=== PATIENT | female | born 1950 | race Caucasian/White ===

== ENCOUNTER → 2017-06-21 | Outpatient (CLI) | payer MEDICARE ==
[2017-06-21 13:32] LABS: HCT 36.6 % (34.0-46.0); HGB 11.6 gm/dL (11.4-16.0); Hypochromasia Slight; MCH 31.4 pg (25.0-35.0); MCHC 31.6 g/dL (31.0-37.0); MCV 99.5 fL (80.0-100.0); Macrocytosis Slight; Mean Platelet Volume 7.3; Platelet Count 244 k/uL (150-450); RBC 3.68 m/uL (3.80-5.40); RDW 14.6 % (11.5-15.5); WBC 11.7 k/uL (3.8-10.6)
[2017-06-21 13:36] LABS: Anion Gap 10 mmol/L; Blood Urea Nitrogen 23 mg/dL (7-17); Calcium 9.6 mg/dL (8.4-10.2); Carbon Dioxide 36 mmol/L (22-30); Chloride 99 mmol/L (98-107); Glucose 170 mg/dL (74-99); Magnesium 1.7 mg/dL (1.6-2.3); Phosphorus 4.1 mg/dL (2.5-4.5); Potassium 3.9 mmol/L (3.5-5.1); Sodium 145 mmol/L (137-145); Uric Acid 6.5 mg/dL (3.7-7.4)
[2017-06-21 13:48] LABS: Appearance,Urine Cloudy (Clear); Bilirubin,Urine Negative (Negative); Blood,Urine Negative (Negative); Color,Urine Yellow; Glucose,Urine (UA) Negative (Negative); Ketones,Urine Negative (Negative); Leukocyte Esterase,Urine Large (Negative); Mucus,Urine Rare /hpf; Nitrite,Urine Negative (Negative); Protein,Urine Trace (Negative); RBC,Urine 2 /hpf (0-5); Specific Gravity,Urine 1.016 (1.001-1.035); Squamous Epithelial Cell,Urine 6 /hpf (0-4); Urobilinogen,Urine <2.0 mg/dL (<2.0); WBC,Urine 169 /hpf (0-5)
[2017-06-21 19:11] LABS: Iron Saturation 18.87 (12.00-45.00)
[2017-06-21 19:42] LABS: Vitamin D 25 Hydroxy 24.3 ng/mL (30.0-100.0)
[2017-06-21 21:48] LABS: Parathyroid Hormone Intact 53.4 pg/mL (14.0-72.0)
== END | disposition home or self-care (01) ==
LOC: LABWHC1 12:36
PROVIDERS: ATTEND Nurse Practitioner Family
DX: E55.9 Vitamin D deficiency, unspecified (principal); M10.9 Gout, unspecified; E21.3 Hyperparathyroidism, unspecified; N39.0 Urinary tract infection, site not specified; D50.9 Iron deficiency anemia, unspecified; N17.9 Acute kidney failure, unspecified
CPT/HCPCS: 36415; 80048; 81001; 82306; 82728; 83540; 83550; 83735; 83970; 84100; 84550; 85027

== ENCOUNTER → 2017-08-16 | Outpatient (CLI) | payer MEDICARE ==
--- NOTE | 2017-08-16 07:27 | US ---
EXAMINATION TYPE: US duplex aorta DATE OF EXAM: 08/16/2017 COMPARISON: NONE CLINICAL HISTORY: Z13.9 screening for disorder. Pt had heart surgery stents 2008 pt on O2 , hard to hold breath EXAM MEASUREMENTS: Abdominal Aorta: Proximal: 2.3 cm Mid: 1.3 cm Distal: 1.2 cm Bifurcation: 0.78 cm 0.86 cm wnl IMPRESSION: No sonographic evidence of abdominal aortic aneurysm.
== END | disposition home or self-care (01) ==
LOC: RADUSWWP 06:56
PROVIDERS: ATTEND Family Medicine
DX: Z13.9 Encounter for screening, unspecified (principal); Z88.0 Allergy status to penicillin
CPT/HCPCS: 93979

== ENCOUNTER → 2017-10-04 | Outpatient (CLI) | payer MEDICARE ==
[2017-10-04 09:54] LABS: Calcium 9.6 mg/dL (8.4-10.2)
== END | disposition home or self-care (01) ==
LOC: LABWHC1 08:34
PROVIDERS: ATTEND Internal Medicine Interventional Cardiology
DX: I10 Essential (primary) hypertension (principal)
CPT/HCPCS: 36415; 80048

== ENCOUNTER → 2017-11-04 | Outpatient (CLI) | payer MEDICARE ==
--- NOTE | 2017-11-08 13:05 | MM ---
Reason for exam: screening (asymptomatic). Last mammogram was performed 11 months ago. History: Patient is postmenopausal. Family history of breast cancer in sister at age 60. Physical Findings: A clinical breast exam by your physician is recommended on an annual basis and results should be correlated with mammographic findings. MG 3D Screening Mammo W/Cad Bilateral CC and MLO view(s) were taken. Prior study comparison: December 02, 2016, mammogram, performed at [facility]. February 26, 2016, mammogram, performed at [facility]. There is chronic nodularity in the left breast. ASSESSMENT: Benign, BI-RAD 2 RECOMMENDATION: Routine screening mammogram of both breasts in 1 year.
== END | disposition home or self-care (01) ==
LOC: RADMAMWWP 09:22
PROVIDERS: ATTEND Family Medicine
DX: Z12.31 Encounter for screening mammogram for malignant neoplasm of breast (principal); Z80.3 Family history of malignant neoplasm of breast; Z78.0 Asymptomatic menopausal state
CPT/HCPCS: 77063; 77067

== ENCOUNTER → 2018-08-15 | Outpatient (CLI) | payer MEDICARE ==
[2018-08-15 08:21] LABS: HCT 41.9 % (34.0-46.0); HGB 13.1 gm/dL (11.4-16.0); MCH 33.8 pg (25.0-35.0); MCHC 31.4 g/dL (31.0-37.0); MCV 107.6 fL (80.0-100.0); Macrocytosis Marked; Mean Platelet Volume 7.3; Platelet Count 197 k/uL (150-450); RBC 3.89 m/uL (3.80-5.40); RDW 15.2 % (11.5-15.5); WBC 12.4 k/uL (3.8-10.6)
[2018-08-15 16:38] LABS: Anion Gap 14.9 mmol/L (4.00-12.00); Calcium 9.9 mg/dL (8.7-10.3); Carbon Dioxide 38.1 mmol/L (21.6-31.8); Potassium 2.9 mmol/L (3.5-5.5)
== END | disposition home or self-care (01) ==
LOC: LABWHC1 07:49
PROVIDERS: ATTEND Internal Medicine Interventional Cardiology
DX: I27.21 Secondary pulmonary arterial hypertension (principal)
CPT/HCPCS: 36415; 80048; 85027

== ENCOUNTER → 2018-08-29 | Outpatient (CLI) | payer MEDICARE ==
[2018-08-29 16:18] LABS: Anion Gap 13.2 mmol/L (4.00-12.00); Calcium 10.6 mg/dL (8.7-10.3); Carbon Dioxide 38.8 mmol/L (21.6-31.8); Potassium 2.8 mmol/L (3.5-5.5)
== END | disposition home or self-care (01) ==
LOC: LABWHC1 08:56
PROVIDERS: ATTEND Nurse Practitioner
DX: E11.9 Type 2 diabetes mellitus without complications (principal); I27.21 Secondary pulmonary arterial hypertension
CPT/HCPCS: 36415; 80048; 83735

== ENCOUNTER 2018-09-06 00:51 | Inpatient (IN) | payer MEDICARE ==
--- NOTE | 2018-09-06 02:32 | XR ---
EXAM: XR Chest, 1 View CLINICAL HISTORY: ITS.REASON XR Reason: chest pain TECHNIQUE: Frontal view of the chest. COMPARISON: No relevant prior studies available. FINDINGS: Lungs: Prominent pulmonary vascularity with mild basilar opacities. Pleural space: No significant pleural effusion or pneumothorax. Heart: Enlarged cardiomediastinal silhouette. Mediastinum: See above. Bones/joints: Sternotomy wires noted. IMPRESSION: 1. Prominent pulmonary vascularity with mild basilar opacities. Correlate clinically regarding edema or infection. 2. Enlarged cardiomediastinal silhouette.
[2018-09-06 03:05] LABS: Basophils % (A) 0 %; Eosinophils # (A) 0.3 k/uL (0-0.7); Eosinophils % (A) 2 %; HCT 42.2 % (34.0-46.0); HGB 14.2 gm/dL (11.4-16.0); Lymphocytes # (A) 1.8 k/uL (1.0-4.8); Lymphocytes % (A) 12 %; MCH 33.9 pg (25.0-35.0); MCHC 33.6 g/dL (31.0-37.0); Macrocytosis Slight; Mean Platelet Volume 9.3; Monocytes # (A) 0.9 k/uL (0-1.0); Monocytes % (A) 6 %; Neutrophils # (A) 11.5 k/uL (1.3-7.7); Neutrophils % (A) 78 %; Platelet Count 179 k/uL (150-450); RBC 4.19 m/uL (3.80-5.40); RDW 15.6 % (11.5-15.5); WBC 14.7 k/uL (3.8-10.6)
--- NOTE | 2018-09-06 03:19 | ED ---
Chest Pain HPI - General Chief Complaint: Chest Pain Stated Complaint: Lft Rib Pain SOB CHF Time Seen by Provider: 09/06/18 01:19 Source: family Mode of arrival: ambulatory Limitations: no limitations - History of Present Illness Initial Comments: This patient is a 67-year-old woman who presents to be evaluated for left-sided chest pain, cough, and shortness of breath. When asked about the chest pain, patient states that it feels like "pleurisy." She believes that it has been coming on since afternoon into the evening. The pain is moderately severe. It is worse with taking a deep breath or with certain movements. Patient also has been somewhat short of breath, stating that it feels like her heart failure is acting up. Patient's family members state that they had checked her pulse ox reading at home and it was low. She also is having cough. MD Complaint: chest pain Onset/Timin -: days(s) Onset: during rest Pain Location: left chest Pain Radiation: none Severity: moderate Quality: aching, sharp Consistency: constant Improves With: nothing Worsens With: inspiration, movement Anginal Symptoms: dyspnea Treatments Prior to Arrival: none - Related Data Home Medications Medication Instructions Recorded Confirmed Apixaban [Eliquis] 5 mg PO BID 03/10/16 09/06/18 Atenolol 25 mg PO BID 03/10/16 09/06/18 Atorvastatin [Lipitor] 40 mg PO DAILY 03/10/16 09/06/18 metFORMIN HCL [Glucophage] 500 mg PO BID 03/10/16 09/06/18 Allopurinol [Zyloprim] 100 mg PO DAILY 03/30/18 09/06/18 Insulin Detemir (Levemir) [Levemir] 20 unit SQ DAILY 03/30/18 09/06/18 Oxybutynin Chloride [Ditropan] 5 mg PO BID 03/30/18 09/06/18 ALPRAZolam [Xanax] 0.5 mg PO DAILY PRN 09/06/18 09/06/18 Clotrimazole 10 mg MUCOUS MEM 5XD 09/06/18 09/06/18 Donepezil [Aricept] 10 mg PO DAILY 09/06/18 09/06/18 Ferrous Sulfate [Iron] 325 mg PO DAILY 09/06/18 09/06/18 INSULIN LISPRO (humaLOG) [humaLOG] 5 units SQ TID 09/06/18 09/06/18 Magnesium 400 mg PO DAILY 09/06/18 09/06/18 Metolazone [Zaroxolyn] 5 mg PO DAILY 09/06/18 09/06/18 Potassium Chloride 10 meq PO DAILY 09/06/18 09/06/18 Allergies Allergy/AdvReac Type Severity Reaction Status Date / Time codeine Allergy "made me Verified 09/06/18 08:21 feel antsy" Penicillins Allergy Swelling Verified 09/06/18 08:21 Review of Systems ROS Statement: Those systems with pertinent positive or pertinent negative responses have been documented in the HPI. ROS Other: All systems not noted in ROS Statement are negative. Constitutional: Denies: fever, chills Respiratory: Reports: cough, dyspnea Cardiovascular: Reports: chest pain, orthopnea, edema. Denies: palpitations, syncope Gastrointestinal: Denies: abdominal pain, nausea, vomiting Genitourinary: Denies: dysuria Musculoskeletal: Denies: back pain Skin: Denies: rash Neurological: Denies: headache, weakness, numbness EKG Findings - EKG Results: EKG: interpreted by ERMD, sinus rhythm (With PACs) EKG shows: bradycardia (Rate 58 bpm) - Blocks, [place], Hypertrophy, ST Abn: AV and intraventricular conduction: 1 AV block, intraventricular conduction delay QRS axis and voltage: left axis deviation (-30 to -90) Repolarization changes or abnormalities: ST or T wave suggestive of ischemia (Possible lateral ischemia.) Past Medical History Past Medical History: Atrial Fibrillation, Coronary Artery Disease (CAD), COPD, CVA/TIA, Diabetes Mellitus, Deep Vein Thrombosis (DVT), Hyperlipidemia, Hypertension, Sleep Apnea/CPAP/BIPAP Additional Past Medical History / Comment(s): O2 USE NEEDED VIA NC AT 3L, HX OF ANEMIA History of Any Multi-Drug Resistant Organisms: None Reported Past Surgical History: Cardiac Valve Replacement, Heart Catheterization With Stent, Hysterectomy, Orthopedic Surgery Additional Past Surgical History / Comment(s): AORTIC VALVE (BOVINE), WESLY FILTER, ZOIE CATARACT SX, HEART STENT X2 Past Anesthesia/Blood Transfusion Reactions: Previous Problems w/ Anesthesia Additional Past Anesthesia/Blood Transfusion Reaction / Comment(s): TROUBLE WAKING UP IN PAST Date of Last Stent Placement:: 2004 Past Psychological History: Anxiety Smoking Status: Former smoker Past Alcohol Use History: None Reported Past Drug Use History: None Reported - Past Family History Father Family Medical History: Cancer Sister(s) Family Medical History: Cancer Additional Family Medical History / Comment(s): BREAST General Exam Limitations: no limitations General appearance: alert, in distress (Patient does appear to be in mild respiratory distress) Head exam: Present: atraumatic, normocephalic Eye exam: Present: normal appearance. Absent: scleral icterus, conjunctival injection Respiratory exam: Present: respiratory distress, rales (Bilateral bases), chest wall tenderness. Absent: wheezes, rhonchi, stridor, accessory muscle use, decreased breath sounds Cardiovascular Exam: Present: regular rate, normal rhythm, normal heart sounds. Absent: systolic murmur, diastolic murmur, rubs, gallop GI/Abdominal exam: Present: soft. Absent: distended, tenderness, guarding, rebound, rigid Extremities exam: Present: normal inspection, normal capillary refill, pedal edema (Mild edema at the ankles bilaterally). Absent: calf tenderness Neurological exam: Present: alert Skin exam: Present: warm, dry, intact, normal color. Absent: rash Course Vital Signs 09/06/18 09/06/18 09/06/18 00:56 01:30 01:50 Temperature 97.8 F Pulse Rate 60 52 L 56 L Pulse Rate [ Pulse Oximetery ] Respiratory 18 Rate Blood Pressure 125/59 119/86 134/64 Blood Pressure [Left Arm] O2 Sat by Pulse 89 L 80 L 94 L Oximetry 09/06/18 09/06/18 09/06/18 02:10 02:20 02:40 Temperature Pulse Rate 56 L 56 L 55 L Pulse Rate [ Pulse Oximetery ] Respiratory Rate Blood Pressure 110/50 111/68 131/51 Blood Pressure [Left Arm] O2 Sat by Pulse 97 92 L 90 L Oximetry 09/06/18 09/06/18 09/06/18 02:50 03:10 03:20 Temperature Pulse Rate 56 L 57 L 57 L Pulse Rate [ Pulse Oximetery ] Respiratory Rate Blood Pressure 112/60 134/67 135/64 Blood Pressure [Left Arm] O2 Sat by Pulse 92 L 83 L 90 L Oximetry 09/06/18 09/06/18 09/06/18 03:40 03:50 04:10 Temperature Pulse Rate 56 L 56 L 53 L Pulse Rate [ Pulse Oximetery ] Respiratory Rate Blood Pressure 152/78 124/97 128/63 Blood Pressure [Left Arm] O2 Sat by Pulse 82 L 95 89 L Oximetry 09/06/18 09/06/18 09/06/18 04:20 04:40 04:50 Temperature Pulse Rate 59 L 58 L 58 L Pulse Rate [ Pulse Oximetery ] Respiratory Rate Blood Pressure 148/84 153/90 125/59 Blood Pressure [Left Arm] O2 Sat by Pulse 89 L 81 L 80 L Oximetry 09/06/18 09/06/18 09/06/18 05:00 05:20 05:30 Temperature Pulse Rate 58 L 60 60 Pulse Rate [ Pulse Oximetery ] Respiratory Rate Blood Pressure 125/59 137/82 137/82 Blood Pressure [Left Arm] O2 Sat by Pulse 88 L 90 L Oximetry 09/06/18 09/06/18 09/06/18 05:40 06:10 06:30 Temperature Pulse Rate 55 L 55 L 63 Pulse Rate [ Pulse Oximetery ] Respiratory Rate Blood Pressure 113/76 136/62 136/62 Blood Pressure [Left Arm] O2 Sat by Pulse 95 100 Oximetry 09/06/18 09/06/18 09/06/18 06:40 06:50 07:00 Temperature Pulse Rate 63 64 62 Pulse Rate [ Pulse Oximetery ] Respiratory Rate Blood Pressure 136/62 136/62 Blood Pressure [Left Arm] O2 Sat by Pulse 90 L 79 L 81 L Oximetry 09/06/18 09/06/18 09/06/18 07:10 07:20 07:30 Temperature Pulse Rate 56 L 62 70 Pulse Rate [ Pulse Oximetery ] Respiratory Rate Blood Pressure 148/47 148/47 148/47 Blood Pressure [Left Arm] O2 Sat by Pulse 83 L 94 L Oximetry 09/06/18 09/06/18 09/06/18 07:47 08:43 09:00 Temperature Pulse Rate Pulse Rate [ 56 L Pulse Oximetery ] Respiratory 18 Rate Blood Pressure Blood Pressure 112/56 [Left Arm] O2 Sat by Pulse 97 96 98 Oximetry 09/06/18 12:00 Temperature Pulse Rate Pulse Rate [ 63 Pulse Oximetery ] Respiratory 18 Rate Blood Pressure Blood Pressure [Left Arm] O2 Sat by Pulse Oximetry Critical Care Time Critical Care Time: Yes (30 minutes) Disposition Clinical Impression: Acute exacerbation of CHF (congestive heart failure) Disposition: ADMITTED IP TO THIS HOSP Condition: Poor
[2018-09-06 03:20] LABS: INR 1.2 (<1.2); Prothrombin Time 12.4 sec (9.0-12.0)
[2018-09-06 03:34] LABS: Albumin 4.2 g/dL (3.5-5.0); Calcium 10.1 mg/dL (8.4-10.2); Potassium 3.1 mmol/L (3.5-5.1); Total Bilirubin 1.8 mg/dL (0.2-1.3); Total Protein 8.1 g/dL (6.3-8.2)
[2018-09-06 03:36] LABS: MCV 100.9 fL (80.0-100.0)
[2018-09-06] MEDS ORDERED: FUROSEMIDE 10 MG/ML 4 ML VIAL IV STA (04:45)
[2018-09-06] MEDS ORDERED: NITROGLYCERIN OINT 1 INCH/GM PACKET TOPICAL STA (04:46)
[2018-09-06] MEDS ORDERED: ACETAMINOPHEN TAB 325 MG TAB PO STA (05:06)
[2018-09-06] MEDS ORDERED: MORPHINE SULFATE 2 MG/ML SYRINGE IVP STA (05:07)
[2018-09-06] MEDS: FUROSEMIDE 10 MG/ML 4 ML VIAL IV SCH ×2 (05:17→17:49)
[2018-09-06] MEDS ORDERED: ONDANSETRON 4 MG/2 ML VIAL IVP STA (06:16)
[2018-09-06] MEDS ORDERED: POTASSIUM CHLORIDE ER 20 MEQ TAB.ER PO STA ×2 (06:39→12:14)
[2018-09-06] MEDS ORDERED: HYDROCHLOROTHIAZIDE 25 MG TAB PO SCH (09:00)
--- NOTE | 2018-09-06 10:14 | NM ---
EXAMINATION TYPE: NM pul perfusion DATE OF EXAM: 09/06/2018 COMPARISON: 09/06/2018 HISTORY: Pain Following administration of 4.86 mCi Tc 99m MAA. Images obtained post injection. FINDINGS: Perfusion images are performed. No ventilation images are acquired. Patient was unable to complete th e ventilation portion exam which results in a nondiagnostic exam. There does appear to be perfusion d efects along the peripheral margin of the left lung. IMPRESSION: Exam is nondiagnostic due to the patient's inability to complete the exam. Fusion defects along the p eripheral margin of the left lung. Pulmonary angles and could not be excluded by this study. Given th e limitation consider CT pulmonary angiogram.
--- NOTE | 2018-09-06 11:54 | ECHOF ---
Referral Reason:CHF exacerbation MEASUREMENTS -------- HEIGHT: 154.9 cm WEIGHT: 106.6 kg BP: 136/62 RVIDd: 3.8 cm (< 3.3) IVSd: 1.1 cm (0.6 - 1.1) LVIDd: 5.3 cm (3.9 - 5.3) LVPWd: 1.1 cm (0.6 - 1.1) IVSs: 1.6 cm LVIDs: 4.4 cm LVPWs: 1.4 cm LA Diam: 3.9 cm (2.7 - 3.8) LAESV Index (A-L): 39.36 ml/m Ao Diam: 2.5 cm (2.0 - 3.7) AV Cusp: 1.6 cm (1.5 - 2.6) MV EXCURSION: 17.007 mm (> 18.000) MV EF SLOPE: 61 mm/s (70 - 150) EPSS: 1.5 cm AV maxP.52 mmHg AV meanP.61 mmHg AR PHT: 643 ms RAP: 15.00 mmHg RVSP: 78.71 mmHg FINDINGS -------- This was a technically adequate study. The left ventricular size is normal. There is borderline concentric left ventricular hypertrophy. Overall left ventricular systolic function is mild-moderately impaired with, an EF between 40 - 45 % . Mid inferoseptal LV wall motion is hypokinetic. Apical inferior LV wall motion is hypokinetic. Apical septum LV wall motion is hypokinetic. The right ventricle is mild to moderately enlarged. LA is moderately dilated 34-39 ml/m2 The right atrium is normal in size. Peak/mean gradient across the Aortic Valve is 68.52mmHg / 31.61mmHg. There is moderate regurgitatio n of the bioprosthetic aortic valve. There is moderate stenosis of the bioprosthetic aortic valve. The mitral valve leaflets are mildly thickened. Mild mitral annular calcification present. Modera te mitral regurgitation is present. Moderate to severe tricuspid regurgitation present. There is severe pulmonary hypertension. The r ight ventricular systolic pressure, as measured by Doppler, is 78.71mmHg. Trace/mild (physiologic) pulmonic regurgitation. The aortic root size is normal. The inferior vena cava is dilated with no significant inspiratory collapse which is consistent estima sade right atrial pressure of >15 mmHg. There is no pericardial effusion. CONCLUSIONS -------- 1. This was a technically adequate study. 2. The left ventricular size is normal. 3. There is borderline concentric left ventricular hypertrophy. 4. Mid inferoseptal LV wall motion is hypokinetic. 5. Apical inferior LV wall motion is hypokinetic. 6. Apical septum LV wall motion is hypokinetic. 7. The right ventricle is mild to moderately enlarged. 8. LA is moderately dilated 34-39 ml/m2 9. The right atrium is normal in size. 10. Peak/mean gradient across the Aortic Valve is 68.52mmHg / 31.61mmHg. 11. There is moderate regurgitation of the bioprosthetic aortic valve. 12. The mitral valve leaflets are mildly thickened. 13. Mild mitral annular calcification present. 14. Moderate mitral regurgitation is present. 15. Moderate to severe tricuspid regurgitation present. 16. There is severe pulmonary hypertension. 17. The right ventricular systolic pressure, as measured by Doppler, is 78.71mmHg. 18. Trace/mild (physiologic) pulmonic regurgitation. 19. The aortic root size is normal. 20. The inferior vena cava is dilated with no significant inspiratory collapse which is consistent es timated right atrial pressure of >15 mmHg. 21. There is no pericardial effusion. DYE EXPERT: Abbey Kaplan RDCS
--- NOTE | 2018-09-06 12:09 | P.HPIM ---
History of Present Illness 67-year-old female on presented emergency room with complaints of left-sided chest pain shortness of breath. Patient found to be hypoxic. Patient is on home O2 for rest trach failure. Patient noted to have congestive heart failure with systolic dysfunction ejection fraction 40-45% severe pulmonary hypertension. Patient does have history of aortic valve replacement. Patient has intermittent atrial fibrillation. Patient has coronary disease with stents. COPD diabetes type 2 hypertension. Patient has developed some weakness and home Review of Systems Constitutional: Reports fatigue Cardiovascular: Reports chest pain, Reports edema, Reports shortness of breath Respiratory: Reports dyspnea Past Medical History Past Medical History: Atrial Fibrillation, Coronary Artery Disease (CAD), COPD, CVA/TIA, Diabetes Mellitus, Deep Vein Thrombosis (DVT), Hyperlipidemia, Hypertension, Sleep Apnea/CPAP/BIPAP Additional Past Medical History / Comment(s): O2 USE NEEDED VIA NC AT 4L, HX OF ANEMIA History of Any Multi-Drug Resistant Organisms: None Reported Past Surgical History: Cardiac Valve Replacement, Coronary Bypass/CABG, Heart Catheterization With Stent, Hysterectomy, Orthopedic Surgery Additional Past Surgical History / Comment(s): AORTIC VALVE (BOVINE), WESLY FILTER, ZOIE CATARACT SX, HEART STENT X2 Past Anesthesia/Blood Transfusion Reactions: Previous Problems w/ Anesthesia Additional Past Anesthesia/Blood Transfusion Reaction / Comment(s): TROUBLE WAKING UP IN PAST Date of Last Stent Placement:: 2004 Past Psychological History: Anxiety Smoking Status: Former smoker Past Alcohol Use History: None Reported Additional Past Alcohol Use History / Comment(s): SMOKED 1PPD OR MORE SINCE AGE 13 (1963) QUIT APPROX 2009 Past Drug Use History: None Reported - Past Family History Father Family Medical History: Cancer Sister(s) Family Medical History: Cancer Additional Family Medical History / Comment(s): BREAST Medications and Allergies Home Medications Medication Instructions Recorded Confirmed Type Apixaban [Eliquis] 5 mg PO BID 03/10/16 09/06/18 History Atenolol 25 mg PO BID 03/10/16 09/06/18 History Atorvastatin [Lipitor] 40 mg PO DAILY 03/10/16 09/06/18 History metFORMIN HCL [Glucophage] 500 mg PO BID 03/10/16 09/06/18 History Allopurinol [Zyloprim] 100 mg PO DAILY 03/30/18 09/06/18 History Insulin Detemir (Levemir) [Levemir] 20 unit SQ DAILY 03/30/18 09/06/18 History Oxybutynin Chloride [Ditropan] 5 mg PO BID 03/30/18 09/06/18 History ALPRAZolam [Xanax] 0.5 mg PO DAILY PRN 09/06/18 09/06/18 History Clotrimazole 10 mg MUCOUS MEM 5XD 09/06/18 09/06/18 History Donepezil [Aricept] 10 mg PO DAILY 09/06/18 09/06/18 History Ferrous Sulfate [Iron] 325 mg PO DAILY 09/06/18 09/06/18 History INSULIN LISPRO (humaLOG) [humaLOG] 5 units SQ TID 09/06/18 09/06/18 History Magnesium 400 mg PO DAILY 09/06/18 09/06/18 History Metolazone [Zaroxolyn] 5 mg PO DAILY 09/06/18 09/06/18 History Potassium Chloride 10 meq PO DAILY 09/06/18 09/06/18 History Allergies Allergy/AdvReac Type Severity Reaction Status Date / Time codeine Allergy "made me Verified 09/06/18 08:21 feel antsy" Penicillins Allergy Swelling Verified 09/06/18 08:21 Physical Exam Vitals: Vital Signs Temp Pulse Pulse Resp BP BP Pulse Ox 09/06/18 09:00 56 L 18 112/56 98 09/06/18 08:43 96 09/06/18 07:47 97 09/06/18 07:30 70 148/47 09/06/18 07:20 62 148/47 94 L 09/06/18 07:10 56 L 148/47 83 L 09/06/18 07:00 62 81 L 09/06/18 06:50 64 136/62 79 L 09/06/18 06:40 63 136/62 90 L 09/06/18 06:30 63 136/62 09/06/18 06:10 55 L 136/62 100 09/06/18 05:40 55 L 113/76 95 09/06/18 05:30 60 137/82 09/06/18 05:20 60 137/82 90 L 09/06/18 05:00 58 L 125/59 88 L 09/06/18 04:50 58 L 125/59 80 L 09/06/18 04:40 58 L 153/90 81 L 04/09/19 04:20 59 L 148/84 89 L 09/06/18 04:10 53 L 128/63 89 L 09/06/18 03:50 56 L 124/97 95 09/06/18 03:40 56 L 152/78 82 L 09/06/18 03:20 57 L 135/64 90 L 09/06/18 03:10 57 L 134/67 83 L 09/06/18 02:50 56 L 112/60 92 L 09/06/18 02:40 55 L 131/51 90 L 09/06/18 02:20 56 L 111/68 92 L 09/06/18 02:10 56 L 110/50 97 09/06/18 01:50 56 L 134/64 94 L 09/06/18 01:30 52 L 119/86 80 L 09/06/18 00:56 97.8 F 60 18 125/59 89 L Intake and Output 09/05/18 09/06/18 09/06/18 22:59 06:59 14:59 Output Total 300 Balance -300 Output: Urine 300 Other: Weight 106.594 kg - Constitutional General appearance: mild distress, obese - EENT Eyes: PERRLA Ears: bilateral: normal - Neck Neck: normal ROM - Respiratory Respiratory: bilateral: diminished - Cardiovascular Rhythm: regular ankle Peripheral Edema: bilateral: 2+ - Gastrointestinal General gastrointestinal: soft - Integumentary Integumentary: normal - Neurologic Neurologic: CNII-XII intact - Musculoskeletal Musculoskeletal: generalized weakness - Psychiatric Psychiatric: A&O x's 3, appropriate affect, intact judgment & insight Results CBC & Chem 7: 09/06/18 01:26 09/06/18 01:26 Labs: Abnormal Lab Results - Last 24 Hours (Table) 09/06/18 09/06/18 09/06/18 Range/Units 01:26 01:26 01:26 WBC 14.7 H (3.8-10.6) k/uL MCV 100.9 H D (80.0-100.0) fL RDW 15.6 H (11.5-15.5) % Neutrophils # 11.5 H (1.3-7.7) k/uL PT 12.4 H (9.0-12.0) sec INR 1.2 H (<1.2) D-Dimer 1.00 H (<0.60) mg/L FEU Potassium 3.1 L (3.5-5.1) mmol/L Chloride 90 L (98-107) mmol/L Carbon Dioxide 38 H (22-30) mmol/L BUN 76 H (7-17) mg/dL Creatinine 1.12 H (0.52-1.04) mg/dL Glucose 236 H (74-99) mg/dL Total Bilirubin 1.8 H (0.2-1.3) mg/dL Alkaline Phosphatase 178 H (38-126) U/L Troponin I (0.000-0.034) ng/mL 09/06/18 09/06/18 Range/Units 01:26 07:48 WBC (3.8-10.6) k/uL MCV (80.0-100.0) fL RDW (11.5-15.5) % Neutrophils # (1.3-7.7) k/uL PT (9.0-12.0) sec INR (<1.2) D-Dimer (<0.60) mg/L FEU Potassium (3.5-5.1) mmol/L Chloride (98-107) mmol/L Carbon Dioxide (22-30) mmol/L BUN (7-17) mg/dL Creatinine (0.52-1.04) mg/dL Glucose (74-99) mg/dL Total Bilirubin (0.2-1.3) mg/dL Alkaline Phosphatase (38-126) U/L Troponin I 0.056 H* 0.048 H* (0.000-0.034) ng/mL Chest x-ray: report reviewed Thrombosis Risk Factor Assmnt - Choose All That Apply Any of the Below Risk Factors Present?: Yes Each Factor Represents 1 point: Medical pt on bed rest, Obesity (BMI >25) Other Risk Factors: Yes Each Risk Factor Represents 2 Points: Age 61-74 years Thrombosis Risk Factor Assessment Total Risk Factor Score: 4 Thrombosis Risk Factor Assessment Level: Moderate Risk Assessment and Plan Plan: Assessment Acute on chronic exacerbation of congestive heart failure ejection fraction 40- 45% systolic dysfunction Severe pulmonary hypertension Respiratory failure acute on chronic hypoxic Intermittent atrial fibrillation Coronary disease with stents COPD CVA/TIA Diabetes type 2 History of DVT Hypertension Hyperlipidemia Sleep apnea on BiPAP Aortic valve replacement Plan Consultation with cardiology and pulmonology
[2018-09-06 12:19] LABS: Calcium 10.1 mg/dL (8.4-10.2)
[2018-09-06 12:32] LABS: Potassium 2.6 mmol/L (3.5-5.1)
[2018-09-06] MEDS: metFORMIN 500 MG TAB PO SCH (12:33)
[2018-09-06] MEDS: ALLOPURINOL 100 MG TAB PO SCH (12:38)
[2018-09-06] MEDS: ATORVASTATIN 40 MG TAB PO SCH (12:38)
[2018-09-06] MEDS: ATENOLOL 25 MG TAB PO SCH ×2 (12:38→20:13)
[2018-09-06] MEDS: APIXABAN 5 MG TAB PO SCH ×2 (12:38→20:13)
[2018-09-06] MEDS: NITROGLYCERIN OINT 1 INCH/GM PACKET TOPICAL SCH ×4 (12:39→21:53)
[2018-09-06] MEDS: INSULIN ASPART (NovoLOG) 100 UNIT/ML VIAL SQ SCH ×3 (12:49→21:54)
[2018-09-06] MEDS ORDERED: Potassium Replacement Protocol 1 EACH MISC MISCELLANE PRN (12:51)
[2018-09-06] MEDS: INSULIN DETEMIR (LEVEMIR) 100 UNIT/ML SYR SQ SCH (15:38)
[2018-09-06 16:45] LABS: Glucose,Whole Blood 202 mg/dL (75-99)
[2018-09-06] MEDS: POTASSIUM CHLORIDE ER 20 MEQ TAB.ER PO SCH ×2 (17:48→19:01)
[2018-09-06] MEDS ORDERED: ONDANSETRON 4 MG/2 ML VIAL IVP PRN (17:59)
[2018-09-06] MEDS ORDERED: IPRATROPIUM-ALBUTEROL 3 ML NEB INHALATION PRN (18:01)
--- NOTE | 2018-09-06 18:03 | P.CNPUL ---
History of Present Illness Consult date: 09/06/18 Requesting physician: Geraldo Frank Reason for consult: chest pain, abnormal CXR/CT Chief complaint: Left-sided chest pain History of present illness: This is a 67-year-old white female patient with history of chronic hypoxemic respiratory failure due to history of COPD, and chronic congestive heart failure, previous history of aortic valve replacement bioprosthetic valve in 2009 at [facility] [place], history of atrial fibrillation on chronic anticoagulation in the form of Eliquis, previous history of smoking, patient carries over 50 years of smoking history, quit smoking in 2009, history of CVA with memory impairment. Patient resides with her daughter and her family, requires extensive supervision and assistance with her ADLs, she walks with a walker. On 09/06/2018 patient was brought to the emergency department evaluation of left- sided chest pain, there is a sharp stabbing pain on the left chest wall under the left breast wrapping around to the left posterior back, which is exacerbated by palpation, deep breathing coughing and moving. There is a question whether the patient had possibly injured herself at home, but she denies any history of falls, denies any injury to the chest wall. There is no bruising on the left chest wall, no obvious deformity. Patient denied any fever or chills. Denied any ringing in the lower extremities. Patient's family noted a low pulse oximetry readings at home, patient is on home oxygen at 4 L. She used to see Dr. [facility], and follows with Dr. IGNACIO Sousa history of congestive heart failure. No cough, no chest congestion, chest x-ray was completed showing prominent pulmonary vascularity with mild basilar opacities, related to congestive heart failure exacerbation, lab work showed white blood cell count of 14.7, hemoglobin of 14.2, d-dimer was mildly elevated at 1.0, sodium was 140, potassium is 3.1, chloride is 90, CO2 is 38, BUN 76, creatinine is 1.12. Patient had a bone elevation of 0.056, 0.048, 0.048. ProBNP was elevated at 5090. Pulse ox was 79% on 4 L, currently patient is on 15 L per high flow nasal cannula, her pulse ox in the 100%, BiPAP was ordered by attending physician, patient does have history of obstructive sleep apnea, she is on CPAP at home and according to her daughter is only at 3 cm of water. Potassium was 2.6, patient is on Zaroxolyn at home. Lung sounds reveal fine rales at the bases, diminished breath sounds. Patient has chronic lower extremity edema. Echocardiogram was completed, and showed the EF of 40-45%, moderate regurgitation of the bioprosthetic aortic valve with peak/mean gradient across the aortic valve of 68.5 mmHg/31.6 mmHg. Moderate mitral regurgitation, severe tricuspid regurgitation, severe pulmonary hypertension with right-sided pressures of 78 mmHg. VQ scan was completed and was nondiagnostic due to patient's inability to complete exam. Review of Systems All systems: negative Constitutional: Denies chills, Denies fever Eyes: denies blurred vision, denies pain Ears, nose, mouth and throat: Denies headache, Denies sore throat Cardiovascular: Reports chest pain, Denies shortness of breath Respiratory: Reports dyspnea, Denies cough Gastrointestinal: Denies abdominal pain, Denies diarrhea, Denies nausea, Denies vomiting Genitourinary: Denies dysuria, Denies hematuria Musculoskeletal: Denies myalgias Integumentary: Denies pruritus, Denies rash Neurological: Denies numbness, Denies weakness Psychiatric: Denies anxiety, Denies depression Endocrine: Denies fatigue, Denies weight change Past Medical History Past Medical History: Atrial Fibrillation, Coronary Artery Disease (CAD), COPD, CVA/TIA, Diabetes Mellitus, Deep Vein Thrombosis (DVT), Hyperlipidemia, Hypertension, Sleep Apnea/CPAP/BIPAP Additional Past Medical History / Comment(s): O2 USE NEEDED VIA NC AT 4L, HX OF ANEMIA History of Any Multi-Drug Resistant Organisms: None Reported Past Surgical History: Cardiac Valve Replacement, Coronary Bypass/CABG, Heart Catheterization With Stent, Hysterectomy, Orthopedic Surgery Additional Past Surgical History / Comment(s): AORTIC VALVE (BOVINE), WESLY FILTER, ZOIE CATARACT SX, HEART STENT X2 Past Anesthesia/Blood Transfusion Reactions: Previous Problems w/ Anesthesia Additional Past Anesthesia/Blood Transfusion Reaction / Comment(s): TROUBLE WAKING UP IN PAST Date of Last Stent Placement:: 2004 Past Psychological History: Anxiety Smoking Status: Former smoker Past Alcohol Use History: None Reported Additional Past Alcohol Use History / Comment(s): SMOKED 1PPD OR MORE SINCE AGE 13 (1965) QUIT APPROX 2009 Past Drug Use History: None Reported - Past Family History Father Family Medical History: Cancer Sister(s) Family Medical History: Cancer Additional Family Medical History / Comment(s): BREAST Medications and Allergies Home Medications Medication Instructions Recorded Confirmed Type Apixaban [Eliquis] 5 mg PO BID 03/10/16 09/06/18 History Atenolol 25 mg PO BID 03/10/16 09/06/18 History Atorvastatin [Lipitor] 40 mg PO DAILY 03/10/16 09/06/18 History metFORMIN HCL [Glucophage] 500 mg PO BID 03/10/16 09/06/18 History Allopurinol [Zyloprim] 100 mg PO DAILY 03/30/18 09/06/18 History Insulin Detemir (Levemir) [Levemir] 20 unit SQ DAILY 03/30/18 09/06/18 History Oxybutynin Chloride [Ditropan] 5 mg PO BID 03/30/18 09/06/18 History ALPRAZolam [Xanax] 0.5 mg PO DAILY PRN 09/06/18 09/06/18 History Clotrimazole 10 mg MUCOUS MEM 5XD 09/06/18 09/06/18 History Donepezil [Aricept] 10 mg PO DAILY 09/06/18 09/06/18 History Ferrous Sulfate [Iron] 325 mg PO DAILY 09/06/18 09/06/18 History INSULIN LISPRO (humaLOG) [humaLOG] 5 units SQ TID 09/06/18 09/06/18 History Magnesium 400 mg PO DAILY 09/06/18 09/06/18 History Metolazone [Zaroxolyn] 5 mg PO DAILY 09/06/18 09/06/18 History Potassium Chloride 10 meq PO DAILY 09/06/18 09/06/18 History Allergies Allergy/AdvReac Type Severity Reaction Status Date / Time codeine Allergy "made me Verified 09/06/18 08:21 feel antsy" Penicillins Allergy Swelling Verified 09/06/18 08:21 Physical Exam Vitals: Vital Signs Temp Pulse Pulse Resp BP BP Pulse Ox 09/06/18 17:21 100 09/06/18 15:30 96.8 F L 54 L 18 113/60 100 09/06/18 12:00 63 18 09/06/18 09:00 56 L 18 112/56 98 09/06/18 08:43 96 09/06/18 07:47 97 09/06/18 07:30 70 148/47 09/06/18 07:20 62 148/47 94 L 09/06/18 07:10 56 L 148/47 83 L 09/06/18 07:00 62 81 L 09/06/18 06:50 64 136/62 79 L 09/06/18 06:40 63 136/62 90 L 09/06/18 06:30 63 136/62 09/06/18 06:10 55 L 136/62 100 09/06/18 05:40 55 L 113/76 95 09/06/18 05:30 60 137/82 09/06/18 05:20 60 137/82 90 L 09/06/18 05:00 58 L 125/59 88 L 09/06/18 04:50 58 L 125/59 80 L 09/06/18 04:40 58 L 153/90 81 L 09/06/18 04:20 59 L 148/84 89 L 09/06/18 04:10 53 L 128/63 89 L 09/06/18 03:50 56 L 124/97 95 09/06/18 03:40 56 L 152/78 82 L 09/06/18 03:20 57 L 135/64 90 L 09/06/18 03:10 57 L 134/67 83 L 09/06/18 02:50 56 L 112/60 92 L 09/06/18 02:40 55 L 131/51 90 L 09/06/18 02:20 56 L 111/68 92 L 09/06/18 02:10 56 L 110/50 97 09/06/18 01:50 56 L 134/64 94 L 09/06/18 01:30 52 L 119/86 80 L 09/06/18 00:56 97.8 F 60 18 125/59 89 L Intake and Output 09/06/18 09/06/18 09/06/18 06:59 14:59 22:59 Output Total 300 Balance -300 Output: Urine 300 Other: Voiding Method Bedpan Bedpan # Voids 1 Weight 106.594 kg GENERAL EXAM: Alert, pleasant, 67-year-old white female, on 15 L per high flow nasal cannula, with a pulse ox of 100%, comfortable in no apparent distress. She is reluctant to take deep breaths and cough, and move in bed related to left-sided chest wall pain with movement HEAD: Normocephalic/atraumatic. EYES: Normal reaction of pupils, equal size. Conjunctiva pink, sclera white. NOSE: Clear with pink turbinates. THROAT: No erythema or exudates. NECK: No masses, no JVD, no thyroid enlargement, no adenopathy. CHEST: No chest wall deformity. Symmetrical expansion. LUNGS: Equal air entry with diffuse breath sounds, and basilar crackles CVS: Regular rate and rhythm, normal S1 and S2, no gallops, no murmurs, no rubs ABDOMEN: Soft, nontender. No hepatosplenomegaly, normal bowel sounds, no guarding or rigidity. EXTREMITIES: No clubbing, 1+ lower extremity edema, no cyanosis, 2+ pulses and upper and lower extremities. MUSCULOSKELETAL: Muscle strength and tone normal. SPINE: No scoliosis or deformity SKIN: No rashes CENTRAL NERVOUS SYSTEM: Alert and oriented -3. No focal deficits, tone is nor mal in all 4 extremities. PSYCHIATRIC: Alert and oriented -3. Appropriate affect. Intact judgment and insight. Results - Laboratory Findings CBC and BMP: 09/06/18 01:26 09/06/18 16:49 PT/INR, D-dimer PT 12.4 sec (9.0-12.0) H 09/06/18 01:26 INR 1.2 (<1.2) H 09/06/18 01:26 D-Dimer 1.00 mg/L FEU (<0.60) H 09/06/18 01:26 Abnormal lab findings: Abnormal Labs 09/06/18 09/06/18 09/06/18 01:26 01:26 01:26 WBC 14.7 H MCV 100.9 H D RDW 15.6 H Neutrophils # 11.5 H PT 12.4 H INR 1.2 H D-Dimer 1.00 H Potassium 3.1 L Chloride 90 L Carbon Dioxide 38 H BUN 76 H Creatinine 1.12 H Glucose 236 H POC Glucose (mg/dL) Total Bilirubin 1.8 H Alkaline Phosphatase 178 H Troponin I 09/06/18 09/06/18 09/06/18 01:26 07:48 07:48 WBC MCV RDW Neutrophils # PT INR D-Dimer Potassium 2.6 L* Chloride 95 L Carbon Dioxide 35 H BUN 71 H Creatinine 1.06 H Glucose 225 H POC Glucose (mg/dL) Total Bilirubin Alkaline Phosphatase Troponin I 0.056 H* 0.048 H* 09/06/18 09/06/18 09/06/18 14:53 16:40 16:49 WBC MCV RDW Neutrophils # PT INR D-Dimer Potassium 3.0 L Chloride Carbon Dioxide BUN Creatinine Glucose POC Glucose (mg/dL) 202 H Total Bilirubin Alkaline Phosphatase Troponin I 0.048 H* - Diagnostic Findings Chest x-ray: report reviewed, image reviewed Additional studies: EKG reviewed, echocardiogram has been reviewed Assessment and Plan Plan: Assessment #1. Acute on chronic hypoxemic respiratory failure related to acute exacerbation of congestive heart failure with systolic dysfunction #2. Left-sided chest wall pain exacerbated by movement, outpatient and coughing #3. Elevated troponins of 0.056, 0.048, 0.048, and EKG was sinus bradycardia with first-degree AV block, with T-wave inversion in the lateral leads suggesting lateral ischemia #4. Elevated d-dimer, nonspecific, suspicion for pulmonary embolism is quite low especially in view of patient being on chronic anticoagulation. #5. Paroxysmal atrial fibrillation, on Eliquis #6. Valvular heart disease, is post aortic valve replacement in 2010 bioprosthetic valve at [facility], echocardiogram showed moderate regurgitation of the bioprosthetic aortic valve, moderate mitral regurgitation, and severe tricuspid regurgitation #7. Pulmonary hypertension with a right-sided pressures of 78 mmHg #8. Advanced COPD with chronic hypoxemic respiratory failure #9. Chronic congestive heart failure with systolic dysfunction #10. History of [place] filter insertion in 2010, for history of DVT #11. Hypertension, hyperlipidemia #12. Obstructive sleep apnea on CPAP therapy #13. Coronary artery disease #14. History of CVA/TIA with memory impairment #15. Gait dysfunction #16. Former smoker, quit smoking in 2009, on and off smoked for 50 years, a pack a day Plan: Continue the IV diuretics, chest x-ray has been reviewed with Dr. Betts, shows mostly changes compatible with congestive heart failure. Patient is on 15 L of oxygen, BiPAP support at night and as needed. Continue oral anticoagulation. Lasix, we'll stop the hydrodiurril, patient is receiving oral medications for the chest wall discomfort. Replace potassium per protocol. Accurate I&O's, daily weights. Cardiology has been consulted. No fever or chills. We'll order breathing treatments. Repeat chest x-ray in the morning. will continue to follow I performed a history & physical examination of the patient and discussed their management with my nurse practitioner, Susan Burton. I reviewed the nurse practitioner's note and agree with the documented findings and plan of care. Lung sounds are positive for coarse rales. The findings and the impression was discussed with the patient. I attest to the documentation by the nurse practitioner. Time with Patient: Greater than 30
[2018-09-06] MEDS: IPRATROPIUM-ALBUTEROL 3 ML NEB INHALATION SCH (19:31)
--- NOTE | 2018-09-06 19:59 | P.CRDCN ---
History of Present Illness History of present illness: This is Dr. 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 I repeatedly questioned her as well as her daughter the patient categorically denied any chest discomfort or any undue shortness of breath. ROS: No fever chills or rigors, no cough, phlegm or expectoration, no nausea, vomiting or diarrhea, no hematuria, dysuria, no musculoskeletal complaints, no strokes or seizures, no skin lesions. EXAMINATION: Blood pressure 130/60 millimeters of the pulse rate in the 50s afebrile Breath sounds are reduced bilaterally with some crackles at the bases Heart sounds soft no murmurs or gallops Abdomen is soft Extremities warm REVIEW OF LABS, ECG & MEDICAL DATA Hemoglobin 14.2, white count 14.7 Sodium 140 Potassium 3.1 and 2.6 BUN 71 creatinine 1.06 Report Abnormal troponins of 0.056, 0.048 and 0.048 Past Medical History Past Medical History: Atrial Fibrillation, Coronary Artery Disease (CAD), COPD, CVA/TIA, Diabetes Mellitus, Deep Vein Thrombosis (DVT), Hyperlipidemia, H ypertension, Sleep Apnea/CPAP/BIPAP Additional Past Medical History / Comment(s): O2 USE NEEDED VIA NC AT 4L, HX OF ANEMIA History of Any Multi-Drug Resistant Organisms: None Reported Past Surgical History: Cardiac Valve Replacement, Coronary Bypass/CABG, Heart Catheterization With Stent, Hysterectomy, Orthopedic Surgery Additional Past Surgical History / Comment(s): AORTIC VALVE (BOVINE), WESLY FILTER, ZOIE CATARACT SX, HEART STENT X2 Past Anesthesia/Blood Transfusion Reactions: Previous Problems w/ Anesthesia Additional Past Anesthesia/Blood Transfusion Reaction / Comment(s): TROUBLE WAKING UP IN PAST Date of Last Stent Placement:: 2004 Past Psychological History: Anxiety Smoking Status: Former smoker Past Alcohol Use History: None Reported Additional Past Alcohol Use History / Comment(s): SMOKED 1PPD OR MORE SINCE AGE 13 (1965) QUIT APPROX 2009 Past Drug Use History: None Reported - Past Family History Father Family Medical History: Cancer Sister(s) Family Medical History: Cancer Additional Family Medical History / Comment(s): BREAST Medications and Allergies Home Medications Medication Instructions Recorded Confirmed Type Apixaban [Eliquis] 5 mg PO BID 03/10/16 09/06/18 History RX: Atenolol 25 mg PO BID 03/10/16 09/06/18 History RX: Atorvastatin [Lipitor] 40 mg PO DAILY 03/10/16 09/06/18 History RX: metFORMIN HCL [Glucophage] 500 mg PO BID 03/10/16 09/06/18 History Insulin Detemir (Levemir) [Levemir] 20 unit SQ DAILY 03/30/18 09/06/18 History RX: Allopurinol [Zyloprim] 100 mg PO DAILY 03/30/18 09/06/18 History RX: Oxybutynin Chloride [Ditropan] 5 mg PO BID 03/30/18 09/06/18 History ALPRAZolam [Xanax] 0.5 mg PO DAILY PRN 09/06/18 09/06/18 History Donepezil [Aricept] 10 mg PO DAILY 09/06/18 09/06/18 History Ferrous Sulfate [Iron] 325 mg PO DAILY 09/06/18 09/06/18 History INSULIN LISPRO (humaLOG) [humaLOG] 5 units SQ TID 09/06/18 09/06/18 History Metolazone [Zaroxolyn] 5 mg PO DAILY 09/06/18 09/06/18 History RX: Clotrimazole 10 mg MUCOUS MEM 5XD 09/06/18 09/06/18 History RX: Magnesium 400 mg PO DAILY 09/06/18 09/06/18 History RX: Potassium Chloride 10 meq PO DAILY 09/06/18 09/06/18 History Allergies Allergy/AdvReac Type Severity Reaction Status Date / Time codeine Allergy "made me Verified 09/06/18 08:21 feel antsy" Penicillins Allergy Swelling Verified 09/06/18 08:21 Physical Exam Vitals: Vital Signs Temp Pulse Pulse Resp BP BP Pulse Ox 09/06/18 19:44 64 09/06/18 19:31 60 09/06/18 17:21 100 09/06/18 15:30 96.8 F L 54 L 18 113/60 100 09/06/18 12:00 63 18 09/06/18 09:00 56 L 18 112/56 98 09/06/18 08:43 96 09/06/18 07:47 97 09/06/18 07:30 70 148/47 09/06/18 07:20 62 148/47 94 L 09/06/18 07:10 56 L 148/47 83 L 09/06/18 07:00 62 81 L 09/06/18 06:50 64 136/62 79 L 09/06/18 06:40 63 136/62 90 L 09/06/18 06:30 63 136/62 09/06/18 06:10 55 L 136/62 100 09/06/18 05:40 55 L 113/76 95 09/06/18 05:30 60 137/82 09/06/18 05:20 60 137/82 90 L 09/06/18 05:00 58 L 125/59 88 L 09/06/18 04:50 58 L 125/59 80 L 09/06/18 04:40 58 L 153/90 81 L 09/06/18 04:20 59 L 148/84 89 L 09/06/18 04:10 53 L 128/63 89 L 09/06/18 03:50 56 L 124/97 95 09/06/18 03:40 56 L 152/78 82 L 09/06/18 03:20 57 L 135/64 90 L 09/06/18 03:10 57 L 134/67 83 L 09/06/18 02:50 56 L 112/60 92 L 09/06/18 02:40 55 L 131/51 90 L 09/06/18 02:20 56 L 111/68 92 L 09/06/18 02:10 56 L 110/50 97 09/06/18 01:50 56 L 134/64 94 L 09/06/18 01:30 52 L 119/86 80 L 09/06/18 00:56 97.8 F 60 18 125/59 89 L Intake and Output 09/06/18 09/06/18 09/06/18 06:59 14:59 22:59 Output Total 300 Balance -300 Output: Urine 300 Other: Voiding Method Bedpan Bedpan # Voids 1 Weight 106.594 kg Results 09/06/18 01:26 09/06/18 16:49 Cardiac Enzymes 09/06/18 09/06/18 09/06/18 Range/Units 01:26 01:26 07:48 AST 33 (14-36) U/L Troponin I 0.056 H* 0.048 H* (0.000-0.034) ng/mL 09/06/18 Range/Units 14:53 AST (14-36) U/L Troponin I 0.048 H* (0.000-0.034) ng/mL Coagulation 09/06/18 Range/Units 01:26 PT 12.4 H (9.0-12.0) sec APTT 29.0 (22.0-30.0) sec CBC 09/06/18 Range/Units 01:26 WBC 14.7 H (3.8-10.6) k/uL RBC 4.19 (3.80-5.40) m/uL Hgb 14.2 (11.4-16.0) gm/dL Hct 42.2 (34.0-46.0) % Plt Count 179 (150-450) k/uL Comprehensive Metabolic Panel 09/06/18 09/06/18 09/06/18 Range/Units 01:26 07:48 16:49 Sodium 140 141 (137-145) mmol/L Potassium 3.1 L 2.6 L* 3.0 L (3.5-5.1) mmol/L Chloride 90 L 95 L (98-107) mmol/L Carbon Dioxide 38 H 35 H (22-30) mmol/L BUN 76 H 71 H (7-17) mg/dL Creatinine 1.12 H 1.06 H (0.52-1.04) mg/dL Glucose 236 H 225 H (74-99) mg/dL Calcium 10.1 10.1 (8.4-10.2) mg/dL AST 33 (14-36) U/L ALT 37 (9-52) U/L Alkaline Phosphatase 178 H (38-126) U/L Total Protein 8.1 (6.3-8.2) g/dL Albumin 4.2 (3.5-5.0) g/dL Current Medications Generic Name Dose Route Start Last Admin Trade Name Freq PRN Reason Stop Dose Admin Albuterol/Ipratropium 3 ml 09/06/18 20:00 09/06/18 19:31 Duoneb 0.5 Mg-3 Mg/3 Ml Soln INHALATION 3 ml RT-QID BRISA Administration Albuterol/Ipratropium 3 ml 09/06/18 18:01 Duoneb 0.5 Mg-3 Mg/3 Ml Soln INHALATION RT-Q2H PRN Shortness Of Breath Or Wheezing Allopurinol 100 mg 09/06/18 09:00 09/06/18 12:38 Zyloprim PO 100 mg DAILY [facility] Administration Apixaban 5 mg 09/06/18 09:00 09/06/18 12:38 Eliquis PO 5 mg BID [facility] Administration Atenolol 25 mg 09/06/18 09:00 09/06/18 12:38 Tenormin PO 25 mg BID [facility] Administration Atorvastatin Calcium 40 mg 09/06/18 09:00 09/06/18 12:38 Lipitor PO 40 mg DAILY [facility] Administration Furosemide 40 mg 09/06/18 05:15 09/06/18 17:49 Lasix IV 40 mg Q12H [facility] Administration Insulin Aspart 5 unit 09/06/18 09:00 09/06/18 17:49 Novolog SQ Not Given TID [facility] Insulin Detemir 30 unit 09/06/18 09:00 09/06/18 15:38 Levemir SQ Not Given DAILY [facility] Metformin HCl 500 mg 09/06/18 07:30 09/06/18 12:33 Glucophage PO Not Given [id number] [facility] Miscellaneous Information 1 each 09/06/18 12:51 Potassium Per Protocol MISCELLANE DAILY PRN Per Protocol Protocol Nitroglycerin 0.5 inch 09/06/18 09:00 09/06/18 17:48 Nitro-Bid Oint TOPICAL 0.5 inch QID [facility] Administration Ondansetron HCl 4 mg 09/06/18 17:59 Zofran IVP Q6HR PRN Nausea And Vomiting Sodium Chloride 10 ml 09/06/18 09:00 09/06/18 12:34 Saline Flush IV Not Given BID [facility] Spironolactone 25 mg 09/06/18 19:15 Aldactone PO DAILY [facility] Trazodone HCl 50 mg 09/06/18 21:00 Desyrel PO HS [facility] Intake and Output 09/06/18 09/06/18 09/06/18 06:59 14:59 22:59 Output Total 300 Balance -300 Output: Urine 300 Other: Voiding Method Bedpan Bedpan # Voids 1 Weight 106.594 kg 09/06/18 01:26 09/06/18 16:49
[2018-09-06] MEDS: traZODone HCL 50 MG TAB PO SCH (20:13)
[2018-09-06] MEDS: SPIRONOLACTONE 25 MG TAB PO SCH (20:13)
[2018-09-06] MEDS: ACETAMINOPHEN TAB 325 MG TAB PO PRN (20:40)
[2018-09-06 20:56] LABS: Glucose,Whole Blood 215 mg/dL (75-99)
[2018-09-07] MEDS: ACETAMINOPHEN TAB 325 MG TAB PO PRN ×2 (03:37→15:31)
[2018-09-07 05:45] LABS: Glucose,Whole Blood 199 mg/dL (75-99)
[2018-09-07] MEDS: FUROSEMIDE 10 MG/ML 4 ML VIAL IV SCH (06:08)
[2018-09-07] MEDS: metFORMIN 500 MG TAB PO SCH (06:35)
[2018-09-07 07:32] LABS: Calcium 9.4 mg/dL (8.4-10.2); Potassium 3.6 mmol/L (3.5-5.1)
[2018-09-07 07:42] LABS: Basophils % (A) 0 %; Eosinophils # (A) 0.3 k/uL (0-0.7); Eosinophils % (A) 2 %; HCT 41.2 % (34.0-46.0); HGB 13.2 gm/dL (11.4-16.0); Lymphocytes # (A) 1.6 k/uL (1.0-4.8); Lymphocytes % (A) 11 %; MCH 33.1 pg (25.0-35.0); MCV 103.5 fL (80.0-100.0); Macrocytosis Slight; Monocytes # (A) 0.9 k/uL (0-1.0); Monocytes % (A) 6 %; Neutrophils # (A) 11.5 k/uL (1.3-7.7); Neutrophils % (A) 79 %; Platelet Count 157 k/uL (150-450); RBC 3.98 m/uL (3.80-5.40); RDW 14.6 % (11.5-15.5); WBC 14.5 k/uL (3.8-10.6)
[2018-09-07] MEDS: IPRATROPIUM-ALBUTEROL 3 ML NEB INHALATION SCH ×4 (07:58→19:43)
[2018-09-07 08:28] LABS: Large Platelets Present
--- NOTE | 2018-09-07 08:41 | XR ---
EXAMINATION TYPE: XR chest 1V portable DATE OF EXAM: 09/07/2018 COMPARISON: Prior chest x-ray 09/06/2018 HISTORY: Follow-up, shortness of breath TECHNIQUE: Single frontal view of the chest is obtained. FINDINGS: Findings are similar to prior exam. Retrocardiac density with central lucency may represen t hiatal hernia. Patient is post median sternotomy and the heart remains enlarged. Interstitium is in creased. IMPRESSION: Correlate for congestive heart failure.
[2018-09-07] MEDS: INSULIN DETEMIR (LEVEMIR) 100 UNIT/ML SYR SQ SCH (10:01)
[2018-09-07] MEDS: ATENOLOL 25 MG TAB PO SCH ×2 (10:02→20:53)
[2018-09-07] MEDS: APIXABAN 5 MG TAB PO SCH ×2 (10:02→20:53)
[2018-09-07] MEDS: ALLOPURINOL 100 MG TAB PO SCH (10:02)
[2018-09-07] MEDS: ATORVASTATIN 40 MG TAB PO SCH (10:02)
[2018-09-07] MEDS: SPIRONOLACTONE 25 MG TAB PO SCH (10:03)
[2018-09-07] MEDS: NITROGLYCERIN OINT 1 INCH/GM PACKET TOPICAL SCH ×4 (10:03→22:37)
[2018-09-07] MEDS: INSULIN ASPART (NovoLOG) 100 UNIT/ML VIAL SQ SCH ×3 (10:03→20:53)
[2018-09-07 12:10] LABS: Glucose,Whole Blood 180 mg/dL (75-99)
--- NOTE | 2018-09-07 13:04 | P.PN ---
Subjective Patient remarkably improved is a consultation with cardiology and pulmonology Objective - Vital Signs Vital signs: Vital Signs Temp 97.0 F L 09/07/18 08:00 Pulse 55 L 09/07/18 12:00 Resp 20 09/07/18 12:00 BP 122/55 09/07/18 12:00 Pulse Ox 98 09/07/18 12:00 Intake & Output 09/06/18 09/07/18 09/07/18 18:59 06:59 18:59 Intake Total 900 418 Output Total 300 600 Balance -300 300 418 Weight 94.5 kg Intake: Oral 900 418 Output: Urine 300 600 Other: Voiding Method Bedpan Diaper # Voids 1 - Constitutional General appearance: Present: mild distress - EENT Eyes: Present: PERRLA Ears: bilateral: normal - Neck Neck: Present: normal ROM - Respiratory Respiratory: bilateral: diminished - Cardiovascular Rhythm: regular Abnormal Heart Sounds: Present: systolic murmur - Gastrointestinal General gastrointestinal: Present: soft - Integumentary Integumentary: Present: normal - Neurologic Neurologic: Present: CNII-XII intact - Musculoskeletal Musculoskeletal: Present: generalized weakness - Psychiatric Psychiatric: Present: A&O x's 3, appropriate affect, intact judgment & insight - Labs CBC & Chem 7: 09/07/18 06:44 09/07/18 06:44 Labs: Abnormal Lab Results - Last 24 Hours (Table) 09/06/18 09/06/18 09/06/18 Range/Units 14:53 16:40 16:49 WBC (3.8-10.6) k/uL MCV (80.0-100.0) fL Neutrophils # (1.3-7.7) k/uL Potassium 3.0 L (3.5-5.1) mmol/L Chloride (98-107) mmol/L Carbon Dioxide (22-30) mmol/L BUN (7-17) mg/dL Creatinine (0.52-1.04) mg/dL Glucose (74-99) mg/dL POC Glucose (mg/dL) 202 H (75-99) mg/dL Troponin I 0.048 H* (0.000-0.034) ng/mL 09/06/18 09/07/18 09/07/18 Range/Units 20:54 05:43 06:44 WBC 14.5 H (3.8-10.6) k/uL MCV 103.5 H (80.0-100.0) fL Neutrophils # 11.5 H (1.3-7.7) k/uL Potassium (3.5-5.1) mmol/L Chloride (98-107) mmol/L Carbon Dioxide (22-30) mmol/L BUN (7-17) mg/dL Creatinine (0.52-1.04) mg/dL Glucose (74-99) mg/dL POC Glucose (mg/dL) 215 H 199 H (75-99) mg/dL Troponin I (0.000-0.034) ng/mL 09/07/18 09/07/18 Range/Units 06:44 11:55 WBC (3.8-10.6) k/uL MCV (80.0-100.0) fL Neutrophils # (1.3-7.7) k/uL Potassium (3.5-5.1) mmol/L Chloride 89 L (98-107) mmol/L Carbon Dioxide 43 H* (22-30) mmol/L BUN 67 H (7-17) mg/dL Creatinine 1.34 H (0.52-1.04) mg/dL Glucose 213 H (74-99) mg/dL POC Glucose (mg/dL) 180 H (75-99) mg/dL Troponin I (0.000-0.034) ng/mL Assessment and Plan Plan: Assessment Acute on chronic congestive heart failure systolic dysfunction 40-45% with myopa thy Severe pulmonary hypertension Respiratory failure acute on chronic hypoxic Atrial fibrillation history Coronary disease with stents COPD History of CVA/TIA Diabetes type 2 History of DVT Hyperlipidemia Hypertension Sleep apnea with BiPAP Aortic valve replacement Plan Continue consultation with pulmonology and cardiology
--- NOTE | 2018-09-07 14:03 | P.PN ---
Subjective Progress Note Date: 09/07/18 Principal diagnosis: Acute on chronic hypoxemic respiratory failure related to acute exacerbation of congestive heart failure with systolic dysfunction. This is a 67-year-old white female patient with history of chronic hypoxemic respiratory failure due to history of COPD, and chronic congestive heart failure, previous history of aortic valve replacement bioprosthetic valve in 2009 at [facility], history of atrial fibrillation on chronic anticoagulation in the form of Eliquis, previous history of smoking, patient carries over 50 years of smoking history, quit smoking in 2009, history of CVA with memory impairment. Patient resides with her daughter and her family, requires extensive supervision and assistance with her ADLs, she walks with a walker. On 09/06/2018 patient was brought to the emergency department evaluation of left- sided chest pain, there is a sharp stabbing pain on the left chest wall under the left breast wrapping around to the left posterior back, which is exacerbated by palpation, deep breathing coughing and moving. There is a question whether the patient had possibly injured herself at home, but she denies any history of falls, denies any injury to the chest wall. There is no bruising on the left chest wall, no obvious deformity. Patient denied any fever or chills. Denied any ringing in the lower extremities. Patient's family noted a low pulse oximetry readings at home, patient is on home oxygen at 4 L. She used to see Dr. [facility], and follows with Dr. IGNACIO Sousa history of congestive heart failure. No cough, no chest congestion, chest x-ray was completed showing prominent pulmonary vascularity with mild basilar opacities, related to congestive heart failure exacerbation, lab work showed white blood cell count of 14.7, hemoglobin of 14.2, d-dimer was mildly elevated at 1.0, sodium was 140, potassium is 3.1, chloride is 90, CO2 is 38, BUN 76, creatinine is 1.12. Patient had a bone elevation of 0.056, 0.048, 0.048. ProBNP was elevated at 5090. Pulse ox was 79% on 4 L, currently patient is on 15 L per high flow nasal cannula, her pulse ox in the 100%, BiPAP was ordered by attending physician, patient does have history of obstructive sleep apnea, she is on CPAP at home and according to her daughter is only at 3 cm of water. Potassium was 2.6, patient is on Zaroxolyn at home. Lung sounds reveal fine rales at the bases, diminished breath sounds. Patient has chronic lower extremity edema. Echocardiogram was completed, and showed the EF of 40-45%, moderate regurgitation of the bioprosthetic aortic valve with peak/mean gradient across the aortic valve of 68.5 mmHg/31.6 mmHg. Moderate mitral regurgitation, severe tricuspid regurgitation, severe pulmonary hypertension with right-sided pressures of 78 mmHg. VQ scan was completed and was nondiagnostic due to patient's inability to complete exam. Patient is seen today 09/07/2018 in follow-up on the selective care unit. She is currently awake and alert in no acute distress. Sitting comfortably in bed. Still quite dyspneic with minimal exertion. Still on 15 L high flow nasal cannula to maintain O2 saturations in the 90s. She's been afebrile. Rate controlled. Hemodynamically stable. White count 14.5. Hemoglobin 13.2. Bicarb 43. Creatinine 1.34. She remains on ceftriaxone and azithromycin, bronchodilators and IV diuretics. Chest x-ray continued to show evidence of congestive heart failure. Objective - Vital Signs Vital signs: Vital Signs Temp 97.0 F L 09/07/18 08:00 Pulse 55 L 09/07/18 12:00 Resp 20 09/07/18 12:00 BP 122/55 09/07/18 12:00 Pulse Ox 98 09/07/18 12:00 Intake & Output 09/06/18 09/07/18 09/07/18 18:59 06:59 18:59 Intake Total 900 418 Output Total 300 600 Balance -300 300 418 Weight 94.5 kg Intake: Oral 900 418 Output: Urine 300 600 Other: Voiding Method Bedpan Diaper # Voids 1 - Exam GENERAL EXAM: Alert, pleasant, 67-year-old white female, on 15 L per high flow nasal cannula, with a pulse ox of 98%, comfortable in no apparent distress. HEAD: Normocephalic/atraumatic. EYES: Normal reaction of pupils, equal size. Conjunctiva pink, sclera white. NOSE: Clear with pink turbinates. THROAT: No erythema or exudates. NECK: No masses, no JVD, no thyroid enlargement, no adenopathy. CHEST: No chest wall deformity. Symmetrical expansion. LUNGS: Equal air entry with diffuse breath sounds, and basilar crackles CVS: Regular rate and rhythm, normal S1 and S2, no gallops, no murmurs, no rubs ABDOMEN: Soft, nontender. No hepatosplenomegaly, normal bowel sounds, no guarding or rigidity. EXTREMITIES: No clubbing, 1+ lower extremity edema, no cyanosis, 2+ pulses and upper and lower extremities. MUSCULOSKELETAL: Muscle strength and tone normal. SPINE: No scoliosis or deformity SKIN: No rashes CENTRAL NERVOUS SYSTEM:No focal deficits, tone is normal in all 4 extremities. PSYCHIATRIC: Alert and oriented -3. Appropriate affect. Intact judgment and insight. - Labs CBC & Chem 7: 09/07/18 06:44 09/07/18 06:44 Labs: Abnormal Lab Results - Last 24 Hours (Table) 09/06/18 09/06/18 09/06/18 Range/Units 14:53 16:40 16:49 WBC (3.8-10.6) k/uL MCV (80.0-100.0) fL Neutrophils # (1.3-7.7) k/uL Potassium 3.0 L (3.5-5.1) mmol/L Chloride (98-107) mmol/L Carbon Dioxide (22-30) mmol/L BUN (7-17) mg/dL Creatinine (0.52-1.04) mg/dL Glucose (74-99) mg/dL POC Glucose (mg/dL) 202 H (75-99) mg/dL Troponin I 0.048 H* (0.000-0.034) ng/mL 09/06/18 09/07/18 09/07/18 Range/Units 20:54 05:43 06:44 WBC 14.5 H (3.8-10.6) k/uL MCV 103.5 H (80.0-100.0) fL Neutrophils # 11.5 H (1.3-7.7) k/uL Potassium (3.5-5.1) mmol/L Chloride (98-107) mmol/L Carbon Dioxide (22-30) mmol/L BUN (7-17) mg/dL Creatinine (0.52-1.04) mg/dL Glucose (74-99) mg/dL POC Glucose (mg/dL) 215 H 199 H (75-99) mg/dL Troponin I (0.000-0.034) ng/mL 09/07/18 09/07/18 Range/Units 06:44 11:55 WBC (3.8-10.6) k/uL MCV (80.0-100.0) fL Neutrophils # (1.3-7.7) k/uL Potassium (3.5-5.1) mmol/L Chloride 89 L (98-107) mmol/L Carbon Dioxide 43 H* (22-30) mmol/L BUN 67 H (7-17) mg/dL Creatinine 1.34 H (0.52-1.04) mg/dL Glucose 213 H (74-99) mg/dL POC Glucose (mg/dL) 180 H (75-99) mg/dL Troponin I (0.000-0.034) ng/mL Assessment and Plan Assessment: Assessment #1. Acute on chronic hypoxemic respiratory failure related to acute exacerbation of congestive heart failure with systolic dysfunction #2. Left-sided chest wall pain exacerbated by movement, outpatient and coughing, suspect basilar pneumonia. #3. Elevated troponins of 0.056, 0.048, 0.048, and EKG was sinus bradycardia with first-degree AV block, with T-wave inversion in the lateral leads suggesting lateral ischemia #4. Elevated d-dimer, nonspecific, suspicion for pulmonary embolism is quite low especially in view of patient being on chronic anticoagulation. #5. Paroxysmal atrial fibrillation, on Eliquis #6. Valvular heart disease, is post aortic valve replacement in 2010 bioprosthetic valve at [facility], echocardiogram showed moderate regurgitation of the bioprosthetic aortic valve, moderate mitral regurgitation, and severe tricuspid regurgitation #7. Pulmonary hypertension with a right-sided pressures of 78 mmHg #8. Advanced COPD with chronic hypoxemic respiratory failure #9. Chronic congestive heart failure with systolic dysfunction #10. History of [place] filter insertion in 2010, for history of DVT #11. Hypertension, hyperlipidemia #12. Obstructive sleep apnea on CPAP therapy #13. Coronary artery disease #14. History of CVA/TIA with memory impairment #15. Gait dysfunction #16. Former smoker, quit smoking in 2009, on and off smoked for 50 years, a pack a day Plan: The patient was seen and evaluated by Dr. Betts. Chest x-ray and labs were reviewed. Suspect basilar pneumonia along with systolic congestive heart failure. Initiated on ceftriaxone and azithromycin. Decreased IV Lasix to 40 mg daily, we will continue to follow and make further recommendations based on his clinical status. I, the cosigning physician, performed a history & physical examination of the patient. Lungs sounds with coarse crackles in the bilateral posterior bases, few scattered rhonchi. Maintaining good O2 saturations in the 90s on 15 L high flow nasal cannula. I discussed the assessment and plan of care with my nurse practitioner, Melissa Feldman. I attest to the above note as dictated by her.
[2018-09-07 17:00] LABS: Glucose,Whole Blood 189 mg/dL (75-99)
[2018-09-07] MEDS: AZITHROMYCIN 500 MG in SODIUM CHLORIDE 0.9% 250 ML IVPB SCH (17:08)
[2018-09-07 20:33] LABS: Glucose,Whole Blood 171 mg/dL (75-99)
[2018-09-07] MEDS: traZODone HCL 50 MG TAB PO SCH (20:53)
[2018-09-07] MEDS: ALPRAZolam 0.5 MG TAB PO PRN (23:26)
[2018-09-08 06:01] LABS: Glucose,Whole Blood 123 mg/dL (75-99)
[2018-09-08] MEDS: ACETAMINOPHEN TAB 325 MG TAB PO PRN ×2 (07:06→20:14)
[2018-09-08] MEDS: metFORMIN 500 MG TAB PO SCH (07:06)
[2018-09-08 07:30] LABS: HCT 41.2 % (34.0-46.0); HGB 12.8 gm/dL (11.4-16.0); MCH 33.2 pg (25.0-35.0); MCHC 31.2 g/dL (31.0-37.0); MCV 106.7 fL (80.0-100.0); Macrocytosis Moderate; Mean Platelet Volume 8.4; Platelet Count 160 k/uL (150-450); RBC 3.86 m/uL (3.80-5.40); RDW 14.5 % (11.5-15.5); WBC 14.1 k/uL (3.8-10.6)
[2018-09-08 07:49] LABS: Calcium 9.3 mg/dL (8.4-10.2); Potassium 3.2 mmol/L (3.5-5.1)
[2018-09-08] MEDS: IPRATROPIUM-ALBUTEROL 3 ML NEB INHALATION SCH ×4 (07:57→19:33)
[2018-09-08] MEDS: ALLOPURINOL 100 MG TAB PO SCH (08:15)
[2018-09-08] MEDS: ATORVASTATIN 40 MG TAB PO SCH (08:15)
[2018-09-08] MEDS: ATENOLOL 25 MG TAB PO SCH ×2 (08:15→21:26)
[2018-09-08] MEDS: SPIRONOLACTONE 25 MG TAB PO SCH (08:16)
[2018-09-08] MEDS: NITROGLYCERIN OINT 1 INCH/GM PACKET TOPICAL SCH ×4 (08:16→22:19)
[2018-09-08] MEDS: APIXABAN 5 MG TAB PO SCH ×2 (08:16→21:25)
[2018-09-08] MEDS: INSULIN ASPART (NovoLOG) 100 UNIT/ML VIAL SQ SCH ×3 (08:16→21:27)
[2018-09-08] MEDS: INSULIN DETEMIR (LEVEMIR) 100 UNIT/ML SYR SQ SCH (08:54)
[2018-09-08] MEDS: FUROSEMIDE 10 MG/ML 4 ML VIAL IV SCH (10:52)
[2018-09-08 11:17] LABS: Glucose,Whole Blood 154 mg/dL (75-99)
[2018-09-08] MEDS: AZITHROMYCIN 500 MG in SODIUM CHLORIDE 0.9% 250 ML IVPB SCH (11:51)
--- NOTE | 2018-09-08 12:20 | P.PN ---
Subjective Resting in bed states some improvement. Patient has had consultation with cardiology and pulmonology. Suspected pneumonia basilar community acquired Objective - Vital Signs Vital signs: Vital Signs Temp 98.2 F 09/08/18 11:25 Pulse 60 09/08/18 12:12 Resp 18 09/08/18 11:25 BP 110/56 09/08/18 11:25 Pulse Ox 95 09/08/18 04:00 Intake & Output 09/07/18 09/08/18 09/08/18 18:59 06:59 18:59 Intake Total 1138 600 120 Output Total 300 900 Balance 838 -300 120 Weight 97.5 kg Intake: Oral 1138 600 120 Output: Urine 300 900 Other: Voiding Method Diaper Diaper # Voids 1 - Constitutional General appearance: Present: mild distress - EENT Eyes: Present: PERRLA Ears: bilateral: normal - Neck Neck: Present: normal ROM - Respiratory Respiratory: bilateral: diminished - Cardiovascular Rhythm: irregularly irregular Abnormal Heart Sounds: Present: systolic murmur - Gastrointestinal General gastrointestinal: Present: soft - Integumentary Integumentary: Present: normal - Neurologic Neurologic: Present: CNII-XII intact - Musculoskeletal Musculoskeletal: Present: generalized weakness - Psychiatric Psychiatric: Present: A&O x's 3, appropriate affect, intact judgment & insight - Labs CBC & Chem 7: 09/08/18 07:00 09/08/18 07:00 Labs: Abnormal Lab Results - Last 24 Hours (Table) 09/07/18 09/07/18 09/07/18 Range/Units 06:44 16:49 20:31 WBC (3.8-10.6) k/uL MCV (80.0-100.0) fL Potassium (3.5-5.1) mmol/L Chloride (98-107) mmol/L Carbon Dioxide (22-30) mmol/L BUN (7-17) mg/dL Creatinine (0.52-1.04) mg/dL Glucose (74-99) mg/dL POC Glucose (mg/dL) 189 H 171 H (75-99) mg/dL Procalcitonin 0.10 H (0.02-0.09) ng/mL 09/08/18 09/08/18 09/08/18 Range/Units 05:59 07:00 07:00 WBC 14.1 H (3.8-10.6) k/uL MCV 106.7 H (80.0-100.0) fL Potassium 3.2 L (3.5-5.1) mmol/L Chloride 92 L (98-107) mmol/L Carbon Dioxide 41 H* (22-30) mmol/L BUN 59 H (7-17) mg/dL Creatinine 1.14 H (0.52-1.04) mg/dL Glucose 126 H (74-99) mg/dL POC Glucose (mg/dL) 123 H (75-99) mg/dL Procalcitonin (0.02-0.09) ng/mL 09/08/18 Range/Units 11:13 WBC (3.8-10.6) k/uL MCV (80.0-100.0) fL Potassium (3.5-5.1) mmol/L Chloride (98-107) mmol/L Carbon Dioxide (22-30) mmol/L BUN (7-17) mg/dL Creatinine (0.52-1.04) mg/dL Glucose (74-99) mg/dL POC Glucose (mg/dL) 154 H (75-99) mg/dL Procalcitonin (0.02-0.09) ng/mL - Imaging and Cardiology Chest x-ray: report reviewed Assessment and Plan Plan: Assessment Acute exacerbation congestive heart failure systolic diastolic dysfunction ejection fraction 4045% cardiomyopathy severe pulmonary hypertension Respiratory failure acute on chronic hypoxic Pneumonia basilar acute acquired Atrial fibrillation Coronary disease with stents COPD acute on chronic exacerbation home oxygen History of CVA/TIA Diabetes type 2 History of DVT Hyperlipidemia Hypertension Sleep apnea BiPAP Aortic valve replacement Plan Continue consultation with cardiology and pulmonology
--- NOTE | 2018-09-08 14:57 | P.PN ---
Subjective Progress Note Date: 09/08/18 Principal diagnosis: Acute on chronic hypoxemic respiratory failure is related to acute exacerbation of congestive heart failure with systolic dysfunction This is a 67-year-old white female patient with history of chronic hypoxemic respiratory failure due to history of COPD, and chronic congestive heart failure, previous [place] [facility] history of atrial fibrillation on chronic anticoagulation in the form of Eliquis, previous history of smoking, patient carries over 50 years of smoking history, quit smoking in 2009, history of CVA with memory impairment. Patient resides with her daughter and her family, requires extensive supervision and assistance with her ADLs, she walks with a walker. On 09/06/2018 patient was brought to the emergency department evaluation of left- sided chest pain, there is a sharp stabbing pain on the left chest wall under the left breast wrapping around to the left posterior back, which is exacerbated by palpation, deep breathing coughing and moving. There is a question whether the patient had possibly injured herself at home, but she denies any history of falls, denies any injury to the chest wall. There is no bruising on the left chest wall, no obvious deformity. Patient denied any fever or chills. Denied any ringing in the lower extremities. Patient's family noted a low pulse oximetry readings at home, patient is on home oxygen at 4 L. She used to see Dr. Flores pulmonary [facility], and follows with Dr. IGNACIO Sousa history of congestive heart failure. No cough, no chest congestion, chest x-ray was completed showing prominent pulmonary vascularity with mild basilar opacities, related to congestive heart failure exacerbation, lab work showed white blood cell count of 14.7, hemoglobin of 14.2, d-dimer was mildly elevated at 1.0, sodium was 140, potassium is 3.1, chloride is 90, CO2 is 38, BUN 76, creatinine is 1.12. Patient had a bone elevation of 0.056, 0.048, 0.048. ProBNP was elevated at 5090. Pulse ox was 79% on 4 L, currently patient is on 15 L per high flow nasal cannula, her pulse ox in the 100%, BiPAP was ordered by attending physician, patient does have history of obstructive sleep apnea, she is on CPAP at home and according to her daughter is only at 3 cm of water. Potassium was 2.6, patient is on Zaroxolyn at home. Lung sounds reveal fine rales at the bases, diminished breath sounds. Patient has chronic lower extremity edema. Echocardiogram was completed, and showed the EF of 40-45%, moderate regurgitation of the bioprosthetic aortic valve with peak/mean gradient across the aortic valve of 68.5 mmHg/31.6 mmHg. Moderate mitral regurgitation, severe tricuspid regurgitation, severe pulmonary hypertension with right-sided pressures of 78 mmHg. VQ scan was completed and was nondiagnostic due to patient's inability to complete exam. Patient is seen today 09/07/2018 in follow-up on the selective care unit. She is currently awake and alert in no acute distress. Sitting comfortably in bed. Still quite dyspneic with minimal exertion. Still on 15 L high flow nasal cannula to maintain O2 saturations in the 90s. She's been afebrile. Rate controlled. Hemodynamically stable. White count 14.5. Hemoglobin 13.2. Bicarb 43. Creatinine 1.34. She remains on ceftriaxone and azithromycin, bronchodilators and IV diuretics. Chest x-ray continued to show evidence of congestive heart failure. On 09/08/2018 patient seen in follow-up on selective care unit, she is currently on 8 L of oxygen, we will turn it down to 6, and recheck her pulse ox, she did wear the BiPAP last night. She states her left-sided chest wall discomfort persists, but improved. Lung sounds reveal some crackles at bilateral bases, patient's diuresing, yesterday we cut back the dose of Lasix to 40 mg daily, patient is in negative fluid balance, his labs have been reviewed, white blood cell, is 14.1, hemoglobin is 12.8, sodium is 141, potassium is 3.2, chloride is 92, CO2 21, BUN is 59, creatinine is 1.14. Objective - Vital Signs Vital signs: Vital Signs Temp 98.2 F 09/08/18 11:25 Pulse 64 09/08/18 12:24 Resp 18 09/08/18 12:00 BP 110/56 09/08/18 11:25 Pulse Ox 95 09/08/18 04:00 Intake & Output 09/07/18 09/08/18 09/08/18 18:59 06:59 18:59 Intake Total 1138 600 240 Output Total 300 900 Balance 838 -300 240 Weight 97.5 kg Intake: Oral 1138 600 240 Output: Urine 300 900 Other: Voiding Method Diaper Diaper # Voids 1 1 - Exam GENERAL EXAM: Alert, pleasant, 67-year-old white female, on 8 L per high flow nasal cannula, comfortable in no apparent distress. She is reluctant to take deep breaths and cough, and move in bed related to left-sided chest wall pain wi th movement HEAD: Normocephalic/atraumatic. EYES: Normal reaction of pupils, equal size. Conjunctiva pink, sclera white. NOSE: Clear with pink turbinates. THROAT: No erythema or exudates. NECK: No masses, no JVD, no thyroid enlargement, no adenopathy. CHEST: No chest wall deformity. Symmetrical expansion. LUNGS: Equal air entry with basilar crackles CVS: Regular rate and rhythm, normal S1 and S2, no gallops, no murmurs, no rubs ABDOMEN: Soft, nontender. No hepatosplenomegaly, normal bowel sounds, no guarding or rigidity. EXTREMITIES: No clubbing, 1+ lower extremity edema, no cyanosis, 2+ pulses and upper and lower extremities. MUSCULOSKELETAL: Muscle strength and tone normal. SPINE: No scoliosis or deformity SKIN: No rashes CENTRAL NERVOUS SYSTEM: Alert and oriented -3. No focal deficits, tone is normal in all 4 extremities. PSYCHIATRIC: Alert and oriented -3. Appropriate affect. Intact judgment and insight. - Labs CBC & Chem 7: 09/08/18 07:00 09/08/18 07:00 Labs: Abnormal Lab Results - Last 24 Hours (Table) 09/07/18 09/07/18 09/07/18 Range/Units 06:44 16:49 20:31 WBC (3.8-10.6) k/uL MCV (80.0-100.0) fL Potassium (3.5-5.1) mmol/L Chloride (98-107) mmol/L Carbon Dioxide (22-30) mmol/L BUN (7-17) mg/dL Creatinine (0.52-1.04) mg/dL Glucose (74-99) mg/dL POC Glucose (mg/dL) 189 H 171 H (75-99) mg/dL Procalcitonin 0.10 H (0.02-0.09) ng/mL 09/08/18 09/08/1809/08/19 Range/Units 05:59 07:00 07:00 WBC 14.1 H (3.8-10.6) k/uL MCV 106.7 H (80.0-100.0) fL Potassium 3.2 L (3.5-5.1) mmol/L Chloride 92 L (98-107) mmol/L Carbon Dioxide 41 H* (22-30) mmol/L BUN 59 H (7-17) mg/dL Creatinine 1.14 H (0.52-1.04) mg/dL Glucose 126 H (74-99) mg/dL POC Glucose (mg/dL) 123 H (75-99) mg/dL Procalcitonin (0.02-0.09) ng/mL 09/08/18 Range/Units 11:13 WBC (3.8-10.6) k/uL MCV (80.0-100.0) fL Potassium (3.5-5.1) mmol/L Chloride (98-107) mmol/L Carbon Dioxide (22-30) mmol/L BUN (7-17) mg/dL Creatinine (0.52-1.04) mg/dL Glucose (74-99) mg/dL POC Glucose (mg/dL) 154 H (75-99) mg/dL Procalcitonin (0.02-0.09) ng/mL Assessment and Plan Plan: Assessment #1. Acute on chronic hypoxemic respiratory failure related to acute exacerbation of congestive heart failure with systolic dysfunction #2. Left-sided chest wall pain exacerbated by movement, outpatient and coughing #3. Elevated troponins of 0.056, 0.048, 0.048, and EKG was sinus bradycardia with first-degree AV block, with T-wave inversion in the lateral leads suggesting lateral ischemia #4. Elevated d-dimer, nonspecific, suspicion for pulmonary embolism is quite low especially in view of patient being on chronic anticoagulation. #5. Paroxysmal atrial fibrillation, on Eliquis #6. Valvular heart disease, is post aortic valve replacement in 2010 bioprosthetic valve at [facility], echocardiogram showed moderate regurgitation of the bioprosthetic aortic valve, moderate mitral regurgitation, and severe tricuspid regurgitation #7. Pulmonary hypertension with a right-sided pressures of 78 mmHg #8. Advanced COPD with chronic hypoxemic respiratory failure #9. Chronic congestive heart failure with systolic dysfunction #10. History of [place] filter insertion in 2010, for history of DVT #11. Hypertension, hyperlipidemia #12. Obstructive sleep apnea on CPAP therapy #13. Coronary artery disease #14. History of CVA/TIA with memory impairment #15. Gait dysfunction #16. Former smoker, quit smoking in 2009, on and off smoked for 50 years, a pack a day Plan: Continue with current medical treatment, continue with the current dose of IV Lasix, patient is in negative fluid balance, wean FiO2, BiPAP support at night. Senna chest wall pain is apparently chronic in nature, is not any worse than usual, hemodynamic patient remains stable, today's labs have been reviewed. Increase activity as tolerated, encourage patient to sit up in the chair. Pro- calcitonin was low,suggesting absence of infectious process. We'll continue to follow I performed a history & physical examination of the patient and discussed their management with my nurse practitioner, Susan Burton. I reviewed the nurse practitioner's note and agree with the documented findings and plan of care. Lung sounds are positive for coarse rales. The findings and the impression was discussed with the patient. I attest to the documentation by the nurse practitioner. Time with Patient: Less than 30
[2018-09-08 15:27] VITALS: BMI 40.6
[2018-09-08 16:29] LABS: Glucose,Whole Blood 250 mg/dL (75-99)
[2018-09-08 20:47] LABS: Glucose,Whole Blood 175 mg/dL (75-99)
[2018-09-08] MEDS: traZODone HCL 50 MG TAB PO SCH (21:13)
[2018-09-08] MEDS: ALPRAZolam 0.5 MG TAB PO PRN (21:28)
[2018-09-09] MEDS: ACETAMINOPHEN TAB 325 MG TAB PO PRN (04:26)
[2018-09-09 06:29] LABS: Glucose,Whole Blood 158 mg/dL (75-99)
[2018-09-09] MEDS: metFORMIN 500 MG TAB PO SCH (06:40)
[2018-09-09] MEDS: ALLOPURINOL 100 MG TAB PO SCH (08:47)
[2018-09-09] MEDS: FUROSEMIDE 10 MG/ML 4 ML VIAL IV SCH (08:47)
[2018-09-09] MEDS: AZITHROMYCIN 500 MG TAB PO SCH (08:47)
[2018-09-09] MEDS: APIXABAN 5 MG TAB PO SCH ×2 (08:47→22:19)
[2018-09-09] MEDS: SPIRONOLACTONE 25 MG TAB PO SCH (08:47)
[2018-09-09] MEDS: ATENOLOL 25 MG TAB PO SCH ×2 (08:47→22:19)
[2018-09-09] MEDS: ATORVASTATIN 40 MG TAB PO SCH (08:47)
[2018-09-09] MEDS: INSULIN ASPART (NovoLOG) 100 UNIT/ML VIAL SQ SCH ×4 (08:50→22:20)
[2018-09-09] MEDS: INSULIN DETEMIR (LEVEMIR) 100 UNIT/ML SYR SQ SCH (08:50)
[2018-09-09] MEDS: NITROGLYCERIN OINT 1 INCH/GM PACKET TOPICAL SCH ×4 (08:50→21:45)
[2018-09-09] MEDS: IPRATROPIUM-ALBUTEROL 3 ML NEB INHALATION SCH ×4 (09:04→19:53)
[2018-09-09 11:28] LABS: Glucose,Whole Blood 132 mg/dL (75-99)
--- NOTE | 2018-09-09 13:35 | P.PN ---
Subjective Progress Note Date: 09/09/18 Principal diagnosis: Acute on chronic hypoxemic respiratory failure related to acute exacerbation of congestive heart failure with systolic dysfunction. This is a 67-year-old white female patient with history of chronic hypoxemic respiratory failure due to history of COPD, and chronic congestive heart failure, previous history of aortic valve replacement bioprosthetic valve in 2009 at [facility], history of atrial fibrillation on chronic anticoagulation in the form of Eliquis, previous history of smoking, patient carries over 50 years of smoking history, quit smoking in 2009, history of CVA with memory impairment. Patient resides with her daughter and her family, requires extensive supervision and assistance with her ADLs, she walks with a walker. On 09/06/2018 patient was brought to the emergency department evaluation of left- sided chest pain, there is a sharp stabbing pain on the left chest wall under the left breast wrapping around to the left posterior back, which is exacerbated by palpation, deep breathing coughing and moving. There is a question whether the patient had possibly injured herself at home, but she denies any history of falls, denies any injury to the chest wall. There is no bruising on the left chest wall, no obvious deformity. Patient denied any fever or chills. Denied any ringing in the lower extremities. Patient's family noted a low pulse oximetry readings at home, patient is on home oxygen at 4 L. She used to see Dr. Flores pulmonary clinic, and follows with Dr. IGNACIO Sousa history of congestive heart failure. No cough, no chest congestion, chest x-ray was completed showing prominent pulmonary vascularity with mild basilar opacities, related to congestive heart failure exacerbation, lab work showed white blood cell count of 14.7, hemoglobin of 14.2, d-dimer was mildly elevated at 1.0, sodium was 140, potassium is 3.1, chloride is 90, CO2 is 38, BUN 76, creatinine is 1.12. Patient had a bone elevation of 0.056, 0.048, 0.048. ProBNP was elevated at 5090. Pulse ox was 79% on 4 L, currently patient is on 15 L per high flow nasal cannula, her pulse ox in the 100%, BiPAP was ordered by attending physician, patient does have history of obstructive sleep apnea, she is on CPAP at home and according to her daughter is only at 3 cm of water. Potassium was 2.6, patient is on Zaroxolyn at home. Lung sounds reveal fine rales at the bases, diminished breath sounds. Patient has chronic lower extremity edema. Echocardiogram was completed, and showed the EF of 40-45%, moderate regurgitation of the bioprosthetic aortic valve with peak/mean gradient across the aortic valve of 68.5 mmHg/31.6 mmHg. Moderate mitral regurgitation, severe tricuspid regurgitation, severe pulmonary hypertension with right-sided pressures of 78 mmHg. VQ scan was completed and was nondiagnostic due to patient's inability to complete exam. Patient is seen today 09/07/2018 in follow-up on the selective care unit. She is currently awake and alert in no acute distress. Sitting comfortably in bed. Still quite dyspneic with minimal exertion. Still on 15 L high flow nasal cannula to maintain O2 saturations in the 90s. She's been afebrile. Rate controlled. Hemodynamically stable. White count 14.5. Hemoglobin 13.2. Bicarb 43. Creatinine 1.34. She remains on ceftriaxone and azithromycin, bronchodilators and IV diuretics. Chest x-ray continued to show evidence of congestive heart failure. On 09/08/2018 patient seen in follow-up on selective care unit, she is currently on 8 L of oxygen, we will turn it down to 6, and recheck her pulse ox, she did wear the BiPAP last night. She states her left-sided chest wall discomfort persists, but improved. Lung sounds reveal some crackles at bilateral bases, patient's diuresing, yesterday we cut back the dose of Lasix to 40 mg daily, patient is in negative fluid balance, his labs have been reviewed, white blood cell, is 14.1, hemoglobin is 12.8, sodium is 141, potassium is 3.2, chloride is 92, CO2 21, BUN is 59, creatinine is 1.14. The patient was seen today 09/09/2017 in follow-up on the selective care unit. She is awake and alert in no acute distress. She is currently sitting up in a chair at the bedside. She is doing quite a bit better today as compared to . She is maintaining O2 saturations in the 90s on 6 L/m per nasal cannula. She's afebrile. Hemodynamically stable. She is continued on DuoNeb inhalations, ceftriaxone and azithromycin. She remains on Lasix 40 mg IV daily. Objective - Vital Signs Vital signs: Vital Signs Temp 97.6 F 09/09/18 11:39 Pulse 64 09/09/18 11:39 Resp 20 09/09/18 11:39 BP 109/67 09/09/18 11:39 Pulse Ox 93 L 09/09/18 11:39 Intake & Output 09/08/18 09/09/18 09/09/18 18:59 06:59 18:59 Intake Total 480 200 180 Output Total 850 400 Balance -370 -200 180 Weight 97.5 kg 76.4 kg Intake: Oral 480 200 180 Output: Urine 850 400 Other: Voiding Method Diaper Diaper Diaper # Voids 1 - Exam GENERAL EXAM: Alert, pleasant, 67-year-old white female, on 6 L per high flow nasal cannula, with a pulse ox of 93%, comfortable in no apparent distress. HEAD: Normocephalic/atraumatic. EYES: Normal reaction of pupils, equal size. Conjunctiva pink, sclera white. NOSE: Clear with pink turbinates. THROAT: No erythema or exudates. NECK: No masses, no JVD, no thyroid enlargement, no adenopathy. CHEST: No chest wall deformity. Symmetrical expansion. LUNGS: Equal air entry with diffuse breath sounds, and basilar crackles CVS: Regular rate and rhythm, normal S1 and S2, no gallops, no murmurs, no rubs ABDOMEN: Soft, nontender. No hepatosplenomegaly, normal bowel sounds, no guarding or rigidity. EXTREMITIES: No clubbing, 1+ lower extremity edema, no cyanosis, 2+ pulses and upper and lower extremities. MUSCULOSKELETAL: Muscle strength and tone normal. SPINE: No scoliosis or deformity SKIN: No rashes CENTRAL NERVOUS SYSTEM:No focal deficits, tone is normal in all 4 extremities. PSYCHIATRIC: Alert and oriented -3. Appropriate affect. Intact judgment and insight. - Labs CBC & Chem 7: 09/08/18 07:00 09/08/18 07:00 Labs: Abnormal Lab Results - Last 24 Hours (Table) 09/08/18 09/08/18 09/09/18 Range/Units 16:14 20:46 06:10 POC Glucose (mg/dL) 250 H 175 H 158 H (75-99) mg/dL 09/09/18 Range/Units 11:26 POC Glucose (mg/dL) 132 H (75-99) mg/dL Assessment and Plan Assessment: Assessment #1. Acute on chronic hypoxemic respiratory failure related to acute exacerbation of congestive heart failure with systolic dysfunction improving and currently on 6 L high flow nasal cannula. #2. Left-sided chest wall pain exacerbated by movement, outpatient and coughing, suspect basilar pneumonia. #3. Elevated troponins of 0.056, 0.048, 0.048, and EKG was sinus bradycardia with first-degree AV block, with T-wave inversion in the lateral leads suggesting lateral ischemia #4. Elevated d-dimer, nonspecific, suspicion for pulmonary embolism is quite low especially in view of patient being on chronic anticoagulation. #5. Paroxysmal atrial fibrillation, on Eliquis #6. Valvular heart disease, is post aortic valve replacement in 2010 bioprosthetic valve at [facility], echocardiogram showed moderate regurgitation of the bioprosthetic aortic valve, moderate mitral regurgitation, and severe tricuspid regurgitation #7. Pulmonary hypertension with a right-sided pressures of 78 mmHg #8. Advanced COPD with chronic hypoxemic respiratory failure #9. Chronic congestive heart failure with systolic dysfunction #10. History of [place] filter insertion in 2009, for history of DVT #11. Hypertension, hyperlipidemia #12. Obstructive sleep apnea on CPAP therapy #13. Coronary artery disease #14. History of CVA/TIA with memory impairment #15. Gait dysfunction #16. Former smoker, quit smoking in 2009, on and off smoked for 50 years, a pack a day Plan: The patient was seen and evaluated by Dr. Betts. The patient is improved and down to 6 L high flow nasal cannula. We'll continue the current treatment plan. We will increase her activity as tolerated. We'll continue to follow and make further recommendations based on her clinical status. I, the cosigning physician, performed a history & physical examination of the patient. Lungs sounds with coarse crackles in the bilateral posterior bases, few scattered rhonchi. Maintaining good O2 saturations in the 90s on 6 L high flow nasal cannula. I discussed the assessment and plan of care with my nurse practitioner, Melissa Feldman. I attest to the above note as dictated by her.
[2018-09-09 17:11] LABS: Glucose,Whole Blood 154 mg/dL (75-99)
[2018-09-09 21:00] LABS: Glucose,Whole Blood 232 mg/dL (75-99)
--- NOTE | 2018-09-09 21:35 | PN ---
PROGRESS NOTE I am covering for Dr. Sina Mitchell. DATE OF SERVICE: 09/09/2018 This 67-year-old woman who was admitted with CHF exacerbation, acute on chronic diastolic dysfunction 40-45 percent, also complaining of acute on chronic systolic dysfunction ejection fraction of 40-45%. Also complaining of bilateral leg edema and leg swelling and some warmth also. The patient on IV diuretics. Patient also seen by Cardiology and Pulmonology. Patient being closely monitored at this time. PAST MEDICAL HISTORY: Reviewed. REVIEW OF SYSTEMS: Cardio system: No angina or palpitations. RESPIRATORY: As mentioned earlier. GI: As mentioned earlier. : No numbness or weakness. MUSCULOSKELETAL: As mentioned earlier. NERVOUS SYSTEM: No numbness or weakness. DERMATOLOGY: As mentioned earlier. CURRENT MEDICATIONS: Reviewed and include: 1. Tylenol 650 p.o. 2. DuoNeb p.o. q.i.d. p.r.n. 3. Zyloprim 100 mg. 4. Xanax 0.5 daily. 5. Eliquis 5 mg p.o. b.i.d. 6. Tenormin 25 mg. 7. Lipitor 40 mg. 8. Zithromax 500 mg. 9. Rocephin daily. 10.Lasix 40 mg IV. 11.NovoLog insulin. 12.Levemir. 13.Glucophage. 14.Nitro-Bid ointment. 15.Zofran. 16.Aldactone. PHYSICAL EXAM: Patient is alert, oriented x3. Pulse is 68, blood pressure 127/64. Respirations 20. Temperature 98.1, pulse ox 94% on 6 L. HEENT: Conjunctivae normal. Oral mucosa moist. Neck is jugular venous distention at the root of the neck. Cardiovascular: S1-S2. Ejection systolic murmur. No S3, no S4. RESPIRATORY: Breath sounds diminished in the bases. Bilateral scattered rhonchi and basilar crackles. ABDOMEN: Soft, obese, nontender. No mass palpable. LEGS: Bilateral leg edema. Erythema present. Otherwise pulses diminished bilaterally. Nervous system: Higher functions as mentioned earlier. Moves all 4 limbs. No focal deficits. Lymphatics: No lymph nodes palpable in the neck, axillae or groin. Skin: As mentioned earlier. JOINTS: No active deforming arthropathy. LABS: Accu-Cheks 130-154. WBC 14.1. Sodium 142, potassium 3.2. Creatinine is 1.1. ASSESSMENT: 1. Congestive heart failure acute exacerbation with acute on chronic systolic dysfunction, ejection fraction 40-45 percent. 2. Cardiomyopathy, history of pulmonary hypertension. 3. Acute respiratory failure acute on chronic hypoxic respiratory failure. 4. Bibasilar pneumonia, acute possibly gram-negative. 5. Atrial fibrillation, recurrent paroxysmal. 6. Coronary artery disease/stent history. 7. Chronic obstructive pulmonary disease acute exacerbation on home O2. 8. Chronic obstructive pulmonary disease acute exacerbation acute on chronic exacerbation with acute on chronic hypoxic respiratory failure. 9. History of cerebrovascular accident, transient ischemic attack. 10.Diabetes mellitus type 2. 11.History of deep vein thrombosis. 12.Hyperlipidemia. 13.Hypertension. 14.Sleep apnea on BiPAP. 15.History of aortic valve replacement. RECOMMENDATIONS AND DISCUSSION: Recommend to continue current medications, continue monitoring, management. Symptomatic treatment. Otherwise, at this time, I recommend to continue the diuretics. Monitor creatinine closely. Otherwise, there is no evidence of infection at this time. White count is still elevated. We will continue to monitor. I would also continue with empiric antibiotics and further recommendations to follow. Guarded prognosis. See orders for details. DVT prophylaxis. Further recommendations to follow. MMODL / IJN: [id number] / MTDD
[2018-09-09] MEDS: traZODone HCL 50 MG TAB PO SCH (21:41)
[2018-09-09] MEDS: OXYBUTYNIN CHLORIDE 5 MG TAB PO SCH (22:19)
[2018-09-09] MEDS: CLOTRIMAZOLE TROCHE 10 MG TROCHE MUCOUS MEM SCH ×2 (22:19→23:43)
[2018-09-09] MEDS: ALPRAZolam 0.5 MG TAB PO PRN (22:49)
[2018-09-10 06:24] LABS: Glucose,Whole Blood 158 mg/dL (75-99)
[2018-09-10] MEDS: INSULIN ASPART (NovoLOG) 100 UNIT/ML VIAL SQ SCH ×7 (06:49→21:25)
[2018-09-10] MEDS: metFORMIN 500 MG TAB PO SCH (06:49)
[2018-09-10] MEDS: CLOTRIMAZOLE TROCHE 10 MG TROCHE MUCOUS MEM SCH ×5 (06:49→23:00)
[2018-09-10 07:12] LABS: Basophils # (A) 0.1 k/uL (0-0.2); Basophils % (A) 0 %; Eosinophils # (A) 0.6 k/uL (0-0.7); Eosinophils % (A) 4 %; HCT 41.6 % (34.0-46.0); HGB 13.1 gm/dL (11.4-16.0); Lymphocytes # (A) 1.7 k/uL (1.0-4.8); Lymphocytes % (A) 12 %; MCH 32.9 pg (25.0-35.0); MCHC 31.4 g/dL (31.0-37.0); Macrocytosis Moderate; Monocytes # (A) 0.8 k/uL (0-1.0); Monocytes % (A) 6 %; Neutrophils # (A) 11.4 k/uL (1.3-7.7); Neutrophils % (A) 77 %; Platelet Count 150 k/uL (150-450); RBC 3.96 m/uL (3.80-5.40); RDW 14.5 % (11.5-15.5); WBC 14.8 k/uL (3.8-10.6)
[2018-09-10 07:27] LABS: Calcium 9.2 mg/dL (8.4-10.2)
[2018-09-10] MEDS: IPRATROPIUM-ALBUTEROL 3 ML NEB INHALATION SCH ×4 (07:38→19:42)
[2018-09-10] MEDS: MAGNESIUM OXIDE 400 MG TAB PO SCH (08:20)
[2018-09-10] MEDS: ALLOPURINOL 100 MG TAB PO SCH (08:20)
[2018-09-10] MEDS: DONEPEZIL 10 MG TAB PO SCH (08:20)
[2018-09-10] MEDS: OXYBUTYNIN CHLORIDE 5 MG TAB PO SCH ×2 (08:20→21:25)
[2018-09-10] MEDS: APIXABAN 5 MG TAB PO SCH ×2 (08:20→21:24)
[2018-09-10] MEDS: FERROUS SULFATE 325 MG TAB PO SCH (08:20)
[2018-09-10] MEDS: ATENOLOL 25 MG TAB PO SCH ×2 (08:20→21:24)
[2018-09-10] MEDS: ACETAMINOPHEN TAB 325 MG TAB PO PRN ×3 (08:20→21:23)
[2018-09-10] MEDS: SPIRONOLACTONE 25 MG TAB PO SCH (08:20)
[2018-09-10] MEDS: AZITHROMYCIN 500 MG TAB PO SCH (08:20)
[2018-09-10] MEDS: FUROSEMIDE 10 MG/ML 4 ML VIAL IV SCH (08:20)
[2018-09-10] MEDS: NITROGLYCERIN OINT 1 INCH/GM PACKET TOPICAL SCH ×4 (08:21→21:27)
[2018-09-10] MEDS: ATORVASTATIN 40 MG TAB PO SCH (08:21)
[2018-09-10] MEDS: INSULIN DETEMIR (LEVEMIR) 100 UNIT/ML SYR SQ SCH (08:33)
[2018-09-10] MEDS: POTASSIUM CHLORIDE ER 20 MEQ TAB.ER PO SCH ×7 (10:08→22:55)
[2018-09-10 11:07] LABS: Glucose,Whole Blood 256 mg/dL (75-99)
--- NOTE | 2018-09-10 14:15 | P.PN ---
Subjective Progress Note Date: 09/10/18 Principal diagnosis: Acute on chronic hypoxemic respiratory failure related to acute exacerbation of congestive heart failure with systolic dysfunction. This is a 67-year-old white female patient with history of chronic hypoxemic respiratory failure due to history of COPD, and chronic congestive heart failure, previous history of aortic valve replacement bioprosthetic valve in 2009 at [facility], history of atrial fibrillation on chronic anticoagulation in the form of Eliquis, previous history of smoking, patient carries over 50 years of smoking history, quit smoking in 2009, history of CVA with memory impairment. Patient resides with her daughter and her family, requires extensive supervision and assistance with her ADLs, she walks with a walker. On 09/06/2018 patient was brought to the emergency department evaluation of left- sided chest pain, there is a sharp stabbing pain on the left chest wall under the left breast wrapping around to the left posterior back, which is exacerbated by palpation, deep breathing coughing and moving. There is a question whether the patient had possibly injured herself at home, but she denies any history of falls, denies any injury to the chest wall. There is no bruising on the left chest wall, no obvious deformity. Patient denied any fever or chills. Denied any ringing in the lower extremities. Patient's family noted a low pulse oximetry readings at home, patient is on home oxygen at 4 L. She used to see Dr. Flores pulmonary clinic, and follows with Dr. IGNACIO Sousa history of congestive heart failure. No cough, no chest congestion, chest x-ray was completed showing prominent pulmonary vascularity with mild basilar opacities, related to congestive heart failure exacerbation, lab work showed white blood cell count of 14.7, hemoglobin of 14.2, d-dimer was mildly elevated at 1.0, sodium was 140, potassium is 3.1, chloride is 90, CO2 is 38, BUN 76, creatinine is 1.12. Patient had a bone elevation of 0.056, 0.048, 0.048. ProBNP was elevated at 5090. Pulse ox was 79% on 4 L, currently patient is on 15 L per high flow nasal cannula, her pulse ox in the 100%, BiPAP was ordered by attending physician, patient does have history of obstructive sleep apnea, she is on CPAP at home and according to her daughter is only at 3 cm of water. Potassium was 2.6, patient is on Zaroxolyn at home. Lung sounds reveal fine rales at the bases, diminished breath sounds. Patient has chronic lower extremity edema. Echocardiogram was completed, and showed the EF of 40-45%, moderate regurgitation of the bioprosthetic aortic valve with peak/mean gradient across the aortic valve of 68.5 mmHg/31.6 mmHg. Moderate mitral regurgitation, severe tricuspid regurgitation, severe pulmonary hypertension with right-sided pressures of 78 mmHg. VQ scan was completed and was nondiagnostic due to patient's inability to complete exam. Patient is seen today 09/07/2018 in follow-up on the selective care unit. She is currently awake and alert in no acute distress. Sitting comfortably in bed. Still quite dyspneic with minimal exertion. Still on 15 L high flow nasal cannula to maintain O2 saturations in the 90s. She's been afebrile. Rate controlled. Hemodynamically stable. White count 14.5. Hemoglobin 13.2. Bicarb 43. Creatinine 1.34. She remains on ceftriaxone and azithromycin, bronchodilators and IV diuretics. Chest x-ray continued to show evidence of congestive heart failure. On 09/08/2018 patient seen in follow-up on selective care unit, she is currently on 8 L of oxygen, we will turn it down to 6, and recheck her pulse ox, she did wear the BiPAP last night. She states her left-sided chest wall discomfort persists, but improved. Lung sounds reveal some crackles at bilateral bases, patient's diuresing, yesterday we cut back the dose of Lasix to 40 mg daily, patient is in negative fluid balance, his labs have been reviewed, white blood cell, is 14.1, hemoglobin is 12.8, sodium is 141, potassium is 3.2, chloride is 92, CO2 21, BUN is 59, creatinine is 1.14. The patient was seen today 09/09/2018 in follow-up on the selective care unit. She is awake and alert in no acute distress. She is currently sitting up in a chair at the bedside. She is doing quite a bit better today as compared to . She is maintaining O2 saturations in the 90s on 6 L/m per nasal cannula. She's afebrile. Hemodynamically stable. She is continued on DuoNeb inhalations, ceftriaxone and azithromycin. She remains on Lasix 40 mg IV daily. The patient is seen today 09/10/2018 in follow-up on the selective care unit. She is currently sitting up in a chair at the bedside. Awake and alert in no acute distress. She is breathing easier today as compared to yesterday. Currently down to 4 liters per minute per nasal cannula maintaining good O2 saturations in the 90s. White count 14.8. Hemoglobin 13.1. Bicarb 41. Creatinine 0.87. He is continued on IV diuretics. We'll continue DuoNeb inhalations, ceftriaxone and azithromycin. Objective - Vital Signs Vital signs: Vital Signs Temp 97.9 F 09/10/18 08:00 Pulse 63 09/10/18 12:00 Resp 22 09/10/18 12:00 BP 113/55 09/10/18 12:00 Pulse Ox 94 L 09/10/18 12:00 Intake & Output 09/09/18 09/10/18 09/10/18 18:59 06:59 18:59 Intake Total 660 240 0 Output Total 900 Balance -240 240 0 Weight 94.6 kg Intake: Oral 660 240 0 Output: Urine 900 Other: Voiding Method Diaper Diaper # Voids 1 - Exam GENERAL EXAM: Alert, pleasant, 67-year-old white female, on 6 L per high flow nasal cannula, with a pulse ox of 93%, comfortable in no apparent distress. HEAD: Normocephalic/atraumatic. EYES: Normal reaction of pupils, equal size. Conjunctiva pink, sclera white. NOSE: Clear with pink turbinates. THROAT: No erythema or exudates. NECK: No masses, no JVD, no thyroid enlargement, no adenopathy. CHEST: No chest wall deformity. Symmetrical expansion. LUNGS: Equal air entry with diffuse breath sounds, and basilar crackles CVS: Regular rate and rhythm, normal S1 and S2, no gallops, no murmurs, no rubs ABDOMEN: Soft, nontender. No hepatosplenomegaly, normal bowel sounds, no gu arding or rigidity. EXTREMITIES: No clubbing, 1+ lower extremity edema, no cyanosis, 2+ pulses and u pper and lower extremities. MUSCULOSKELETAL: Muscle strength and tone normal. SPINE: No scoliosis or deformity SKIN: No rashes CENTRAL NERVOUS SYSTEM:No focal deficits, tone is normal in all 4 extremities. PSYCHIATRIC: Alert and oriented -3. Appropriate affect. Intact judgment and insight. - Labs CBC & Chem 7: 09/10/18 06:57 09/10/18 06:57 Labs: Abnormal Lab Results - Last 24 Hours (Table) 09/09/18 09/09/18 09/10/18 Range/Units 17:08 20:58 06:19 WBC (3.8-10.6) k/uL MCV (80.0-100.0) fL Neutrophils # (1.3-7.7) k/uL Potassium (3.5-5.1) mmol/L Chloride (98-107) mmol/L Carbon Dioxide (22-30) mmol/L BUN (7-17) mg/dL Glucose (74-99) mg/dL POC Glucose (mg/dL) 154 H 232 H 158 H (75-99) mg/dL 09/10/18 09/10/18 09/10/18 Range/Units 06:57 06:57 11:02 WBC 14.8 H (3.8-10.6) k/uL MCV 105.0 H (80.0-100.0) fL Neutrophils # 11.4 H (1.3-7.7) k/uL Potassium 3.0 L (3.5-5.1) mmol/L Chloride 91 L (98-107) mmol/L Carbon Dioxide 41 H* (22-30) mmol/L BUN 50 H (7-17) mg/dL Glucose 150 H (74-99) mg/dL POC Glucose (mg/dL) 256 H (75-99) mg/dL Assessment and Plan Assessment: Assessment #1. Acute on chronic hypoxemic respiratory failure related to acute exacerbation of congestive heart failure with systolic dysfunction improving and currently on 4 L high flow nasal cannula. #2. Left-sided chest wall pain exacerbated by movement, outpatient and coughing, suspect basilar pneumonia. #3. Elevated troponins of 0.056, 0.048, 0.048, and EKG was sinus bradycardia with first-degree AV block, with T-wave inversion in the lateral leads suggesting lateral ischemia #4. Elevated d-dimer, nonspecific, suspicion for pulmonary embolism is quite low especially in view of patient being on chronic anticoagulation. #5. Paroxysmal atrial fibrillation, on Eliquis #6. Valvular heart disease, is post aortic valve replacement in 2010 bioprosthetic valve at [facility], echocardiogram showed moderate regurgitation of the bioprosthetic aortic valve, moderate mitral regurgitation, and severe tricuspid regurgitation #7. Pulmonary hypertension with a right-sided pressures of 78 mmHg #8. Advanced COPD with chronic hypoxemic respiratory failure #9. Chronic congestive heart failure with systolic dysfunction #10. History of [place] filter insertion in 2009, for history of DVT #11. Hypertension, hyperlipidemia #12. Obstructive sleep apnea on CPAP therapy #13. Coronary artery disease #14. History of CVA/TIA with memory impairment #15. Gait dysfunction #16. Former smoker, quit smoking in 2009, on and off smoked for 50 years, a pack a day Plan: The patient was seen and evaluated by Dr. Betts. The patient is improved and down to 4 L high flow nasal cannula. We'll continue the current treatment plan including DuoNeb inhalations, ceftriaxone and azithromycin. We will increase her activity as tolerated. We'll continue to follow and make further recommendations based on her clinical status. I, the cosigning physician, performed a history & physical examination of the patient. Lungs sounds with coarse crackles in the bilateral posterior bases, few scattered rhonchi. Maintaining good O2 saturations in the 90s on 4 L high flow nasal cannula. I discussed the assessment and plan of care with my nurse practitioner, Melissa Feldman. I attest to the above note as dictated by her.
[2018-09-10 16:08] LABS: Glucose,Whole Blood 183 mg/dL (75-99)
--- NOTE | 2018-09-10 18:03 | PN ---
PROGRESS NOTE DATE OF SERVICE: 09/10/2018 This 67-year-old woman who was admitted with CHF acute exacerbation with acute on chronic systolic dysfunction, ejection fraction 40-45 percent. The patient is being closely monitored at this time. The patient's legs are feeling better according to her. No chest pain. No palpitations. No fever. EXAM: Alert and oriented times three. Pulse 74, blood pressure 130/52, respiration 18, temp is normal. Pulse ox 94% on 4 L. HEENT are conjunctivae normal. Neck: No jugular venous distention. RESPIRATION: Breath sounds diminished in the bases. A few scattered rhonchi and crackles. ABDOMEN: Soft. LEGS: Bilateral leg edema. CENTRAL NERVOUS SYSTEM: No focal deficits. LAB STUDIES: WBC 14.2. Sodium 140. Potassium 3. ASSESSMENT: 1. Congestive heart failure acute exacerbation with acute on chronic systolic dysfunction, ejection fraction 40-45 percent. 2. Cardiomyopathy. 3. History of pulmonary hypertension. 4. Hypokalemia. 5. Acute respiratory failure with acute on chronic hypoxic respiratory failure. 6. Bibasilar pneumonia possibly gram-negative. 7. Atrial fibrillation, recurrent paroxysmal. 8. Coronary artery disease, stent history. 9. Chronic obstructive pulmonary disease, acute exacerbation on home O2. 10.Chronic hypoxic respiratory failure. 11.History of cerebrovascular accident, transient ischemic attack. 12.Diabetes mellitus type 2. 13.History of deep vein thrombosis. 14.Hyperlipidemia. 15.Hypertension. 16.Sleep apnea on BiPAP. 17.History of aortic valve replacement. RECOMMENDATIONS AND DISCUSSION: Recommend to continue current medications, management and symptomatic treatment. Continue with continue diuretics. Patient is 40 mg IV daily. Also recommend potassium supplementation. Repeat lytes. Guarded prognosis because of multiple complex medical issues. Further recommendations to follow. MMODL / IJN: [id number] /
[2018-09-10 19:27] LABS: Potassium 3.5 mmol/L (3.5-5.1)
[2018-09-10] MEDS ORDERED: Potassium Replacement Protocol 1 EACH MISC MISCELLANE PRN (20:42)
[2018-09-10 21:02] LABS: Glucose,Whole Blood 229 mg/dL (75-99)
[2018-09-10] MEDS: ALPRAZolam 0.5 MG TAB PO PRN (21:25)
[2018-09-10] MEDS: traZODone HCL 50 MG TAB PO SCH (21:26)
[2018-09-11] MEDS: ACETAMINOPHEN TAB 325 MG TAB PO PRN ×2 (06:17→18:44)
[2018-09-11] MEDS: CLOTRIMAZOLE TROCHE 10 MG TROCHE MUCOUS MEM SCH ×5 (06:23→23:49)
[2018-09-11 06:38] LABS: Glucose,Whole Blood 170 mg/dL (75-99)
[2018-09-11 07:03] LABS: Calcium 9.1 mg/dL (8.4-10.2); Magnesium 1.9 mg/dL (1.6-2.3); Potassium 3.9 mmol/L (3.5-5.1)
[2018-09-11] MEDS: metFORMIN 500 MG TAB PO SCH (07:09)
[2018-09-11] MEDS: INSULIN ASPART (NovoLOG) 100 UNIT/ML VIAL SQ SCH ×7 (07:09→20:16)
[2018-09-11 07:13] LABS: Basophils # (A) 0.1 k/uL (0-0.2); Basophils % (A) 1 %; Eosinophils # (A) 0.5 k/uL (0-0.7); Eosinophils % (A) 4 %; HCT 40.7 % (34.0-46.0); HGB 13.4 gm/dL (11.4-16.0); Lymphocytes # (A) 1.8 k/uL (1.0-4.8); Lymphocytes % (A) 14 %; MCH 34.4 pg (25.0-35.0); MCV 104.2 fL (80.0-100.0); Macrocytosis Moderate; Mean Platelet Volume 8.4; Monocytes # (A) 0.6 k/uL (0-1.0); Monocytes % (A) 5 %; Neutrophils # (A) 9.9 k/uL (1.3-7.7); Neutrophils % (A) 76 %; Platelet Count 171 k/uL (150-450); RDW 15.6 % (11.5-15.5)
[2018-09-11] MEDS: IPRATROPIUM-ALBUTEROL 3 ML NEB INHALATION SCH ×4 (07:44→19:21)
[2018-09-11] MEDS: ALLOPURINOL 100 MG TAB PO SCH (08:22)
[2018-09-11] MEDS: FERROUS SULFATE 325 MG TAB PO SCH (08:22)
[2018-09-11] MEDS: ATORVASTATIN 40 MG TAB PO SCH (08:22)
[2018-09-11] MEDS: DONEPEZIL 10 MG TAB PO SCH (08:22)
[2018-09-11] MEDS: ATENOLOL 25 MG TAB PO SCH ×2 (08:22→20:15)
[2018-09-11] MEDS: SPIRONOLACTONE 25 MG TAB PO SCH (08:22)
[2018-09-11] MEDS: AZITHROMYCIN 500 MG TAB PO SCH (08:22)
[2018-09-11] MEDS: OXYBUTYNIN CHLORIDE 5 MG TAB PO SCH ×2 (08:22→20:15)
[2018-09-11] MEDS: POTASSIUM CHLORIDE ER 20 MEQ TAB.ER PO SCH ×2 (08:22→20:15)
[2018-09-11] MEDS: APIXABAN 5 MG TAB PO SCH ×2 (08:22→20:15)
[2018-09-11] MEDS: MAGNESIUM OXIDE 400 MG TAB PO SCH (08:22)
[2018-09-11] MEDS: FUROSEMIDE 10 MG/ML 4 ML VIAL IV SCH (08:23)
[2018-09-11] MEDS: NITROGLYCERIN OINT 1 INCH/GM PACKET TOPICAL SCH ×4 (09:06→22:29)
[2018-09-11] MEDS: INSULIN DETEMIR (LEVEMIR) 100 UNIT/ML SYR SQ SCH (09:28)
[2018-09-11 11:19] LABS: Glucose,Whole Blood 139 mg/dL (75-99)
--- NOTE | 2018-09-11 13:43 | P.PN ---
Subjective Progress Note Date: 09/11/18 This is a 67-year-old white female patient with history of chronic hypoxemic respiratory failure due to history of COPD, and chronic congestive heart failure, previous history of aortic valve replacement bioprosthetic valve in 2009 at [facility], history of atrial fibrillation on chronic anticoagulation in the form of Eliquis, previous history of smoking, patient carries over 50 years of smoking history, quit smoking in 2009, history of CVA with memory impairment. Patient resides with her daughter and her family, requires extensive supervision and assistance with her ADLs, she walks with a walker. On 09/06/2018 patient was brought to the emergency department evaluation of left- sided chest pain, there is a sharp stabbing pain on the left chest wall under the left breast wrapping around to the left posterior back, which is exacerbated by palpation, deep breathing coughing and moving. There is a question whether the patient had possibly injured herself at home, but she denies any history of falls, denies any injury to the chest wall. There is no bruising on the left chest wall, no obvious deformity. Patient denied any fever or chills. Denied any ringing in the lower extremities. Patient's family noted a low pulse oximetry readings at home, patient is on home oxygen at 4 L. She used to see Dr. [facility] pulmonary clinic, and follows with Dr. IGNACIO Sousa history of congestive heart failure. No cough, no chest congestion, chest x-ray was completed showing prominent pulmonary vascularity with mild basilar opacities, related to congestive heart failure exacerbation, lab work showed white blood cell count of 14.7, hemoglobin of 14.2, d-dimer was mildly elevated at 1.0, sodium was 140, potassium is 3.1, chloride is 90, CO2 is 38, BUN 76, creatinine is 1.12. Patient had a bone elevation of 0.056, 0.048, 0.048. ProBNP was elevated at 5090. Pulse ox was 79% on 4 L, currently patient is on 15 L per high flow nasal cannula, her pulse ox in the 100%, BiPAP was ordered by attending physician, patient does have history of obstructive sleep apnea, she is on CPAP at home and according to her daughter is only at 3 cm of water. Potassium was 2.6, patient is on Zaroxolyn at home. Lung sounds reveal fine rales at the bases, diminished breath sounds. Patient has chronic lower extremity edema. Echocardiogram was completed, and showed the EF of 40-45%, moderate regurgitation of the bioprosthetic aortic valve with peak/mean gradient across the aortic valve of 68.5 mmHg/31.6 mmHg. Moderate mitral regurgitation, severe tricuspid regurgitation, severe pulmonary hypertension with right-sided pressures of 78 mmHg. VQ scan was completed and was nondiagnostic due to patient's inability to complete exam. Patient is seen today 09/07/2018 in follow-up on the selective care unit. She is currently awake and alert in no acute distress. Sitting comfortably in bed. Still quite dyspneic with minimal exertion. Still on 15 L high flow nasal cannula to maintain O2 saturations in the 90s. She's been afebrile. Rate controlled. Hemodynamically stable. White count 14.5. Hemoglobin 13.2. Bicarb 43. Creatinine 1.34. She remains on ceftriaxone and azithromycin, bronchodilators and IV diuretics. Chest x-ray continued to show evidence of congestive heart failure. On 09/08/2018 patient seen in follow-up on selective care unit, she is currently on 8 L of oxygen, we will turn it down to 6, and recheck her pulse ox, she did wear the BiPAP last night. She states her left-sided chest wall discomfort persists, but improved. Lung sounds reveal some crackles at bilateral bases, patient's diuresing, yesterday we cut back the dose of Lasix to 40 mg daily, patient is in negative fluid balance, his labs have been reviewed, white blood cell, is 14.1, hemoglobin is 12.8, sodium is 141, potassium is 3.2, chloride is 92, CO2 21, BUN is 59, creatinine is 1.14. The patient was seen today 09/09/2018 in follow-up on the selective care unit. She is awake and alert in no acute distress. She is currently sitting up in a chair at the bedside. She is doing quite a bit better today as compared to yesterday. She is maintaining O2 saturations in the 90s on 6 L/m per nasal cannula. She's afebrile. Hemodynamically stable. She is continued on DuoNeb inhalations, ceftriaxone and azithromycin. She remains on Lasix 40 mg IV daily. The patient is seen today 09/10/2018 in follow-up on the selective care unit. She is currently sitting up in a chair at the bedside. Awake and alert in no acute distress. She is breathing easier today as compared to yesterday. Currently down to 4 liters per minute per nasal cannula maintaining good O2 saturations in the 90s. White count 14.8. Hemoglobin 13.1. Bicarb 41. Creatinine 0.87. He is continued on IV diuretics. We'll continue DuoNeb inhalations, ceftriaxone and azithromycin. On 09/11/2018 the patient is still on 5 L of oxygen nasal cannula. No significant respiratory distress. She thinks that she is back to her baseline. No fever. No chills. No nausea. No vomiting. No abdominal pain. She remains on DuoNeb nebulized treatment [id number]. She remains on a combination of Rocephin and Zithromax. She is on long-term anticoagulation with Eliquis. She is also on Lasix 40 mg IV push on a daily basis. The patient's BUN is at 43 with a creatinine of 0.9. The rest of the electrodes are all within normal limits. Objective - Vital Signs Vital signs: Vital Signs Temp 97.5 F L 09/11/18 11:56 Pulse 65 09/11/18 11:56 Resp 22 09/11/18 11:56 BP 112/55 09/11/18 11:56 Pulse Ox 98 09/11/18 11:56 Intake & Output 09/10/18 09/11/18 09/11/18 18:59 06:59 18:59 Intake Total 804 30 300 Output Total 300 Balance 804 -270 300 Weight 93.3 kg Intake: IV 30 10 Invasive Line 3 30 10 Intake, IV Titration 50 Amount cefTRIAXone 1 gm In 50 Sodium Chloride 0.9% 50 ml @ 100 mls/hr IVPB Q24HR [facility] Rx#:[id number] Oral 804 240 Output: Urine 300 Other: Voiding Method Toilet Diaper # Voids 3 1 3 - Exam GENERAL EXAM: Alert, pleasant, 67-year-old white female, on 5 L per high flow nasal cannula, with a pulse ox of 93%, comfortable in no apparent distress. HEAD: Normocephalic/atraumatic. EYES: Normal reaction of pupils, equal size. Conjunctiva pink, sclera white. NOSE: Clear with pink turbinates. THROAT: No erythema or exudates. NECK: No masses, no JVD, no thyroid enlargement, no adenopathy. CHEST: No chest wall deformity. Symmetrical expansion. LUNGS: Equal air entry with diffuse breath sounds, and basilar crackles CVS: Regular rate and rhythm, normal S1 and S2, no gallops, no murmurs, no rubs ABDOMEN: Soft, nontender. No hepatosplenomegaly, normal bowel sounds, no guard ing or rigidity. EXTREMITIES: No clubbing, 1+ lower extremity edema, no cyanosis, 2+ pulses and upper and lower extremities. MUSCULOSKELETAL: Muscle strength and tone normal. SPINE: No scoliosis or deformity SKIN: No rashes CENTRAL NERVOUS SYSTEM:No focal deficits, tone is normal in all 4 extremities. PSYCHIATRIC: Alert and oriented -3. Appropriate affect. Intact judgment and insight. - Labs CBC & Chem 7: 09/11/18 06:13 09/11/18 06:13 Labs: Abnormal Lab Results - Last 24 Hours (Table) 09/10/18 09/10/18 09/10/18 Range/Units 16:04 18:54 20:59 WBC (3.8-10.6) k/uL MCV (80.0-100.0) fL RDW (11.5-15.5) % Neutrophils # (1.3-7.7) k/uL Chloride 90 L (98-107) mmol/L Carbon Dioxide 42 H* (22-30) mmol/L BUN (7-17) mg/dL Glucose (74-99) mg/dL POC Glucose (mg/dL) 183 H 229 H (75-99) mg/dL 09/11/18 09/11/18 09/11/18 Range/Units 06:13 06:13 06:37 WBC 13.0 H (3.8-10.6) k/uL MCV 104.2 H (80.0-100.0) fL RDW 15.6 H (11.5-15.5) % Neutrophils # 9.9 H (1.3-7.7) k/uL Chloride 92 L (98-107) mmol/L Carbon Dioxide 42 H* (22-30) mmol/L BUN 43 H (7-17) mg/dL Glucose 167 H (74-99) mg/dL POC Glucose (mg/dL) 170 H (75-99) mg/dL 09/11/18 Range/Units 11:17 WBC (3.8-10.6) k/uL MCV (80.0-100.0) fL RDW (11.5-15.5) % Neutrophils # (1.3-7.7) k/uL Chloride (98-107) mmol/L Carbon Dioxide (22-30) mmol/L BUN (7-17) mg/dL Glucose (74-99) mg/dL POC Glucose (mg/dL) 139 H (75-99) mg/dL Assessment and Plan Plan: #1. Acute on chronic hypoxemic respiratory failure related to acute exacerbation of congestive heart failure with systolic dysfunction improving and currently on 4-5 L high flow nasal cannula. Noted the patient has chronic hypoxic respiratory failure. The acute component is improved in the patient's FiO2 has been weaned down to 4-5 L per minute nasal cannula. She diuresed adequately. Minimal crackles in lung bases. #2. Left-sided chest wall pain exacerbated by movement, outpatient and coughing, suspect basilar pneumonia. #3. Elevated troponins of 0.056, 0.048, 0.048, and EKG was sinus bradycardia with first-degree AV block, with T-wave inversion in the lateral leads suggestin g lateral ischemia #4. Elevated d-dimer, nonspecific, suspicion for pulmonary embolism is quite lo w especially in view of patient being on chronic anticoagulation. #5. Paroxysmal atrial fibrillation, on Eliquis #6. Valvular heart disease, is post aortic valve replacement in 2010 bioprosthetic valve at [facility], echocardiogram showed moderate regurgitation of the bioprosthetic aortic valve, moderate mitral regurgitation, and severe tricuspid regurgitation #7. Pulmonary hypertension with a right-sided pressures of 78 mmHg #8. Advanced COPD with chronic hypoxemic respiratory failure #9. Chronic congestive heart failure with systolic dysfunction #10. History of [place] filter insertion in 2010, for history of DVT #11. Hypertension, hyperlipidemia #12. Obstructive sleep apnea on CPAP therapy #13. Coronary artery disease #14. History of CVA/TIA with memory impairment #15. Gait dysfunction #16. Former smoker, quit smoking in 2009, on and off smoked for 50 years, a pack a day Plan Patient is doing fairly well. No issues for now. Would like to have this patient increased level of activity as tolerated. Discharge planning is in progress as the patient's acute component of hypoxic respiratory status improved with treatment. She is down to 4 L about 2 by nasal cannula which is her baseline.
--- NOTE | 2018-09-11 16:00 | PN ---
PROGRESS NOTE DATE OF SERVICE: 09/11/2018. HISTORY: This 67-year-old woman who was admitted with CHF exacerbation is being closely monitored. No chest pain. No palpitations. No fever. Bilateral leg swelling persisting. EXAM: Alert and oriented x2. Pulse 65, blood pressure 140/55, respirations 20, temperature is 97.2, pulse ox 98% on 4 L. HEENT: Conjunctivae normal. NECK: No JVD. CARDIOVASCULAR: S1 and S2 muffled. LUNGS: Breath sounds diminished at the bases. Few scattered rhonchi and crackles. ABDOMEN: Soft. EXTREMITIES: Bilateral leg edema. NERVOUS SYSTEM: No focal deficits. LABS: WBC 13.3, hemoglobin 13.4, sodium 140, potassium 3.2, CO2 is 42. ASSESSMENT: 1. CHF exacerbation acute on chronic systolic dysfunction, ejection fraction 40% to 45%. 2. Cardiomyopathy. 3. History of pulmonary hypertension. 4. Hypokalemia. 5. Acute hypoxic hypercarbic respiratory failure secondary from pneumonia and chronic obstructive pulmonary disease acute exacerbation. 6. Bibasilar pneumonia possibly gram-negative. 7. Atrial fibrillation recurrent paroxysmal. 8. History of CAD with stent history. 9. Chronic hypoxic respiratory failure on home oxygen at 2 L. 10.History of CVA and TIA. 11.Diabetes mellitus type 2. 12.History of DVT. 13.Hyperlipidemia. 14.Hypertension. 15.Sleep apnea on BiPAP. 16.History of aortic valve replacement. RECOMMENDATIONS: Continue current medical management and symptomatic treatment. Monitor with Cardiology and Pulmonology. Guarded prognosis. Further recommendations to follow. Dr. Mitchell will follow. MMCHERRIEL / IJN: [id number] /
[2018-09-11 16:57] LABS: Glucose,Whole Blood 222 mg/dL (75-99)
[2018-09-11 20:05] LABS: Glucose,Whole Blood 266 mg/dL (75-99)
[2018-09-11] MEDS: traZODone HCL 50 MG TAB PO SCH (20:16)
[2018-09-11] MEDS: ALPRAZolam 0.5 MG TAB PO PRN (22:24)
[2018-09-12] MEDS: ACETAMINOPHEN TAB 325 MG TAB PO PRN ×2 (04:20→08:31)
[2018-09-12 06:35] LABS: Glucose,Whole Blood 172 mg/dL (75-99)
[2018-09-12] MEDS: CLOTRIMAZOLE TROCHE 10 MG TROCHE MUCOUS MEM SCH ×2 (06:36→12:28)
[2018-09-12] MEDS: INSULIN ASPART (NovoLOG) 100 UNIT/ML VIAL SQ SCH ×4 (07:15→12:28)
[2018-09-12] MEDS: metFORMIN 500 MG TAB PO SCH (07:15)
[2018-09-12] MEDS: IPRATROPIUM-ALBUTEROL 3 ML NEB INHALATION SCH ×2 (08:13→11:21)
[2018-09-12] MEDS: DONEPEZIL 10 MG TAB PO SCH (08:31)
[2018-09-12] MEDS: ATENOLOL 25 MG TAB PO SCH (08:32)
[2018-09-12] MEDS: MAGNESIUM OXIDE 400 MG TAB PO SCH (08:32)
[2018-09-12] MEDS: FERROUS SULFATE 325 MG TAB PO SCH (08:32)
[2018-09-12] MEDS: SPIRONOLACTONE 25 MG TAB PO SCH (08:32)
[2018-09-12] MEDS: OXYBUTYNIN CHLORIDE 5 MG TAB PO SCH (08:32)
[2018-09-12] MEDS: AZITHROMYCIN 500 MG TAB PO SCH (08:32)
[2018-09-12] MEDS: ALLOPURINOL 100 MG TAB PO SCH (08:32)
[2018-09-12] MEDS: POTASSIUM CHLORIDE ER 20 MEQ TAB.ER PO SCH (08:32)
[2018-09-12] MEDS: ATORVASTATIN 40 MG TAB PO SCH (08:32)
[2018-09-12] MEDS: FUROSEMIDE 10 MG/ML 4 ML VIAL IV SCH (08:33)
[2018-09-12] MEDS: INSULIN DETEMIR (LEVEMIR) 100 UNIT/ML SYR SQ SCH (08:33)
[2018-09-12] MEDS: APIXABAN 5 MG TAB PO SCH (08:33)
[2018-09-12] MEDS: NITROGLYCERIN OINT 1 INCH/GM PACKET TOPICAL SCH ×3 (08:34→13:04)
[2018-09-12 10:22] LABS: Hemoglobin A1C 8.5 % (4.0-6.0)
--- NOTE | 2018-09-12 11:43 | P.DS ---
Providers Date of admission: 09/06/18 05:05 Expected date of discharge: 09/12/18 Attending physician: Sina Mitchell Consults: 09/06/18 06:45 Consult Physician Routine Consulting Provider: Francisco J Reno Consult Reason/Comments: CHF exacerbation Do you want consulting provider notified?: Yes 09/06/18 12:02 Consult Physician Urgent Consulting Provider: Rick Phillips Consult Reason/Comments: respiratory failure on bi pap Do you want consulting provider notified?: Yes Primary care physician: Sina Mitchell Hospital Course: 67-year-old female on presented the emergency room with acute exacerbation of chronic congestive heart failure patient was placed on BiPAP in the emergency room patient then stabilized. Patient had consultation with cardiology and pulmonology. This morning patient was ambulating with assistance. Discussed case with pulmonology and cleared for discharge home. Patient is a family that assist with her care Assessment CHF acute on chronic systolic dysfunction ejection fraction 40-45% Cardiomyopathy history of pulmonary hypertension Hypokalemia Acute on chronic hypoxic hypercapnic respiratory failure secondary from pneumonia on chronic COPD I basilar pneumonia possibly gram-negative community-acquired History of coronary disease with stents History of CVA/TIA Diabetes type 2 History of DVT Hyperlipidemia Hypertension Sleep apnea on BiPAP History of aortic valve replacement Plan follow-up with cardiology pulmonology and family physician Dr. Sina Mitchell Patient Condition at Discharge: Poor Plan - Discharge Summary New Discharge Prescriptions: New Spironolactone [Aldactone] 25 mg PO DAILY #30 tab traZODone HCL [Desyrel] 50 mg PO HS tab Ipratropium-Albuterol Nebulize [Duoneb 0.5 mg-3 mg/3 ml Soln] 3 ml INHALATION RT-QID #120 ampul.neb Furosemide [Lasix] 40 mg PO DAILY #30 tablet Insulin Detemir (Levemir) [Levemir] 35 unit SQ DAILY syr Acetaminophen Tab [Tylenol] 650 mg PO Q4HR PRN tab PRN Reason: Fever And/ Or Pain Azithromycin [Zithromax] 250 mg PO DAILY #5 tab Continue metFORMIN HCL [Glucophage] 500 mg PO BID Atorvastatin [Lipitor] 40 mg PO DAILY Atenolol 25 mg PO BID Apixaban [Eliquis] 5 mg PO BID Oxybutynin Chloride [Ditropan] 5 mg PO BID Allopurinol [Zyloprim] 100 mg PO DAILY ALPRAZolam [Xanax] 0.5 mg PO DAILY PRN PRN Reason: Anxiety Clotrimazole 10 mg MUCOUS MEM 5XD Donepezil [Aricept] 10 mg PO DAILY INSULIN LISPRO (humaLOG) [humaLOG] 5 units SQ TID Potassium Chloride 10 meq PO DAILY Magnesium 400 mg PO DAILY Ferrous Sulfate [Iron] 325 mg PO DAILY Discontinued Insulin Detemir (Levemir) [Levemir] 20 unit SQ DAILY Metolazone [Zaroxolyn] 5 mg PO DAILY Discharge Medication List Apixaban [Eliquis] 5 mg PO BID 03/10/16 [History] Atenolol 25 mg PO BID 03/10/16 [History] Atorvastatin [Lipitor] 40 mg PO DAILY 03/10/16 [History] metFORMIN HCL [Glucophage] 500 mg PO BID 03/10/16 [History] Allopurinol [Zyloprim] 100 mg PO DAILY 03/30/18 [History] Oxybutynin Chloride [Ditropan] 5 mg PO BID 03/30/18 [History] ALPRAZolam [Xanax] 0.5 mg PO DAILY PRN 09/06/18 [History] Clotrimazole 10 mg MUCOUS MEM 5XD 09/06/18 [History] Donepezil [Aricept] 10 mg PO DAILY 09/06/18 [History] Ferrous Sulfate [Iron] 325 mg PO DAILY 09/06/18 [History] INSULIN LISPRO (humaLOG) [humaLOG] 5 units SQ TID 09/06/18 [History] Magnesium 400 mg PO DAILY 09/06/18 [History] Potassium Chloride 10 meq PO DAILY 09/06/18 [History] Acetaminophen Tab [Tylenol] 650 mg PO Q4HR PRN tab 09/12/18 [Rx] Azithromycin [Zithromax] 250 mg PO DAILY #5 tab 09/12/18 [Rx] Furosemide [Lasix] 40 mg PO DAILY #30 tablet 09/12/18 [Rx] Insulin Detemir (Levemir) [Levemir] 35 unit SQ DAILY syr 09/12/18 [Rx] Ipratropium-Albuterol Nebulize [Duoneb 0.5 mg-3 mg/3 ml Soln] 3 ml INHALATION RT-QID #120 ampul.neb 09/12/18 [Rx] Spironolactone [Aldactone] 25 mg PO DAILY #30 tab 09/12/18 [Rx] traZODone HCL [Desyrel] 50 mg PO HS tab 09/12/18 [Rx] Follow up Appointment(s)/Referral(s): Sina Mitchell MD [Primary Care Provider] - 1-2 days Nelly Sousa MD [STAFF PHYSICIAN] - 09/19/18 9:15 am () Patient Instructions/Handouts: Heart Failure (DC), Low-Sodium Diet (DC) Discharge Disposition: HOME SELF-CARE
[2018-09-12 11:56] LABS: Glucose,Whole Blood 133 mg/dL (75-99)
[2018-09-12 11:58] VITALS: BP 108/56; PULSE 75; RESP 20; TEMP 97
--- NOTE | 2018-09-12 13:17 | P.PN ---
Subjective Progress Note Date: 09/12/18 Principal diagnosis: Acute on chronic hypoxemic respiratory failure is related to acute exacerbation of congestive heart failure with systolic dysfunction This is a 67-year-old white female patient with history of chronic hypoxemic respiratory failure due to history of COPD, and chronic congestive heart failure, previous history of aortic valve replacement bioprosthetic valve in 2009 at [facility], history of atrial fibrillation on chronic anticoagulation in the form of Eliquis, previous history of smoking, patient carries over 50 years of smoking history, quit smoking in 2009, history of CVA with memory impairment. Patient resides with her daughter and her family, requires extensive supervision and assistance with her ADLs, she walks with a walker. On 09/06/2018 patient was brought to the emergency department evaluation of left- sided chest pain, there is a sharp stabbing pain on the left chest wall under the left breast wrapping around to the left posterior back, which is exacerbated by palpation, deep breathing coughing and moving. There is a question whether the patient had possibly injured herself at home, but she denies any history of falls, denies any injury to the chest wall. There is no bruising on the left chest wall, no obvious deformity. Patient denied any fever or chills. Denied any ringing in the lower extremities. Patient's family noted a low pulse oximetry readings at home, patient is on home oxygen at 4 L. She used to see Dr. [facility] pulmonary [facility], and follows with Dr. IGNACIO Sousa history of congestive heart failure. No cough, no chest congestion, chest x-ray was completed showing prominent pulmonary vascularity with mild basilar opacities, related to congestive heart failure exacerbation, lab work showed white blood cell count of 14.7, hemoglobin of 14.2, d-dimer was mildly elevated at 1.0, sodium was 140, potassium is 3.1, chloride is 90, CO2 is 38, BUN 76, creatinine is 1.12. Patient had a bone elevation of 0.056, 0.048, 0.048. ProBNP was elevated at 5090. Pulse ox was 79% on 4 L, currently patient is on 15 L per high flow nasal cannula, her pulse ox in the 100%, BiPAP was ordered by attending physician, patient does have history of obstructive sleep apnea, she is on CPAP at home and according to her daughter is only at 3 cm of water. Potassium was 2.6, patient is on Zaroxolyn at home. Lung sounds reveal fine rales at the bases, diminished breath sounds. Patient has chronic lower extremity edema. Echocardiogram was completed, and showed the EF of 40-45%, moderate regurgitation of the bioprosthetic aortic valve with peak/mean gradient across the aortic valve of 68.5 mmHg/31.6 mmHg. Moderate mitral regurgitation, severe tricuspid regurgitation, severe pulmonary hypertension with right-sided pressures of 78 mmHg. VQ scan was completed and was nondiagnostic due to patient's inability to complete exam. Patient is seen today 09/07/2018 in follow-up on the selective care unit. She is currently awake and alert in no acute distress. Sitting comfortably in bed. Still quite dyspneic with minimal exertion. Still on 15 L high flow nasal cannula to maintain O2 saturations in the 90s. She's been afebrile. Rate controlled. Hemodynamically stable. White count 14.5. Hemoglobin 13.2. Bicarb 43. Creatinine 1.34. She remains on ceftriaxone and azithromycin, bronchodilators and IV diuretics. Chest x-ray continued to show evidence of congestive heart failure. On 09/08/2018 patient seen in follow-up on selective care unit, she is currently on 8 L of oxygen, we will turn it down to 6, and recheck her pulse ox, she did wear the BiPAP last night. She states her left-sided chest wall discomfort persists, but improved. Lung sounds reveal some crackles at bilateral bases, patient's diuresing, yesterday we cut back the dose of Lasix to 40 mg daily, patient is in negative fluid balance, his labs have been reviewed, white blood cell, is 14.1, hemoglobin is 12.8, sodium is 141, potassium is 3.2, chloride is 92, CO2 21, BUN is 59, creatinine is 1.14. On 09/12/2018 patient seen in follow-up sit up in the recliner, in no acute distress. She is on 4 L of oxygen, and this is her home dose oxygen, her pulse ox is 95%, she is afebrile, hemodynamically stable. She states the left-sided c hest wall discomfort has improved, although at times does recur. doing well, tolerating ambulation, cough or chest congestion, lung sounds reveal some bibasilar crackles, but overall no acute events overnight. Objective - Vital Signs Vital signs: Vital Signs Temp 97.0 F L 09/12/18 11:56 Pulse 75 09/12/18 11:56 Resp 20 09/12/18 11:56 BP 108/56 09/12/18 11:56 Pulse Ox 95 09/12/18 11:56 Intake & Output 09/11/18 09/12/18 09/12/18 18:59 06:59 18:59 Intake Total 882 540 Balance 882 540 Weight 96 kg Intake: IV 10 Invasive Line 3 10 Intake, IV Titration 50 Amount cefTRIAXone 1 gm In 50 Sodium Chloride 0.9% 50 ml @ 100 mls/hr IVPB Q24HR [facility] Rx#:[id number] Oral 822 540 Other: Voiding Method Toilet Toilet Diaper Diaper # Voids 3 2 0 # Bowel Movements 0 - Exam GENERAL EXAM: Alert, pleasant, 67-year-old white female, on 4 L per high flow nasal cannula, comfortable in no apparent distress. HEAD: Normocephalic/atraumatic. EYES: Normal reaction of pupils, equal size. Conjunctiva pink, sclera white. NOSE: Clear with pink turbinates. THROAT: No erythema or exudates. NECK: No masses, no JVD, no thyroid enlargement, no adenopathy. CHEST: No chest wall deformity. Symmetrical expansion. LUNGS: Equal air entry with basilar crackles CVS: Regular rate and rhythm, normal S1 and S2, no gallops, no murmurs, no rubs ABDOMEN: Soft, nontender. No hepatosplenomegaly, normal bowel sounds, no guarding or rigidity. EXTREMITIES: No clubbing, 1+ lower extremity edema, no cyanosis, 2+ pulses and upper and lower extremities. MUSCULOSKELETAL: Muscle strength and tone normal. SPINE: No scoliosis or deformity SKIN: No rashes CENTRAL NERVOUS SYSTEM: Alert and oriented -3. No focal deficits, tone is normal in all 4 extremities. PSYCHIATRIC: Alert and oriented -3. Appropriate affect. Intact judgment and insight. - Labs CBC & Chem 7: 09/11/18 06:13 09/11/18 06:13 Labs: Abnormal Lab Results - Last 24 Hours (Table) 09/11/18 09/11/18 09/11/18 Range/Units 06:13 16:27 20:03 POC Glucose (mg/dL) 222 H 266 H (75-99) mg/dL Hemoglobin A1c 8.5 H (4.0-6.0) % 09/12/18 09/12/18 Range/Units 06:32 11:54 POC Glucose (mg/dL) 172 H 133 H (75-99) mg/dL Hemoglobin A1c (4.0-6.0) % Assessment and Plan Plan: Assessment #1. Acute on chronic hypoxemic respiratory failure related to acute exacerbation of congestive heart failure with systolic dysfunction #2. Left-sided chest wall pain exacerbated by movement, with movement and coughing, improved #3. Elevated troponins of 0.056, 0.048, 0.048, and EKG was sinus bradycardia with first-degree AV block, with T-wave inversion in the lateral leads suggesting lateral ischemia #4. Elevated d-dimer, nonspecific, suspicion for pulmonary embolism is quite low especially in view of patient being on chronic anticoagulation. #5. Paroxysmal atrial fibrillation, on Eliquis #6. Valvular heart disease, is post aortic valve replacement in 2010 bioprosthetic valve at [facility], echocardiogram showed moderate regurgitation of the bioprosthetic aortic valve, moderate mitral regurgitation, and severe tricuspid regurgitation #7. Pulmonary hypertension with a right-sided pressures of 78 mmHg #8. Advanced COPD with chronic hypoxemic respiratory failure #9. Chronic congestive heart failure with systolic dysfunction #10. History of Vikram filter insertion in 2009, for history of DVT #11. Hypertension, hyperlipidemia #12. Obstructive sleep apnea on CPAP therapy #13. Coronary artery disease #14. History of CVA/TIA with memory impairment #15. Gait dysfunction #16. Former smoker, quit smoking in 2009, on and off smoked for 50 years, a pack a day Plan: Follow-up chest x-ray has been ordered, pending at this time, but clinically pa tient is stable, down to 4 L of oxygen, home dose oxygen, maintaining good O2 saturations, left-sided chest pain has subsided, and significantly improved. No fever or chills, from pulmonary perspective patient is stable for discharge home today. We'll need follow-up in the outpatient basis with Dr. Betts. I performed a history & physical examination of the patient and discussed their management with my nurse practitioner, Susan Burton. I reviewed the nurse practitioner's note and agree with the documented findings and plan of care. Lung sounds are positive for coarse rales. The findings and the impression was discussed with the patient. I attest to the documentation by the nurse practitioner. Time with Patient: Less than 30
== END 2018-09-12 14:28 | disposition home or self-care (01) | DRG 291 ==
LOC: EC 00:51 → 3SCARD 05:05 → 4MS4W 15:26 → 3SCARD 15:27
PROVIDERS: ADMIT Family Medicine; ATTEND Family Medicine
PROC: 5A09557 Assistance with Respiratory Ventilation, Greater than 96 Consecutive Hours, Continuous Positive Airway Pressure (ICD-10-PCS; principal; 2018-09-06)
DX: I11.0 Hypertensive heart disease with heart failure (principal); J96.21 Acute and chronic respiratory failure with hypoxia; J96.22 Acute and chronic respiratory failure with hypercapnia; J15.6 Pneumonia due to other Gram-negative bacteria; Z68.41 Body mass index [BMI] 40.0-44.9, adult; J44.0 Chronic obstructive pulmonary disease with (acute) lower respiratory infection; J44.1 Chronic obstructive pulmonary disease with (acute) exacerbation; I50.23 Acute on chronic systolic (congestive) heart failure; I27.20 Pulmonary hypertension, unspecified; I48.0 Paroxysmal atrial fibrillation; I42.9 Cardiomyopathy, unspecified; Z79.01 Long term (current) use of anticoagulants; Z95.3 Presence of xenogenic heart valve; Z99.81 Dependence on supplemental oxygen; I69.311 Memory deficit following cerebral infarction; I08.1 Rheumatic disorders of both mitral and tricuspid valves; I25.10 Atherosclerotic heart disease of native coronary artery without angina pectoris; G47.33 Obstructive sleep apnea (adult) (pediatric); F41.9 Anxiety disorder, unspecified; E66.9 Obesity, unspecified; E78.5 Hyperlipidemia, unspecified; E11.9 Type 2 diabetes mellitus without complications; I44.0 Atrioventricular block, first degree; R00.1 Bradycardia, unspecified; R26.9 Unspecified abnormalities of gait and mobility; E87.6 Hypokalemia; R77.8 Other specified abnormalities of plasma proteins; R40.2363 Coma scale, best motor response, obeys commands, at hospital admission; R40.2443 Other coma, without documented Glasgow coma scale score, or with partial score reported, at hospital admission; R40.2253 Coma scale, best verbal response, oriented, at hospital admission; R79.1 Abnormal coagulation profile; Z79.4 Long term (current) use of insulin; Z79.899 Other long term (current) drug therapy; Z86.718 Personal history of other venous thrombosis and embolism; Z95.5 Presence of coronary angioplasty implant and graft; Z90.710 Acquired absence of both cervix and uterus; Z87.891 Personal history of nicotine dependence; Z86.2 Personal history of diseases of the blood and blood-forming organs and certain disorders involving the immune mechanism; Z95.1 Presence of aortocoronary bypass graft; Z98.42 Cataract extraction status, left eye; Z98.41 Cataract extraction status, right eye; Z95.828 Presence of other vascular implants and grafts; Z88.5 Allergy status to narcotic agent; Z88.0 Allergy status to penicillin; Z80.3 Family history of malignant neoplasm of breast; Z99.89 Dependence on other enabling machines and devices
CPT/HCPCS: 36410; 36415; 71045; 76937; 78580; 80048; 80051; 80053; 83036; 83735; 83880; 84132; 84145; 84484; 85025; 85027; 85379; 85610; 85730; 93005; 93306; 94640; 94660; 94760; 96374; 96375; 99291

== ENCOUNTER → 2018-09-26 | Outpatient (CLI) | payer MEDICARE ==
--- NOTE | 2018-09-26 15:56 | XR ---
EXAMINATION TYPE: XR chest 2V DATE OF EXAM: 09/26/2018 COMPARISON: 09/07/2018 TECHNIQUE: PA and lateral views submitted. HISTORY: Difficulty breathing FINDINGS: Heart is enlarged and there is a large retrocardiac density. Interstitial prominence seen and there i s pleural thickening or pleural-based mass along the left upper lobe. A rib deformity in the differen tial diagnosis. Mild central interstitial prominence the pulmonary arteries are enlarged bilaterally. Postsurgical changes are seen. No pneumothorax. Epicardial lead noted. IMPRESSION: 1. Large hiatal hernia 2. Cardiomegaly with findings suggestive of mild central venous congestion. 3. Pleural-based thickening along the mid left chest wall laterally. May be related to previous rib f racture. Pleural-based mass or thickening in the differential diagnosis. 4. Prominent pulmonary arteries correlate for pulmonary arterial hypertension.
== END | disposition home or self-care (01) ==
LOC: RADXRMAIN 15:28
PROVIDERS: ATTEND Physician Assistant
DX: I51.7 Cardiomegaly (principal); J92.9 Pleural plaque without asbestos
CPT/HCPCS: 71046

== ENCOUNTER 2018-09-27 12:21 | Inpatient (IN) | payer MEDICARE ==
[2018-09-27] MEDS ORDERED: SODIUM CHLORIDE 0.9% 500 ML 500 ML IV STA (12:29)
[2018-09-27] MEDS ORDERED: SODIUM CHLORIDE 0.9% 1,000 ML IV STA (12:29)
--- NOTE | 2018-09-27 12:31 | ED ---
Recheck HPI - General Stated Complaint: abn labs Time Seen by Provider: 09/27/18 12:29 Source: RN notes reviewed, old records reviewed - History of Present Illness Initial Comments: This is a 65-year-old female the ER for evaluation no blood thinners coming in for abnormal lab tests, low hemoglobin was significantly point change in hemoglobin. Patient does feel weak admits to recent dark stools. No history of GI bleed no nausea vomiting and no abdominal pain. Patient has not passed out does not feel like she may pass out. MD Complaint: abnormal lab (Hemoglobin) -: unknown Returns Today for: Called Because of Abnormal Lab/Test Symptoms Since Prior Visit: no new symptoms Context: called for abnormal lab result Associated Symptoms: none - Related Data Home Medications Medication Instructions Recorded Confirmed Apixaban [Eliquis] 5 mg PO BID 03/10/16 09/27/18 Atenolol 25 mg PO BID 03/10/16 09/27/18 Atorvastatin [Lipitor] 40 mg PO DAILY 03/10/16 09/27/18 metFORMIN HCL [Glucophage] 500 mg PO BID 03/10/16 09/27/18 Allopurinol [Zyloprim] 100 mg PO DAILY 03/30/18 09/27/18 Oxybutynin Chloride [Ditropan] 5 mg PO BID 03/30/18 09/27/18 ALPRAZolam [Xanax] 0.5 mg PO DAILY PRN 09/06/18 09/27/18 Donepezil [Aricept] 10 mg PO DAILY 09/06/18 09/27/18 Ferrous Sulfate [Iron] 325 mg PO DAILY 09/06/18 09/27/18 INSULIN LISPRO (humaLOG) [humaLOG] 5 units SQ TID 09/06/18 09/27/18 Magnesium 400 mg PO DAILY 09/06/18 09/27/18 Potassium Chloride 10 meq PO DAILY 09/06/18 09/27/18 Albuterol Nebulized [Ventolin 2.5 mg INHALATION RT-Q4H PRN 09/27/18 09/27/18 Nebulized] Budesonide [Pulmicort] 0.5 mg INHALATION RT-BID 09/27/18 09/27/18 Calcium Carbonate 1,000 mg PO DAILY 09/27/18 09/27/18 Previous Rx's Medication Instructions Recorded Azithromycin [Zithromax] 250 mg PO DAILY #5 tab 09/12/18 Furosemide [Lasix] 40 mg PO DAILY #30 tablet 09/12/18 Insulin Detemir (Levemir) [Levemir] 35 unit SQ DAILY syr 09/12/18 Spironolactone [Aldactone] 25 mg PO DAILY #30 tab 09/12/18 Allergies Allergy/AdvReac Type Severity Reaction Status Date / Time codeine Allergy "made me Verified 09/27/18 13:28 feel antsy" Penicillins Allergy Swelling Verified 09/27/18 13:28 Review of Systems ROS Statement: Those systems with pertinent positive or pertinent negative responses have been documented in the HPI. ROS Other: All systems not noted in ROS Statement are negative. Past Medical History Past Medical History: Atrial Fibrillation, Coronary Artery Disease (CAD), COPD, CVA/TIA, Diabetes Mellitus, Deep Vein Thrombosis (DVT), Hyperlipidemia, Hypertension, Sleep Apnea/CPAP/BIPAP Additional Past Medical History / Comment(s): O2 USE NEEDED VIA NC AT 3L, HX OF ANEMIA History of Any Multi-Drug Resistant Organisms: None Reported Past Surgical History: Cardiac Valve Replacement, Heart Catheterization With Stent, Hysterectomy, Orthopedic Surgery Additional Past Surgical History / Comment(s): AORTIC VALVE (BOVINE), WESLY FILTER, ZOIE CATARACT SX, HEART STENT X2 Past Anesthesia/Blood Transfusion Reactions: Previous Problems w/ Anesthesia Additional Past Anesthesia/Blood Transfusion Reaction / Comment(s): TROUBLE WAKING UP IN PAST Date of Last Stent Placement:: 2004 Past Psychological History: Anxiety Smoking Status: Former smoker Past Alcohol Use History: None Reported Past Drug Use History: None Reported - Past Family History Father Family Medical History: Cancer Sister(s) Family Medical History: Cancer Additional Family Medical History / Comment(s): BREAST General Exam General appearance: alert, in no apparent distress Head exam: Present: atraumatic, normocephalic, normal inspection Eye exam: Present: normal appearance, PERRL, EOMI. Absent: scleral icterus, conjunctival injection, periorbital swelling ENT exam: Present: normal exam, mucous membranes moist Neck exam: Present: normal inspection. Absent: tenderness, meningismus, lymphadenopathy Respiratory exam: Present: normal lung sounds bilaterally. Absent: respiratory distress, wheezes, rales, rhonchi, stridor Cardiovascular Exam: Present: regular rate, normal rhythm, normal heart sounds. Absent: systolic murmur, diastolic murmur, rubs, gallop, clicks GI/Abdominal exam: Present: soft, normal bowel sounds. Absent: distended, tenderness, guarding, rebound, rigid Extremities exam: Present: normal inspection, full ROM, normal capillary refill. Absent: tenderness, pedal edema, joint swelling, calf tenderness Back exam: Present: normal inspection Neurological exam: Present: alert, oriented X3, CN II-XII intact Psychiatric exam: Present: normal affect, normal mood Skin exam: Present: warm, dry, intact, normal color. Absent: rash Course Vital Signs 09/27/18 12:39 Temperature 98.3 F Pulse Rate 71 Respiratory 20 Rate Blood Pressure 115/75 O2 Sat by Pulse 96 Oximetry - Reevaluation(s) Reevaluation #1: 09/27/18 14:27 Medical record and prior lab values are reviewed Reevaluation #2: 09/27/18 14:27 Patient has no active bleeding here in the emergency room Medical Decision Making - Medical Decision Making 67 female the ER, will admit here for GI bleed to monitor hemoglobin. - Lab Data Result diagrams: 09/27/18 12:55 09/27/18 12:55 Lab Results 09/27/18 09/27/18 09/27/18 Range/Units 12:55 12:55 12:55 WBC 12.8 H (3.8-10.6) k/uL RBC 3.10 L (3.80-5.40) m/uL Hgb 10.4 L (11.4-16.0) gm/dL Hct 33.2 L (34.0-46.0) % MCV 107.2 H (80.0-100.0) fL MCH 33.7 (25.0-35.0) pg MCHC 31.4 (31.0-37.0) g/dL RDW 15.8 H (11.5-15.5) % Plt Count 276 (150-450) k/uL Neutrophils % 74 % Lymphocytes % 16 % Monocytes % 5 % Eosinophils % 3 % Basophils % 0 % Neutrophils # 9.5 H (1.3-7.7) k/uL Lymphocytes # 2.0 (1.0-4.8) k/uL Monocytes # 0.7 (0-1.0) k/uL Eosinophils # 0.3 (0-0.7) k/uL Basophils # 0.0 (0-0.2) k/uL Hypochromasia Slight Macrocytosis Marked PT (9.0-12.0) sec INR (<1.2) APTT (22.0-30.0) sec Sodium 143 (137-145) mmol/L Potassium 3.9 (3.5-5.1) mmol/L Chloride 104 (98-107) mmol/L Carbon Dioxide 31 H (22-30) mmol/L Anion Gap 8 mmol/L BUN 22 H (7-17) mg/dL Creatinine 1.09 H (0.52-1.04) mg/dL Est GFR (CKD-EPI)AfAm 60 (>60 ml/min/1.73 sqM) Est GFR (CKD-EPI)NonAf 52 (>60 ml/min/1.73 sqM) Glucose 85 (74-99) mg/dL Calcium 9.5 (8.4-10.2) mg/dL Magnesium 1.7 (1.6-2.3) mg/dL Total Bilirubin 0.6 (0.2-1.3) mg/dL AST 25 (14-36) U/L ALT 22 (9-52) U/L Alkaline Phosphatase 108 (38-126) U/L Troponin I 0.018 (0.000-0.034) ng/mL Total Protein 7.3 (6.3-8.2) g/dL Albumin 4.0 (3.5-5.0) g/dL Lipase 230 (23-300) U/L Blood Type Blood Type Recheck Antibody Screen Spec Expiration Date 09/27/18 09/27/18 Range/Units 13:00 13:00 WBC (3.8-10.6) k/uL RBC (3.80-5.40) m/uL Hgb (11.4-16.0) gm/dL Hct (34.0-46.0) % MCV (80.0-100.0) fL MCH (25.0-35.0) pg MCHC (31.0-37.0) g/dL RDW (11.5-15.5) % Plt Count (150-450) k/uL Neutrophils % % Lymphocytes % % Monocytes % % Eosinophils % % Basophils % % Neutrophils # (1.3-7.7) k/uL Lymphocytes # (1.0-4.8) k/uL Monocytes # (0-1.0) k/uL Eosinophils # (0-0.7) k/uL Basophils # (0-0.2) k/uL Hypochromasia Macrocytosis PT 11.3 (9.0-12.0) sec INR 1.1 (<1.2) APTT 25.3 (22.0-30.0) sec Sodium (137-145) mmol/L Potassium (3.5-5.1) mmol/L Chloride (98-107) mmol/L Carbon Dioxide (22-30) mmol/L Anion Gap mmol/L BUN (7-17) mg/dL Creatinine (0.52-1.04) mg/dL Est GFR (CKD-EPI)AfAm (>60 ml/min/1.73 sqM) Est GFR (CKD-EPI)NonAf (>60 ml/min/1.73 sqM) Glucose (74-99) mg/dL Calcium (8.4-10.2) mg/dL Magnesium (1.6-2.3) mg/dL Total Bilirubin (0.2-1.3) mg/dL AST (14-36) U/L ALT (9-52) U/L Alkaline Phosphatase (38-126) U/L Troponin I (0.000-0.034) ng/mL Total Protein (6.3-8.2) g/dL Albumin (3.5-5.0) g/dL Lipase (23-300) U/L Blood Type AB Negative Blood Type Recheck CABO Indicated Antibody Screen NEGATIVE Spec Expiration Date 09/30/20180 Disposition Clinical Impression: Gastrointestinal hemorrhage, Lower gastrointestinal hemorrhage Disposition: ADMITTED IP TO THIS [facility] Condition: Fair Instructions (If sedation given, give patient instructions): Gastrointestinal Bleeding (ED) Is patient prescribed a controlled substance at d/c from ED?: No Referrals: Sina Mitchell MD [Primary Care Provider] - 1-2 days
[2018-09-27 13:14] LABS: Basophils % (A) 0 %; Eosinophils # (A) 0.3 k/uL (0-0.7); Eosinophils % (A) 3 %; HCT 33.2 % (34.0-46.0); HGB 10.4 gm/dL (11.4-16.0); Hypochromasia Slight; Lymphocytes % (A) 16 %; MCH 33.7 pg (25.0-35.0); MCHC 31.4 g/dL (31.0-37.0); MCV 107.2 fL (80.0-100.0); Macrocytosis Marked; Mean Platelet Volume 7.5; Monocytes # (A) 0.7 k/uL (0-1.0); Monocytes % (A) 5 %; Neutrophils # (A) 9.5 k/uL (1.3-7.7); Neutrophils % (A) 74 %; Platelet Count 276 k/uL (150-450); RDW 15.8 % (11.5-15.5); WBC 12.8 k/uL (3.8-10.6)
[2018-09-27 13:32] LABS: INR 1.1 (<1.2); Partial Thromboplastin Time 25.3 sec (22.0-30.0); Prothrombin Time 11.3 sec (9.0-12.0)
[2018-09-27 13:38] LABS: Calcium 9.5 mg/dL (8.4-10.2); Magnesium 1.7 mg/dL (1.6-2.3); Potassium 3.9 mmol/L (3.5-5.1); Total Bilirubin 0.6 mg/dL (0.2-1.3); Total Protein 7.3 g/dL (6.3-8.2)
[2018-09-27 16:15] VITALS: BMI 46.3
[2018-09-27 17:11] LABS: Glucose,Whole Blood 68 mg/dL (75-99)
[2018-09-27 17:30] LABS: Glucose,Whole Blood 91 mg/dL (75-99)
[2018-09-27] MEDS: ACETAMINOPHEN TAB 500 MG TAB PO PRN (18:40)
[2018-09-27 20:24] LABS: Anisocytosis Slight; HGB 9.6 gm/dL (11.4-16.0); Hypochromasia Slight; MCH 34.4 pg (25.0-35.0); MCHC 32.1 g/dL (31.0-37.0); MCV 107.4 fL (80.0-100.0); Macrocytosis Marked; Mean Platelet Volume 7.7; Platelet Count 267 k/uL (150-450); RBC 2.79 m/uL (3.80-5.40); RDW 16.6 % (11.5-15.5); WBC 16.2 k/uL (3.8-10.6)
[2018-09-27 20:49] LABS: Glucose,Whole Blood 111 mg/dL (75-99)
[2018-09-27] MEDS: INSULIN ASPART (NovoLOG) 100 UNIT/ML VIAL SQ SCH ×2 (20:51→20:52)
[2018-09-27] MEDS: OXYBUTYNIN CHLORIDE 5 MG TAB PO SCH (20:57)
[2018-09-27] MEDS: metFORMIN 500 MG TAB PO SCH (20:57)
[2018-09-27] MEDS: ATENOLOL 25 MG TAB PO SCH (20:57)
[2018-09-27] MEDS: ALBUTEROL NEBULIZED 2.5 MG/3 ML INHALATION PRN (21:39)
[2018-09-27] MEDS: BUDESONIDE 0.5 MG/2 ML NEBU INHALATION SCH (21:39)
[2018-09-28] MEDS: ALPRAZolam 0.5 MG TAB PO PRN (00:49)
[2018-09-28] MEDS: ACETAMINOPHEN TAB 500 MG TAB PO PRN ×2 (00:49→17:19)
[2018-09-28 04:50] LABS: Hemoglobin A1C 7.5 % (4.0-6.0)
[2018-09-28 07:13] LABS: Glucose,Whole Blood 137 mg/dL (75-99)
[2018-09-28] MEDS: ALLOPURINOL 100 MG TAB PO SCH (07:34)
[2018-09-28] MEDS: CALCIUM CARBONATE 500 MG CHEWABLE PO SCH (07:34)
[2018-09-28] MEDS: metFORMIN 500 MG TAB PO SCH ×2 (07:34→17:16)
[2018-09-28] MEDS: ATENOLOL 25 MG TAB PO SCH ×2 (07:34→21:44)
[2018-09-28] MEDS: ATORVASTATIN 40 MG TAB PO SCH (07:34)
[2018-09-28] MEDS: INSULIN ASPART (NovoLOG) 100 UNIT/ML VIAL SQ SCH ×7 (07:35→21:43)
[2018-09-28] MEDS: DONEPEZIL 10 MG TAB PO SCH (07:35)
[2018-09-28] MEDS: MAGNESIUM OXIDE 400 MG TAB PO SCH (07:35)
[2018-09-28] MEDS: SPIRONOLACTONE 25 MG TAB PO SCH (07:35)
[2018-09-28] MEDS: FUROSEMIDE 40 MG TAB PO SCH (07:35)
[2018-09-28] MEDS: OXYBUTYNIN CHLORIDE 5 MG TAB PO SCH ×2 (07:36→21:44)
[2018-09-28] MEDS: POTASSIUM CHLORIDE ER 10 MEQ TAB.ER.PRT PO SCH (07:36)
[2018-09-28] MEDS: ALBUTEROL NEBULIZED 2.5 MG/3 ML INHALATION PRN ×3 (08:03→21:22)
[2018-09-28] MEDS: BUDESONIDE 0.5 MG/2 ML NEBU INHALATION SCH ×2 (08:03→21:22)
[2018-09-28] MEDS: INSULIN DETEMIR (LEVEMIR) 100 UNIT/ML SYR SQ SCH (08:41)
[2018-09-28] MEDS ORDERED: FERROUS SULFATE 325 MG TAB PO SCH (09:00)
[2018-09-28 09:08] LABS: Anisocytosis Slight; Basophils % (A) 0 %; Eosinophils # (A) 0.3 k/uL (0-0.7); Eosinophils % (A) 2 %; HCT 29.9 % (34.0-46.0); HGB 9.1 gm/dL (11.4-16.0); Hypochromasia Moderate; Lymphocytes # (A) 2.1 k/uL (1.0-4.8); Lymphocytes % (A) 18 %; MCH 33.5 pg (25.0-35.0); MCHC 30.5 g/dL (31.0-37.0); MCV 109.9 fL (80.0-100.0); Macrocytosis Marked; Mean Platelet Volume 7.9; Monocytes # (A) 0.6 k/uL (0-1.0); Monocytes % (A) 5 %; Neutrophils # (A) 8.3 k/uL (1.3-7.7); Neutrophils % (A) 72 %; Platelet Count 251 k/uL (150-450); RBC 2.72 m/uL (3.80-5.40); RDW 16.4 % (11.5-15.5); WBC 11.5 k/uL (3.8-10.6)
--- NOTE | 2018-09-28 11:04 | P.HPIM ---
History of Present Illness 67-year-old female presented to family practice physician with complaints of fatigue found to have 3. drop in hemoglobin was instructed to go to the emergency room. To be evaluated for gastrointestinal hemorrhage discussed with gastroenterology they've requested pulmonary consultation for clearance. Patient does have a history of valve replacement coronary disease with stent history of atrial fibrillation chronic persistent COPD on home O2. Patient is also diabetic with hypertension sleep apnea Review of Systems Constitutional: Reports fatigue Respiratory: Reports dyspnea Gastrointestinal: Reports hematochezia Past Medical History Past Medical History: Atrial Fibrillation, Coronary Artery Disease (CAD), Heart Failure, COPD, CVA/TIA, Diabetes Mellitus, Deep Vein Thrombosis (DVT), Hyperlip idemia, Hypertension, Pneumonia, Sleep Apnea/CPAP/BIPAP Additional Past Medical History / Comment(s): O2 USE NEEDED VIA NC AT 4L, HX OF ANEMIA, recent admit august 2018 for pneumonia and CHF. Last Myocardial Infarction Date:: 2002 History of Any Multi-Drug Resistant Organisms: None Reported Past Surgical History: Cardiac Valve Replacement, Heart Catheterization With Stent, Hysterectomy, Orthopedic Surgery Additional Past Surgical History / Comment(s): AORTIC VALVE (BOVINE), WESLY FILTER, ZOIE CATARACT SX, HEART STENT X2 Past Anesthesia/Blood Transfusion Reactions: Previous Problems w/ Anesthesia Additional Past Anesthesia/Blood Transfusion Reaction / Comment(s): TROUBLE WAKING UP IN PAST Date of Last Stent Placement:: 2004 Past Psychological History: Anxiety Smoking Status: Former smoker Past Alcohol Use History: None Reported Additional Past Alcohol Use History / Comment(s): SMOKED 1PPD OR MORE SINCE AGE 7 (6) QUIT APPROX 2010 Past Drug Use History: Marijuana Additional Drug Use History / Comment(s): patient has marijuana pen (liquid, by mouth) that she uses 2-3 times daily, prescribled by dr graham. - Past Family History Father Family Medical History: Cancer Sister(s) Family Medical History: Cancer Additional Family Medical History / Comment(s): BREAST Mother Family Medical History: Vascular Disorder Additional Family Medical History / Comment(s): Mother of ruptured aortic aneurysm. Medications and Allergies Home Medications Medication Instructions Recorded Confirmed Type Apixaban [Eliquis] 5 mg PO BID 03/10/16 09/27/18 History Atenolol 25 mg PO BID 03/10/16 09/27/18 History Atorvastatin [Lipitor] 40 mg PO DAILY 03/10/16 09/27/18 History metFORMIN HCL [Glucophage] 500 mg PO BID 03/10/16 09/27/18 History Allopurinol [Zyloprim] 100 mg PO DAILY 03/30/18 09/27/18 History Oxybutynin Chloride [Ditropan] 5 mg PO BID 03/30/18 09/27/18 History ALPRAZolam [Xanax] 0.5 mg PO DAILY PRN 09/06/18 09/27/18 History Donepezil [Aricept] 10 mg PO DAILY 09/06/18 09/27/18 History Ferrous Sulfate [Iron] 325 mg PO DAILY 09/06/18 09/27/18 History INSULIN LISPRO (humaLOG) [humaLOG] 5 units SQ TID 09/06/18 09/27/18 History Magnesium 400 mg PO DAILY 09/06/18 09/27/18 History Potassium Chloride 10 meq PO DAILY 09/06/18 09/27/18 History Azithromycin [Zithromax] 250 mg PO DAILY #5 tab 09/12/18 09/27/18 Rx Furosemide [Lasix] 40 mg PO DAILY #30 tablet 09/12/18 09/27/18 Rx Insulin Detemir (Levemir) [Levemir] 35 unit SQ DAILY syr 09/12/18 09/27/18 Rx Spironolactone [Aldactone] 25 mg PO DAILY #30 tab 09/12/18 09/27/18 Rx Albuterol Nebulized [Ventolin 2.5 mg INHALATION RT-Q4H PRN 09/27/18 09/27/18 History Nebulized] Budesonide [Pulmicort] 0.5 mg INHALATION RT-BID 09/27/18 09/27/18 History Calcium Carbonate 1,000 mg PO DAILY 09/27/18 09/27/18 History Allergies Allergy/AdvReac Type Severity Reaction Status Date / Time codeine Allergy "made me Verified 09/27/18 13:28 feel antsy" Penicillins Allergy Swelling Verified 09/27/18 13:28 Physical Exam Vitals: Vital Signs Temp Pulse Pulse Resp BP BP Pulse Ox 09/28/18 08:23 74 09/28/18 08:06 68 95 09/28/18 07:06 97.5 F L 70 18 107/57 96 09/28/18 01:45 97.7 F 61 24 109/66 91 L 09/27/18 21:59 78 09/27/18 21:41 78 09/27/18 21:40 90 L 09/27/18 19:40 97.8 F 67 18 119/54 93 L 09/27/18 16:00 68 20 09/27/18 15:56 97.7 F 68 20 103/65 96 09/27/18 15:30 106/49 09/27/18 15:27 97.7 F 67 18 106/58 97 09/27/18 15:00 69 113/58 99 09/27/18 14:30 66 113/71 95 09/27/18 14:00 64 104/54 100 09/27/18 13:30 64 111/49 98 09/27/18 13:00 65 115/75 97 09/27/18 12:39 98.3 F 71 20 115/75 96 09/27/18 12:36 69 Intake and Output 09/27/18 09/28/18 09/28/18 22:59 06:59 14:59 Intake Total 1040 Balance 1040 Intake: Amount of Fluid Infused ( 500 ml) Oral 540 Other: Voiding Method Toilet # Voids 1 2 Weight 98.293 kg - Constitutional General appearance: mild distress - EENT Eyes: PERRLA Ears: bilateral: normal - Neck Neck: normal ROM - Respiratory Respiratory: bilateral: diminished - Cardiovascular Rhythm: irregularly irregular Abnormal Heart Sounds: systolic murmur - Gastrointestinal General gastrointestinal: soft - Integumentary Integumentary: normal - Neurologic Neurologic: CNII-XII intact - Musculoskeletal Musculoskeletal: generalized weakness - Psychiatric Psychiatric: A&O x's 3, appropriate affect, intact judgment & insight Results CBC & Chem 7: 09/28/18 08:26 09/27/18 12:55 Labs: Abnormal Lab Results - Last 24 Hours (Table) 09/27/18 09/27/18 09/27/18 Range/Units 12:55 12:55 16:51 WBC 12.8 H (3.8-10.6) k/uL RBC 3.10 L (3.80-5.40) m/uL Hgb 10.4 L (11.4-16.0) gm/dL Hct 33.2 L (34.0-46.0) % MCV 107.2 H (80.0-100.0) fL MCHC (31.0-37.0) g/dL RDW 15.8 H (11.5-15.5) % Neutrophils # 9.5 H (1.3-7.7) k/uL Carbon Dioxide 31 H (22-30) mmol/L BUN 22 H (7-17) mg/dL Creatinine 1.09 H (0.52-1.04) mg/dL POC Glucose (mg/dL) 68 L (75-99) mg/dL Hemoglobin A1c (4.0-6.0) % 09/27/18 09/27/18 09/27/18 Range/Units 20:00 20:00 20:48 WBC 16.2 H (3.8-10.6) k/uL RBC 2.79 L (3.80-5.40) m/uL Hgb 9.6 L (11.4-16.0) gm/dL Hct 30.0 L (34.0-46.0) % MCV 107.4 H (80.0-100.0) fL MCHC (31.0-37.0) g/dL RDW 16.6 H (11.5-15.5) % Neutrophils # (1.3-7.7) k/uL Carbon Dioxide (22-30) mmol/L BUN (7-17) mg/dL Creatinine (0.52-1.04) mg/dL POC Glucose (mg/dL) 111 H (75-99) mg/dL Hemoglobin A1c 7.5 H (4.0-6.0) % 09/28/18 09/28/18 Range/Units 07:03 08:26 WBC 11.5 H (3.8-10.6) k/uL RBC 2.72 L (3.80-5.40) m/uL Hgb 9.1 L (11.4-16.0) gm/dL Hct 29.9 L (34.0-46.0) % MCV 109.9 H (80.0-100.0) fL MCHC 30.5 L (31.0-37.0) g/dL RDW 16.4 H (11.5-15.5) % Neutrophils # 8.3 H (1.3-7.7) k/uL Carbon Dioxide (22-30) mmol/L BUN (7-17) mg/dL Creatinine (0.52-1.04) mg/dL POC Glucose (mg/dL) 137 H (75-99) mg/dL Hemoglobin A1c (4.0-6.0) % Thrombosis Risk Factor Assmnt - Choose All That Apply Any of the Below Risk Factors Present?: Yes Each Factor Represents 1 point: Heart failure (<1month), Swollen legs (current) Other Risk Factors: Yes Each Risk Factor Represents 2 Points: Age 61-74 years Thrombosis Risk Factor Assessment Total Risk Factor Score: 4 Thrombosis Risk Factor Assessment Level: Moderate Risk Assessment and Plan Plan: Assessment GI hemorrhage Anemia blood loss History of coronary disease with stents and valve replacement Chronic persistent atrial fibrillation Severe COPD home O2 History of CVA/TIA Diabetes type 2 History of DVT Hypertension Hyperlipidemia Sleep apnea with CPAP machine Plan Needs clearance for EGD and colonoscopy from pulmonology Continue consultation with gastroenterology plan EGD and colonoscopy tomorrow
--- NOTE | 2018-09-28 11:17 | P.CONS ---
History of Present Illness - Reason for Consult Consult date: 09/28/18 Anemia Requesting physician: Isac Can - Chief Complaint Outpatient abnormal CBC - History of Present Illness 67-year-old female patient Dr. Mitchell with a past medical history of medicinal marijuana usage, chronic hypoxemic respiratory failure advanced COPD O2 dependen t 4 L since 2011, pulmonary hypertension, JOSELITO CPAP, CVA, paroxysmal atrial fibrillation maintained on Eliquis, CAD with previous PCI stent, chronic congestive heart failure, diabetes, DVT, hypertension, hyperlipidemia, bovine aortic valve replacement 2009, Wesly filter, and anxiety. Recently h ospitalized earlier this month with acute on chronic hypoxemic was treated failure related to acute exacerbation of CHF with systolic dysfunction. Patient presents with reports of an abnormal outpatient CBC patient was told by her primary history that her hemoglobin was down by 3 points. Admission hemoglobin 9.7 previously 12.9 10 days ago. MCV 107. Moderate hyperchromasia. Platelet 277. White count 13.3. Presently hemoglobin is 9.1. INR 1.1. BUN 24. Creatinine 1.0. Last dose of Eliquis 2 days ago 09/26/18. Denies weight loss, hematuria, epistaxis, abdominal pain, hematemesis, nausea vomiting fever chills however patient noticed 2 looser bowel movements this week that were a mixture of black/ red blood tinged. No history GI bleeds. No history of recent EGD. Last colonoscopy to her memory 7-10 years ago does not remember the results. No NSAIDs or alcohol. No aspirin. Denies chest pain worsening shortness of breath. No recent blood transfusions. Home medications include iron and did receive an iron infusion last fall. Review of Systems Constitutional: Denies fever, chills, sweats, weight gain, or loss. HEENT: Negative for migraines, blurred vision or loss, earaches, drainage, tinnitus, oral mucosal lesions, dysphagia, or odynophagia. CARDIAC: Paroxysmal atrial fibrillation. Chronic CHF. Negative for chest pain, arrhythmias, or palpitation. RESPIRATORY: Chronic shortness of breath advanced COPD O2 dependent. Denies hemoptysis, cough, or sputum production. GI: See HPI for pertinent findings. : Negative for hematuria, urgency, frequency, polyuria, or dysuria. GYNc: Negative vaginal discharge. MUSCULOSKELETAL: Negative for muscle aches, swelling, arthritis, and arthralgias. NEUROLOGIC: Negative for stroke or TIA. ENDOCRINE: Negative for thyroid problems. SKIN: Negative for rash or itching. PSYCHIATRIC: History of anxiety. Past Medical History Past Medical History: Atrial Fibrillation, Coronary Artery Disease (CAD), Heart Failure, COPD, CVA/TIA, Diabetes Mellitus, Deep Vein Thrombosis (DVT), Hyperlipidemia, Hypertension, Pneumonia, Sleep Apnea/CPAP/BIPAP Additional Past Medical History / Comment(s): O2 USE NEEDED VIA NC AT 4L, HX OF ANEMIA, recent admit august 2018 for pneumonia and CHF. Last Myocardial Infarction Date:: 2002 History of Any Multi-Drug Resistant Organisms: None Reported Past Surgical History: Cardiac Valve Replacement, Heart Catheterization With Stent, Hysterectomy, Orthopedic Surgery Additional Past Surgical History / Comment(s): AORTIC VALVE (BOVINE), WESLY FILTER, ZOIE CATARACT SX, HEART STENT X2 Past Anesthesia/Blood Transfusion Reactions: Previous Problems w/ Anesthesia Additional Past Anesthesia/Blood Transfusion Reaction / Comm: TROUBLE WAKING UP IN PAST Date of Last Stent Placement:: 2004 Past Psychological History: Anxiety Smoking Status: Former smoker Past Alcohol Use History: None Reported Additional Past Alcohol Use History / Comment(s): SMOKED 1PPD OR MORE SINCE AGE 7 (6) QUIT APPROX 2010 Past Drug Use History: Marijuana Additional Drug Use History / Comment(s): patient has marijuana pen (liquid, by mouth) that she uses 2-3 times daily, prescribled by dr graham. - Past Family History Father Family Medical History: Cancer Sister(s) Family Medical History: Cancer Additional Family Medical History / Comment(s): BREAST Mother Family Medical History: Vascular Disorder Additional Family Medical History / Comment(s): Mother of ruptured aortic aneurysm. Medications and Allergies Home Medications Medication Instructions Recorded Confirmed Type Apixaban [Eliquis] 5 mg PO BID 03/10/16 09/27/18 History Atenolol 25 mg PO BID 03/10/16 09/27/18 History Atorvastatin [Lipitor] 40 mg PO DAILY 03/10/16 09/27/18 History metFORMIN HCL [Glucophage] 500 mg PO BID 03/10/16 09/27/18 History Allopurinol [Zyloprim] 100 mg PO DAILY 03/30/18 09/27/18 History Oxybutynin Chloride [Ditropan] 5 mg PO BID 03/30/18 09/27/18 History ALPRAZolam [Xanax] 0.5 mg PO DAILY PRN 09/06/18 09/27/18 History Donepezil [Aricept] 10 mg PO DAILY 09/06/18 09/27/18 History Ferrous Sulfate [Iron] 325 mg PO DAILY 09/06/18 09/27/18 History INSULIN LISPRO (humaLOG) [humaLOG] 5 units SQ TID 09/06/18 09/27/18 History Magnesium 400 mg PO DAILY 09/06/18 09/27/18 History Potassium Chloride 10 meq PO DAILY 09/06/18 09/27/18 History Azithromycin [Zithromax] 250 mg PO DAILY #5 tab 09/12/18 09/27/18 Rx Furosemide [Lasix] 40 mg PO DAILY #30 tablet 09/12/18 09/27/18 Rx Insulin Detemir (Levemir) [Levemir] 35 unit SQ DAILY syr 09/12/18 09/27/18 Rx Spironolactone [Aldactone] 25 mg PO DAILY #30 tab 09/12/18 09/27/18 Rx Albuterol Nebulized [Ventolin 2.5 mg INHALATION RT-Q4H PRN 09/27/18 09/27/18 History Nebulized] Budesonide [Pulmicort] 0.5 mg INHALATION RT-BID 09/27/18 09/27/18 History Calcium Carbonate 1,000 mg PO DAILY 09/27/18 09/27/18 History Allergies Allergy/AdvReac Type Severity Reaction Status Date / Time codeine Allergy "made me Verified 09/27/18 13:28 feel antsy" Penicillins Allergy Swelling Verified 09/27/18 13:28 Physical Exam Vitals: Vital Signs Temp Pulse Pulse Resp BP BP Pulse Ox 09/28/18 08:23 74 09/28/18 08:06 68 95 09/28/18 07:06 97.5 F L 70 18 107/57 96 09/28/18 01:45 97.7 F 61 24 109/66 91 L 09/27/18 21:59 78 09/27/18 21:41 78 09/27/18 21:40 90 L 09/27/18 19:40 97.8 F 67 18 119/54 93 L 09/27/18 16:00 68 20 09/27/18 15:56 97.7 F 68 20 103/65 96 09/27/18 15:30 106/49 09/27/18 15:27 97.7 F 67 18 106/58 97 09/27/18 15:00 69 113/58 99 09/27/18 14:30 66 113/71 95 09/27/18 14:00 64 104/54 100 09/27/18 13:30 64 111/49 98 09/27/18 13:00 65 115/75 97 09/27/18 12:39 98.3 F 71 20 115/75 96 09/27/18 12:36 69 Intake and Output 09/27/18 09/28/18 09/28/18 22:59 06:59 14:59 Intake Total 1040 Balance 1040 Intake: Amount of Fluid Infused ( 500 ml) Oral 540 Other: Voiding Method Toilet # Voids 1 2 Weight 98.293 kg General appearance: The patient is alert, oriented, in no acute distress. HET: Head is normocephalic and atraumatic. Pupils are equal and reactive. Oropharynx is clear without lesions. Neck: Supple without lymphadenopathy. Trachea midline. Heart: S1 S2. Regular rate and rhythm. Lungs: No diminished. Abdomen: Soft, nontender, nondistended with bowel sounds. No peritoneal signs. No palpable organomegaly or masses. Extremities: +3 bilateral lower extremity edema. Radial and pedal pulses are 2/4 bilaterally. Neurological: No focal deficits. Strength and sensation are grossly intact. Results CBC & Chem 7: 09/28/18 08:26 09/27/18 12:55 Labs: Abnormal Lab Results - Last 24 Hours (Table) 09/27/18 09/27/18 09/27/18 Range/Units 12:55 12:55 16:51 WBC 12.8 H (3.8-10.6) k/uL RBC 3.10 L (3.80-5.40) m/uL Hgb 10.4 L (11.4-16.0) gm/dL Hct 33.2 L (34.0-46.0) % MCV 107.2 H (80.0-100.0) fL MCHC (31.0-37.0) g/dL RDW 15.8 H (11.5-15.5) % Neutrophils # 9.5 H (1.3-7.7) k/uL Carbon Dioxide 31 H (22-30) mmol/L BUN 22 H (7-17) mg/dL Creatinine 1.09 H (0.52-1.04) mg/dL POC Glucose (mg/dL) 68 L (75-99) mg/dL Hemoglobin A1c (4.0-6.0) % 09/27/18 09/27/18 09/27/18 Range/Units 20:00 20:00 20:48 WBC 16.2 H (3.8-10.6) k/uL RBC 2.79 L (3.80-5.40) m/uL Hgb 9.6 L (11.4-16.0) gm/dL Hct 30.0 L (34.0-46.0) % MCV 107.4 H (80.0-100.0) fL MCHC (31.0-37.0) g/dL RDW 16.6 H (11.5-15.5) % Neutrophils # (1.3-7.7) k/uL Carbon Dioxide (22-30) mmol/L BUN (7-17) mg/dL Creatinine (0.52-1.04) mg/dL POC Glucose (mg/dL) 111 H (75-99) mg/dL Hemoglobin A1c 7.5 H (4.0-6.0) % 09/28/18 09/28/18 Range/Units 07:03 08:26 WBC 11.5 H (3.8-10.6) k/uL RBC 2.72 L (3.80-5.40) m/uL Hgb 9.1 L (11.4-16.0) gm/dL Hct 29.9 L (34.0-46.0) % MCV 109.9 H (80.0-100.0) fL MCHC 30.5 L (31.0-37.0) g/dL RDW 16.4 H (11.5-15.5) % Neutrophils # 8.3 H (1.3-7.7) k/uL Carbon Dioxide (22-30) mmol/L BUN (7-17) mg/dL Creatinine (0.52-1.04) mg/dL POC Glucose (mg/dL) 137 H (75-99) mg/dL Hemoglobin A1c (4.0-6.0) % Assessment and Plan (1) Anemia Narrative/Plan: 67-year-old female with a history of multiple medical comorbidities including but not limited to advanced COPD O2 dependent 4L chronic hypoxemic respiratory failure chronic CHF paroxysmal atrial fibrillation valvular heart disease with replacement maintained on anticoagulation and IVC filter presents with reports of an abnormal CBC macrocytic hypochromic acute blood loss anemia hemoglobin 9.1 previously in the 12 range 2 weeks ago with symptoms of acute GI bleed 2 bowel movements this week that were a mixture of black red blood tinged without abdominal pain shortness of breath chest pain fever chills or weight loss. Etiology of GI bleed is multifactorial possible acute colonic diverticular bleeding, bleeding colonic AVM , possible neoplasm, possible upper GI small bowel source exacerbated by anticoagulation. Current Visit: Yes Status: Acute Code(s): D64.9 - ANEMIA, UNSPECIFIED SNOMED Code(s): 808064286 (2) Advanced COPD Current Visit: Yes Status: Acute Code(s): J44.9 - CHRONIC OBSTRUCTIVE PULMONARY DISEASE, UNSPECIFIED SNOMED Code(s): 48760478 (3) Paroxysmal A-fib Current Visit: Yes Status: Acute Code(s): I48.0 - PAROXYSMAL ATRIAL FIBRILLATION SNOMED Code(s): 435811473 (4) Chronic CHF Current Visit: Yes Status: Acute Code(s): I50.9 - HEART FAILURE, UNSPECIFIED SNOMED Code(s): 76882007 (5) Oxygen dependent Current Visit: Yes Status: Acute Code(s): Z99.81 - DEPENDENCE ON SUPPLEMENTAL OXYGEN SNOMED Code(s): 021788324384 Plan: 1. Patient has a complex medical history of cardiac and advanced COPD disease that will require medical and pulmonary clearance prior to proceeding with EGD colonoscopy possible small bowel capsule endoscopy; tentatively scheduled tomorrow afternoon pending clearance. 2. Iron indices B12 folate and ferritin retic count requested. Stool guaiac. Hold oral iron for now until endoscopic/small bowel capsule study can be completed. 3. Clear liquids. 4. Hold anticoagulation. 5. CBC monitoring. Protonix 40 mg daily. Once pulmonary medical clearance has been obtained we'll proceed with endoscopic exams. We'll follow closely with you. The moving picture producer has discussed the risks, benefits and alternative therapies for the above-mentioned procedure and for both sedation/analgesia as well as necessary blood product administration, if indicated, as they pertain to this patient. The patient has indicated understanding and acceptance of the risks and procedures discussed. Thank you for this kind referral and the opportunity to participate in the care of your patient. This consultation was discussed with Dr. Can. The impre ssion and plan of care have been directed as dictated.
--- NOTE | 2018-09-28 11:39 | XR ---
EXAMINATION TYPE: XR chest 2V DATE OF EXAM: 09/28/2018 COMPARISON: 09/26/2018 TECHNIQUE: PA and lateral views submitted. HISTORY: Difficulty breathing FINDINGS: Pulmonary arteries are enlarged correlate for pulmonary arterial hypertension. The heart is enlarged. There is postoperative change. There is a large hiatal hernia. No pneumothorax. Interstitium mildly prominent. Deformity along the lateral margin of the left midlung may be pleural-based related to the rib. There is stable from previous. Subsegmental changes at the right lung base. Suggestion of possi ble IVC filter. Epicardial lead noted. IMPRESSION: 1. Very large hiatal hernia likely containing the entire stomach. 2. Pulmonary arterial hypertension correlate for mild chronic interstitial lung disease or central ve nous congestion stable in appearance. 3. Persistent pleural-based density along the left midlung. This could be evaluated with CT scan as c linically warranted.
[2018-09-28 12:02] LABS: Glucose,Whole Blood 112 mg/dL (75-99)
[2018-09-28] MEDS: PANTOPRAZOLE 40 MG/10 ML VIAL IVP SCH (12:10)
[2018-09-28 12:14] LABS: Reticulocyte % 4.7 % (0.5-2.0)
--- NOTE | 2018-09-28 12:55 | P.NPCON ---
History of Present Illness - Reason for Consult acute renal failure - History of Present Illness Reason for consultation: Acute kidney injury History of present illness: Patient is a 67-year-old female seen in consultation for acute kidney injury. Baseline creatinine is near 1. It was elevated at 1.09 yesterday. Labs from today are pending. Patient states she had blood work and as an outpatient and was noted to have a drop in hemoglobin and was advised to go to the hospital. Hemoglobin today is 9.1. Patient states she's been having dark bowel movements. She had one episode with bright red blood. No hematuria or dysuria. No vomiting or diarrhea. Oral intake has been good. Denies use of nonsteroidals. She has long-standing history of diabetes mellitus. Patient has history of systolic CHF with ejection fraction of 40-45% with moderate mitral regurgitation, moderate to severe tricuspid regurgitation and severe pulmonary hypertension. She admits to good urine output. Denies family history of renal disease. She has been evaluated by GI and is being considered for endoscopy his admission. Vital signs are stable. General: The patient appeared well nourished and normally developed. HEENT: Head exam is unremarkable. Neck is without jugular venous distension. LUNGS: Breath sounds decreased. HEART: Rate and Rhythm are regular. First and second heart sounds normal. No murmurs, rubs or gallops. ABDOMEN: Abdominal exam reveals normal bowel sounds. Non-tender and non- distended. No evidence of peritonitis. EXTREMITITES: 1+ edema. Past Medical History Past Medical History: Atrial Fibrillation, Coronary Artery Disease (CAD), Heart Failure, COPD, CVA/TIA, Diabetes Mellitus, Deep Vein Thrombosis (DVT), Hyperlipidemia, Hypertension, Pneumonia, Sleep Apnea/CPAP/BIPAP Additional Past Medical History / Comment(s): O2 USE NEEDED VIA NC AT 4L, HX OF ANEMIA, recent admit august 2018 for pneumonia and CHF. Last Myocardial Infarction Date:: 2002 History of Any Multi-Drug Resistant Organisms: None Reported Past Surgical History: Cardiac Valve Replacement, Heart Catheterization With Stent, Hysterectomy, Orthopedic Surgery Additional Past Surgical History / Comment(s): AORTIC VALVE (BOVINE), WESLY FILTER, ZOIE CATARACT SX, HEART STENT X2 Past Anesthesia/Blood Transfusion Reactions: Previous Problems w/ Anesthesia Additional Past Anesthesia/Blood Transfusion Reaction / Comment(s): TROUBLE WAKING UP IN PAST Date of Last Stent Placement:: 2004 Past Psychological History: Anxiety Smoking Status: Former smoker Past Alcohol Use History: None Reported Additional Past Alcohol Use History / Comment(s): SMOKED 1PPD OR MORE SINCE AGE 7 (6) QUIT APPROX 2010 Past Drug Use History: Marijuana Additional Drug Use History / Comment(s): patient has marijuana pen (liquid, by mouth) that she uses 2-3 times daily, prescribled by dr graham. - Past Family History Father Family Medical History: Cancer Sister(s) Family Medical History: Cancer Additional Family Medical History / Comment(s): BREAST Mother Family Medical History: Vascular Disorder Additional Family Medical History / Comment(s): Mother of ruptured aortic aneurysm. Medications and Allergies Home Medications Medication Instructions Recorded Confirmed Type Apixaban [Eliquis] 5 mg PO BID 03/10/16 09/27/18 History Atenolol 25 mg PO BID 03/10/16 09/27/18 History Atorvastatin [Lipitor] 40 mg PO DAILY 03/10/16 09/27/18 History metFORMIN HCL [Glucophage] 500 mg PO BID 03/10/16 09/27/18 History Allopurinol [Zyloprim] 100 mg PO DAILY 03/30/18 09/27/18 History Oxybutynin Chloride [Ditropan] 5 mg PO BID 03/30/18 09/27/18 History ALPRAZolam [Xanax] 0.5 mg PO DAILY PRN 09/06/18 09/27/18 History Donepezil [Aricept] 10 mg PO DAILY 09/06/18 09/27/18 History Ferrous Sulfate [Iron] 325 mg PO DAILY 09/06/18 09/27/18 History INSULIN LISPRO (humaLOG) [humaLOG] 5 units SQ TID 09/06/18 09/27/18 History Magnesium 400 mg PO DAILY 09/06/18 09/27/18 History Potassium Chloride 10 meq PO DAILY 09/06/18 09/27/18 History Azithromycin [Zithromax] 250 mg PO DAILY #5 tab 09/12/18 09/27/18 Rx Furosemide [Lasix] 40 mg PO DAILY #30 tablet 09/12/18 09/27/18 Rx Insulin Detemir (Levemir) [Levemir] 35 unit SQ DAILY syr 09/12/18 09/27/18 Rx Spironolactone [Aldactone] 25 mg PO DAILY #30 tab 09/12/18 09/27/18 Rx Albuterol Nebulized [Ventolin 2.5 mg INHALATION RT-Q4H PRN 09/27/18 09/27/18 His tory Nebulized] Budesonide [Pulmicort] 0.5 mg INHALATION RT-BID 09/27/18 09/27/18 History Calcium Carbonate 1,000 mg PO DAILY 09/27/18 09/27/18 History Allergies Allergy/AdvReac Type Severity Reaction Status Date / Time codeine Allergy "made me Verified 09/27/18 13:28 feel antsy" Penicillins Allergy Swelling Verified 09/27/18 13:28 Physical Exam Vitals: Vital Signs Temp Pulse Pulse Resp BP BP Pulse Ox 09/28/18 11:53 70 09/28/18 11:43 74 09/28/18 08:23 74 09/28/18 08:06 68 95 09/28/18 07:06 97.5 F L 70 18 107/57 96 09/28/18 01:45 97.7 F 61 24 109/66 91 L 09/27/18 21:59 78 09/27/18 21:41 78 09/27/18 21:40 90 L 09/27/18 19:40 97.8 F 67 18 119/54 93 L 09/27/18 16:00 68 20 09/27/18 15:56 97.7 F 68 20 103/65 96 09/27/18 15:30 106/49 09/27/18 15:27 97.7 F 67 18 106/58 97 09/27/18 15:00 69 113/58 99 09/27/18 14:30 66 113/71 95 09/27/18 14:00 64 104/54 100 09/27/18 13:30 64 111/49 98 09/27/18 13:00 65 115/75 97 Intake and Output 09/27/18 09/28/18 09/28/18 22:59 06:59 14:59 Intake Total 1040 Balance 1040 Intake: Amount of Fluid Infused ( 500 ml) Oral 540 Other: Voiding Method Toilet # Voids 1 2 4 Weight 98.293 kg Results - Lab Results Most recent lab results Calcium 9.5 mg/dL (8.4-10.2) 09/27/18 12:55 Magnesium 1.7 mg/dL (1.6-2.3) 09/27/18 12:55 09/28/18 08:26 09/27/18 12:55 Assessment and Plan Plan: Assessment: 1. Acute kidney injury mostly prerenal secondary to cardiorenal syndrome. Creatinine 1.09 as of yesterday. 2. Systolic CHF with ejection fraction of 40-45% with moderate mitral regurgitation, moderate to severe tricuspid regurgitation and severe pulmonary hypertension. 3. Mild volume overload. 4. Insulin-dependent diabetes mellitus. 5. Acute blood loss anemia. Rule out iron deficiency. Potential endoscopy this admission. Gastroenterology following. Plan: Hep-Lock IV fluids. Maintain Lasix 40 mg orally once daily. Check urinalysis. Avoid nephrotoxins. Check iron studies. Repeat electrolytes in the morning. Thank you for the consultation. I will continue to follow the patient with you during her hospital stay.
[2018-09-28 14:43] LABS: Amorphous Sediment,Urine Rare /hpf; Appearance,Urine Clear (Clear); Bacteria,Urine Occasional /hpf; Bilirubin,Urine Negative (Negative); Blood,Urine Negative (Negative); Color,Urine Light Yellow; Glucose,Urine (UA) Negative (Negative); Ketones,Urine Negative (Negative); Leukocyte Esterase,Urine Moderate (Negative); Mucus,Urine Rare /hpf; Nitrite,Urine Negative (Negative); PH, Urine 6.5 (5.0-8.0); Protein,Urine Negative (Negative); RBC,Urine 1 /hpf (0-5); Squamous Epithelial Cell,Urine 5 /hpf (0-4); Urobilinogen,Urine <2.0 mg/dL (<2.0); WBC,Urine 13 /hpf (0-5)
[2018-09-28] MEDS ORDERED: BISACODYL 5 MG TABLET.DR PO ONE (15:00)
[2018-09-28] MEDS ORDERED: PEG 3350-NA SULF,BICARB,CL/KCL 4,000 ML BOTTLE PO ONE (16:00)
[2018-09-28 17:15] LABS: Glucose,Whole Blood 115 mg/dL (75-99)
--- NOTE | 2018-09-28 17:41 | P.CNPUL ---
History of Present Illness Consult date: 09/28/18 Requesting physician: Sina Mitchell Reason for consult: other Chief complaint: Blood loss anemia, melena, bright red blood per rectum History of present illness: This is a 67-year-old white female patient with the multiple comorbidities including chronic congestive heart failure with systolic dysfunction, paroxysmal atrial fibrillation on chronic anticoagulation in the form of Eliquis, valvular heart disease status post aortic valve replacement for aortic stenosis, and patient has moderate mitral regurgitation and severe tricuspid regurgitation, pulmonary hypertension, advanced COPD with chronic hypoxemic respiratory failure, history of Wesly filter insertion for history of DVT, hy pertension, hyperlipidemia, obstructive sleep apnea on CPAP and prior history of CVA who we recently saw in consultation in the beginning of August for left-sided chest wall discomfort, and acute on chronic hypoxemic respiratory failure related to acute CHF exacerbation, and left basilar pneumonia could not completely be excluded, so patient was treated with combination of antibiotics, she was diuresed, FiO2 was down to her usual 4 L, and patient was discharged home in stable condition on 09/12/2018. After going home patient is a couple episodes of dark tarry stools, with some bright red blood in it, no hematemesis, and she saw her primary care physician Dr. Mitchell, and blood work was done sh owing 3 g drop in her hemoglobin from 12.9-9.6 from 09/15/2018 to 09/27/2018. Patient denies any fever or chills, denies cough or congestion, her breathing is at her baseline, she has chronic dyspnea with exertion, she wears home O2, she does have left-sided chest wall discomfort, which is reproducible, and according to the patient and the family that has been chronic in nature since her aortic v alve replacement surgery back in 2009, and subsequently patient apparently had sustained some trauma from a fall to the left chest wall. Patient denied any lightheadedness or dizziness, denied any sternal pain. Admission lab work showed white blood cell count of 16.2, hemoglobin 9.6, INR is 1.1, her Eliquis has been held. Patient has been hemodynamically stable, GI service was consulted, and they're considering EGD and colonoscopy with possible small bowel capsule endoscopy. We're consulted for pulmonary clearance Review of Systems All systems: negative Constitutional: Denies chills, Denies fever Eyes: denies blurred vision, denies pain Ears, nose, mouth and throat: Denies headache, Denies sore throat Cardiovascular: Denies chest pain, Denies shortness of breath Respiratory: Denies cough Gastrointestinal: Reports hematochezia, Reports melena, Denies abdominal pain, Denies diarrhea, Denies nausea, Denies vomiting Genitourinary: Denies dysuria, Denies hematuria Musculoskeletal: Denies myalgias Integumentary: Denies pruritus, Denies rash Neurological: Denies numbness, Denies weakness Psychiatric: Denies anxiety, Denies depression Endocrine: Denies fatigue, Denies weight change Past Medical History Past Medical History: Atrial Fibrillation, Coronary Artery Disease (CAD), Heart Failure, COPD, CVA/TIA, Diabetes Mellitus, Deep Vein Thrombosis (DVT), Hyperlipidemia, Hypertension, Pneumonia, Sleep Apnea/CPAP/BIPAP Additional Past Medical History / Comment(s): O2 USE NEEDED VIA NC AT 4L, HX OF ANEMIA, recent admit august 2018 for pneumonia and CHF. Last Myocardial Infarction Date:: 2002 History of Any Multi-Drug Resistant Organisms: None Reported Past Surgical History: Cardiac Valve Replacement, Heart Catheterization With Stent, Hysterectomy, Orthopedic Surgery Additional Past Surgical History / Comment(s): AORTIC VALVE (BOVINE), WESLY FILTER, ZOIE CATARACT SX, HEART STENT X2 Past Anesthesia/Blood Transfusion Reactions: Previous Problems w/ Anesthesia Additional Past Anesthesia/Blood Transfusion Reaction / Comment(s): TROUBLE WAKING UP IN PAST Date of Last Stent Placement:: 2004 Past Psychological History: Anxiety Smoking Status: Former smoker Past Alcohol Use History: None Reported Additional Past Alcohol Use History / Comment(s): SMOKED 1PPD OR MORE SINCE AGE 7 (6) QUIT APPROX 2010 Past Drug Use History: Marijuana Additional Drug Use History / Comment(s): patient has marijuana pen (liquid, by mouth) that she uses 2-3 times daily, prescribled by dr graham. - Past Family History Father Family Medical History: Cancer Sister(s) Family Medical History: Cancer Additional Family Medical History / Comment(s): BREAST Mother Family Medical History: Vascular Disorder Additional Family Medical History / Comment(s): Mother of ruptured aortic aneurysm. Medications and Allergies Home Medications Medication Instructions Recorded Confirmed Type Apixaban [Eliquis] 5 mg PO BID 03/10/16 09/27/18 History Atenolol 25 mg PO BID 03/10/16 09/27/18 History Atorvastatin [Lipitor] 40 mg PO DAILY 03/10/16 09/27/18 History metFORMIN HCL [Glucophage] 500 mg PO BID 03/10/16 09/27/18 History Allopurinol [Zyloprim] 100 mg PO DAILY 03/30/18 09/27/18 History Oxybutynin Chloride [Ditropan] 5 mg PO BID 03/30/18 09/27/18 History ALPRAZolam [Xanax] 0.5 mg PO DAILY PRN 09/06/18 09/27/18 History Donepezil [Aricept] 10 mg PO DAILY 09/06/18 09/27/18 History Ferrous Sulfate [Iron] 325 mg PO DAILY 09/06/18 09/27/18 History INSULIN LISPRO (humaLOG) [humaLOG] 5 units SQ TID 09/06/18 09/27/18 History Magnesium 400 mg PO DAILY 09/06/18 09/27/18 History Potassium Chloride 10 meq PO DAILY 09/06/18 09/27/18 History Azithromycin [Zithromax] 250 mg PO DAILY #5 tab 09/12/18 09/27/18 Rx Furosemide [Lasix] 40 mg PO DAILY #30 tablet 09/12/18 09/27/18 Rx Insulin Detemir (Levemir) [Levemir] 35 unit SQ DAILY syr 09/12/18 09/27/18 Rx Spironolactone [Aldactone] 25 mg PO DAILY #30 tab 09/12/18 09/27/18 Rx Albuterol Nebulized [Ventolin 2.5 mg INHALATION RT-Q4H PRN 09/27/18 09/27/18 History Nebulized] Budesonide [Pulmicort] 0.5 mg INHALATION RT-BID 09/27/18 09/27/18 History Calcium Carbonate 1,000 mg PO DAILY 09/27/18 09/27/18 History Allergies Allergy/AdvReac Type Severity Reaction Status Date / Time codeine Allergy "made me Verified 09/27/18 13:28 feel antsy" Penicillins Allergy Swelling Verified 09/27/18 13:28 Physical Exam Vitals: Vital Signs Temp Pulse Pulse Resp BP Pulse Ox 09/28/18 14:40 97.8 F 97 16 98/62 94 L 09/28/18 11:53 70 09/28/18 11:43 74 09/28/18 08:23 74 09/28/18 08:06 68 95 09/28/18 07:06 97.5 F L 70 18 107/57 96 09/28/18 01:45 97.7 F 61 24 109/66 91 L 09/27/18 21:59 78 09/27/18 21:41 78 09/27/18 21:40 90 L 09/27/18 19:40 97.8 F 67 18 119/54 93 L Intake and Output 09/28/18 09/28/18 09/28/18 06:59 14:59 22:59 Intake Total 540 Balance 540 Intake: Oral 540 Other: Voiding Method Toilet Toilet # Voids 2 4 4 Weight 98.293 kg GENERAL EXAM: Alert, pleasant, 67-year-old white female on 4 L of oxygen,, comfortable in no apparent distress. HEAD: Normocephalic/atraumatic. EYES: Normal reaction of pupils, equal size. Conjunctiva pink, sclera white. NOSE: Clear with pink turbinates. THROAT: No erythema or exudates. NECK: No masses, no JVD, no thyroid enlargement, no adenopathy. CHEST: No chest wall deformity. Symmetrical expansion. LUNGS: Equal air entry with diminished breath sounds, and basilar crackles, rhonchi, no wheezes CVS: Regular rate and rhythm, normal S1 and S2, no gallops, no murmurs, no rubs ABDOMEN: Soft, nontender. No hepatosplenomegaly, normal bowel sounds, no guarding or rigidity. EXTREMITIES: No clubbing, nonpitting edema and cellulitis type changes and lower extremities, and lower extremities is warm, slightly tender, no cyanosis, 2+ pulses and upper and lower extremities. MUSCULOSKELETAL: Muscle strength and tone normal. SPINE: No scoliosis or deformity SKIN: No rashes CENTRAL NERVOUS SYSTEM: Alert and oriented -3. No focal deficits, tone is normal in all 4 extremities. PSYCHIATRIC: Alert and oriented -3. Appropriate affect. Intact judgment and insight. Results - Laboratory Findings CBC and BMP: 09/28/18 08:26 09/27/18 12:55 PT/INR, D-dimer PT 11.3 sec (9.0-12.0) 09/27/18 13:00 INR 1.1 (<1.2) 09/27/18 13:00 Abnormal lab findings: Abnormal Labs 09/27/18 09/27/18 09/27/18 12:55 12:55 16:51 WBC 12.8 H RBC 3.10 L Hgb 10.4 L Hct 33.2 L MCV 107.2 H MCHC RDW 15.8 H Neutrophils # 9.5 H Retic Count Carbon Dioxide 31 H BUN 22 H Creatinine 1.09 H POC Glucose (mg/dL) 68 L Hemoglobin A1c Ur Leukocyte Esterase Urine WBC Ur Squamous Epith Cells Amorphous Sediment Urine Bacteria Urine Mucus 09/27/18 09/27/18 09/27/18 20:00 20:00 20:48 WBC 16.2 H RBC 2.79 L Hgb 9.6 L Hct 30.0 L MCV 107.4 H MCHC RDW 16.6 H Neutrophils # Retic Count Carbon Dioxide BUN Creatinine POC Glucose (mg/dL) 111 H Hemoglobin A1c 7.5 H Ur Leukocyte Esterase Urine WBC Ur Squamous Epith Cells Amorphous Sediment Urine Bacteria Urine Mucus 09/28/18 09/28/18 09/28/18 07:03 08:26 08:26 WBC 11.5 H RBC 2.72 L Hgb 9.1 L Hct 29.9 L MCV 109.9 H MCHC 30.5 L RDW 16.4 H Neutrophils # 8.3 H Retic Count 4.7 H Carbon Dioxide BUN Creatinine POC Glucose (mg/dL) 137 H Hemoglobin A1c Ur Leukocyte Esterase Urine WBC Ur Squamous Epith Cells Amorphous Sediment Urine Bacteria Urine Mucus 09/28/18 09/28/18 09/28/18 11:40 14:20 17:13 WBC RBC Hgb Hct MCV MCHC RDW Neutrophils # Retic Count Carbon Dioxide BUN Creatinine POC Glucose (mg/dL) 112 H 115 H Hemoglobin A1c Ur Leukocyte Esterase Moderate H Urine WBC 13 H Ur Squamous Epith Cells 5 H Amorphous Sediment Rare H Urine Bacteria Occasional H Urine Mucus Rare H - Diagnostic Findings Chest x-ray: report reviewed, image reviewed Assessment and Plan Plan: Assessment: #1. Acute GI blood loss anemia, had melanotic stools at home, with some visible bright red blood, no hematemesis #2. Mild leukocytosis, chest x-ray is without any focal infiltrates #3. Chronic hypoxemic respiratory failure related to COPD, and chronic congestive heart failure with systolic dysfunction #4. Chronic left-sided chest wall pain reproducible #5. Paroxysmal atrial fibrillation, patient was on anticoagulation with Eliquis, which is currently on hold #6. Valvular heart disease, status post aortic valve replacement in 2010 with bioprosthetic valve at [facility], for aortic valve stenosis, moderate mitral regurgitation and severe tricuspid regurgitation #7. Pulmonary hypertension right-sided pressures of 78 mmHg #8. Advanced COPD with chronic hypoxic rest or a failure #9. History of Wesly filter in 2010 for history of DVT #10. Hypertension, hyperlipidemia #11. Obstructive sleep apnea on CPAP therapy #12. Her artery disease #13. History of CVA/TIA with memory impairment #14. His function #15. Former smoker, quit smoking 2009, on and off smoked for 50 years, a pack a day #16. Recent hospitalization for acute exacerbation of congestive heart failure and the possibility of left basilar pneumonia could not be excluded, so the patient was treated with the course of antibiotics Plan: In terms of breathing patient is at her baseline, she is on her usual 4 L of oxygen, she denies any worsening shortness of breath, no cough or congestion, chest x-ray has been reviewed by Dr. Betts, shows no focal infiltrates, vital signs are stable, no fever or chills, patient is cleared for endoscopic studies from pulmonary perspective, we'll continue to follow I performed a history & physical examination of the patient and discussed their management with my nurse practitioner, Susan Burton. I reviewed the nurse practitioner's note and agree with the documented findings and plan of care. Lung sounds are positive for bibasilar rales. The findings and the impression was discussed with the patient. I attest to the documentation by the nurse practitioner. Time with Patient: Greater than 30
[2018-09-28 18:38] LABS: Iron Saturation 24.42 (12.00-45.00)
[2018-09-28 21:18] LABS: Glucose,Whole Blood 71 mg/dL (75-99)
[2018-09-28 23:20] LABS: Glucose,Whole Blood 88 mg/dL (75-99)
[2018-09-29 01:58] LABS: Glucose,Whole Blood 104 mg/dL (75-99)
[2018-09-29] MEDS ORDERED: PEG 3350-NA SULF,BICARB,CL/KCL 4,000 ML BOTTLE PO ONE (05:00)
[2018-09-29 06:54] LABS: Glucose,Whole Blood 73 mg/dL (75-99)
[2018-09-29] MEDS: ALBUTEROL NEBULIZED 2.5 MG/3 ML INHALATION PRN ×3 (07:36→20:37)
[2018-09-29] MEDS: BUDESONIDE 0.5 MG/2 ML NEBU INHALATION SCH ×2 (07:36→20:37)
[2018-09-29] MEDS: INSULIN ASPART (NovoLOG) 100 UNIT/ML VIAL SQ SCH ×7 (08:51→21:04)
[2018-09-29] MEDS: ATENOLOL 25 MG TAB PO SCH ×2 (09:32→21:04)
[2018-09-29] MEDS: DONEPEZIL 10 MG TAB PO SCH (09:32)
[2018-09-29] MEDS: ALLOPURINOL 100 MG TAB PO SCH (09:32)
[2018-09-29] MEDS: POTASSIUM CHLORIDE ER 10 MEQ TAB.ER.PRT PO SCH (09:32)
[2018-09-29] MEDS: FUROSEMIDE 40 MG TAB PO SCH (09:32)
[2018-09-29] MEDS: ATORVASTATIN 40 MG TAB PO SCH (09:32)
[2018-09-29] MEDS: OXYBUTYNIN CHLORIDE 5 MG TAB PO SCH ×2 (09:32→21:04)
[2018-09-29] MEDS: metFORMIN 500 MG TAB PO SCH ×2 (09:32→17:30)
[2018-09-29] MEDS: ACETAMINOPHEN TAB 500 MG TAB PO PRN ×2 (09:32→19:37)
[2018-09-29] MEDS: MAGNESIUM OXIDE 400 MG TAB PO SCH (09:33)
[2018-09-29] MEDS: SPIRONOLACTONE 25 MG TAB PO SCH (09:33)
[2018-09-29] MEDS: CALCIUM CARBONATE 500 MG CHEWABLE PO SCH (09:33)
[2018-09-29] MEDS: PANTOPRAZOLE 40 MG/10 ML VIAL IVP SCH (09:34)
[2018-09-29 09:44] LABS: Anion Gap 9 mmol/L; Blood Urea Nitrogen 15 mg/dL (7-17); Calcium 9.4 mg/dL (8.4-10.2); Carbon Dioxide 27 mmol/L (22-30); Chloride 105 mmol/L (98-107); Glucose 113 mg/dL (74-99); Magnesium 1.6 mg/dL (1.6-2.3); Potassium 4.9 mmol/L (3.5-5.1); Sodium 141 mmol/L (137-145)
[2018-09-29 11:40] LABS: Glucose,Whole Blood 106 mg/dL (75-99)
--- NOTE | 2018-09-29 12:10 | P.PN ---
Subjective Patient sitting at bedside chair. States improvement. Cleared by pulmonology for EGD and colonoscopy. The scheduled for this afternoon Objective - Vital Signs Vital signs: Vital Signs Temp 97.7 F 09/29/18 07:00 Pulse 78 09/29/18 11:22 Resp 16 09/29/18 07:00 BP 128/69 09/29/18 07:00 Pulse Ox 95 09/29/18 07:00 Intake & Output 09/28/18 09/29/18 09/29/18 18:59 06:59 18:59 Intake Total 1080 830 Balance 1080 830 Weight 98.293 kg 97.2 kg Intake: Oral 1080 830 Other: Voiding Method Toilet # Voids 4 1 # Bowel Movements 1 - Constitutional General appearance: Present: mild distress - EENT Eyes: Present: PERRLA Ears: bilateral: normal - Neck Neck: Present: normal ROM - Respiratory Respiratory: bilateral: diminished - Cardiovascular Rhythm: irregularly irregular Abnormal Heart Sounds: Present: systolic murmur - Gastrointestinal General gastrointestinal: Present: soft - Integumentary Integumentary: Present: normal - Neurologic Neurologic: Present: CNII-XII intact - Musculoskeletal Musculoskeletal: Present: generalized weakness - Psychiatric Psychiatric: Present: A&O x's 3, appropriate affect, intact judgment & insight - Labs CBC & Chem 7: 09/28/18 08:26 09/29/18 09:13 Labs: Abnormal Lab Results - Last 24 Hours (Table) 09/28/18 09/28/18 09/28/18 Range/Units 08:26 14:20 17:13 Retic Count 4.7 H (0.5-2.0) % Glucose (74-99) mg/dL POC Glucose (mg/dL) 115 H (75-99) mg/dL Ur Leukocyte Esterase Moderate H (Negative) Urine WBC 13 H (0-5) /hpf Ur Squamous Epith Cells 5 H (0-4) /hpf Amorphous Sediment Rare H (None) /hpf Urine Bacteria Occasional H (None) /hpf Urine Mucus Rare H (None) /hpf 09/28/18 09/29/18 09/29/18 Range/Units 21:17 01:57 06:47 Retic Count (0.5-2.0) % Glucose (74-99) mg/dL POC Glucose (mg/dL) 71 L 104 H 73 L (75-99) mg/dL Ur Leukocyte Esterase (Negative) Urine WBC (0-5) /hpf Ur Squamous Epith Cells (0-4) /hpf Amorphous Sediment (None) /hpf Urine Bacteria (None) /hpf Urine Mucus (None) /hpf 09/29/18 09/29/18 Range/Units 09:13 11:38 Retic Count (0.5-2.0) % Glucose 113 H (74-99) mg/dL POC Glucose (mg/dL) 106 H (75-99) mg/dL Ur Leukocyte Esterase (Negative) Urine WBC (0-5) /hpf Ur Squamous Epith Cells (0-4) /hpf Amorphous Sediment (None) /hpf Urine Bacteria (None) /hpf Urine Mucus (None) /hpf - Imaging and Cardiology Chest x-ray: report reviewed Assessment and Plan Plan: Assessment Gastrointestinal hemorrhage Anemia blood loss History of valve replacement Coronary disease with stent Atrial fibrillation COPD History of CVA/TIA Diabetes type 2 History of DVT Hypertension Hyperlipidemia Sleep apnea with CPAP at home Plan Continue consultation with gastroenterology EGD and colonoscopy Continue consultation with pulmonology as needed
[2018-09-29] MEDS: MAGNESIUM SULFATE-D5W PMX 1 GM in DEXTROSE/WATER 1 100ML.BAG IVPB SCH ×2 (13:20→17:48)
--- NOTE | 2018-09-29 13:37 | P.PN ---
Subjective Patient is seen in follow-up for acute kidney injury. GFR is back to baseline. Patient presented with anemia with concern for GI bleed. She scheduled to undergo EGD and colonoscopy this evening. No vomiting or diarrhea. Good urine output. Hemodynamically stable. Vital signs are stable. General: The patient appeared well nourished and normally developed. HEENT: Head exam is unremarkable. Neck is without jugular venous distension. LUNGS: Lungs are clear to auscultation and percussion. Breath sounds decreased. HEART: Rate and Rhythm are regular. First and second heart sounds normal. No murmurs, rubs or gallops. ABDOMEN: Abdominal exam reveals normal bowel sounds. Non-tender and non- distended. No evidence of peritonitis. EXTREMITITES: Trace edema. Objective - Vital Signs Vital signs: Vital Signs Temp 97.7 F 09/29/18 07:00 Pulse 78 09/29/18 11:22 Resp 16 09/29/18 07:00 BP 128/69 09/29/18 07:00 Pulse Ox 95 09/29/18 07:00 Intake & Output 09/28/18 09/29/18 09/29/18 18:59 06:59 18:59 Intake Total 1080 830 100 Balance 1080 830 100 Weight 98.293 kg 97.2 kg Intake: Intake, IV Titration 100 Amount Magnesium Sulfate-D5w Pmx 100 1 gm In Dextrose/Water 1 100ml.bag @ 100 mls/hr IVPB Q1H [facility] Rx#: [id number] Oral 1080 830 Other: Voiding Method Toilet # Voids 4 1 # Bowel Movements 1 - Labs CBC & Chem 7: 09/28/18 08:26 09/29/18 09:13 Labs: Abnormal Lab Results - Last 24 Hours (Table) 09/28/18 09/28/18 09/28/18 Range/Units 14:20 17:13 21:17 Glucose (74-99) mg/dL POC Glucose (mg/dL) 115 H 71 L (75-99) mg/dL Ur Leukocyte Esterase Moderate H (Negative) Urine WBC 13 H (0-5) /hpf Ur Squamous Epith Cells 5 H (0-4) /hpf Amorphous Sediment Rare H (None) /hpf Urine Bacteria Occasional H (None) /hpf Urine Mucus Rare H (None) /hpf 09/29/18 09/29/18 09/29/18 Range/Units 01:57 06:47 09:13 Glucose 113 H (74-99) mg/dL POC Glucose (mg/dL) 104 H 73 L (75-99) mg/dL Ur Leukocyte Esterase (Negative) Urine WBC (0-5) /hpf Ur Squamous Epith Cells (0-4) /hpf Amorphous Sediment (None) /hpf Urine Bacteria (None) /hpf Urine Mucus (None) /hpf 09/29/18 Range/Units 11:38 Glucose (74-99) mg/dL POC Glucose (mg/dL) 106 H (75-99) mg/dL Ur Leukocyte Esterase (Negative) Urine WBC (0-5) /hpf Ur Squamous Epith Cells (0-4) /hpf Amorphous Sediment (None) /hpf Urine Bacteria (None) /hpf Urine Mucus (None) /hpf Assessment and Plan Plan: Assessment: 1. Acute kidney injury mostly prerenal secondary to cardiorenal syndrome. Creatinine 1.09 on admission and is 0.75 today. No proteinuria on UA. 2. Systolic CHF with ejection fraction of 40-45% with moderate mitral regurgitation, moderate to severe tricuspid regurgitation and severe pulmonary hypertension. 3. Mild volume overload. 4. Insulin-dependent diabetes mellitus. 5. Acute blood loss anemia. Iron replete. Gastroenterology following. Scheduled for EGD and colonoscopy today. 6. Hypomagnesemia secondary to diuresis. Plan: Maintain Lasix 40 mg orally once daily. Avoid nephrotoxins. Repeat electrolytes in the morning. Replace magnesium. 2 g IV today.
[2018-09-29] MEDS: INSULIN DETEMIR (LEVEMIR) 100 UNIT/ML SYR SQ SCH (14:59)
[2018-09-29] MEDS ORDERED: MIDAZOLAM 2 MG/2 ML VIAL ONE (15:14)
[2018-09-29] MEDS ORDERED: IV FLUID CONTINUATION 500 ML IV ONE (15:14)
[2018-09-29] MEDS ORDERED: PROPOFOL 10 MG/ML 20 ML VIAL IV ONE (15:14)
[2018-09-29] MEDS ORDERED: fentaNYL (PF) 50 MCG/ML 2 ML AMP ONE (15:14)
--- NOTE | 2018-09-29 16:07 | P.PCN ---
Date of Procedure: 09/29/18 Description of Procedure: Brief history: 67-year-old female patient Dr. Mitchell with a past medical history of medicinal marijuana usage, chronic hypoxemic respiratory failure advanced COPD O2 dependent 4 L since 2011, pulmonary hypertension, JOSELITO CPAP, CVA, paroxysmal atrial fibrillation maintained on Eliquis, CAD with previous PCI stent, chronic congestive heart failure, diabetes, DVT, hypertension, hyperlipidemia, bovine aortic valve replacement 2009, [place] filter, and anxiety. Recently hospitalized earlier this month with acute on chronic hypoxemic was treated failure related to acute exacerbation of CHF with systolic dysfunction. Patient presents with reports of an abnormal outpatient CBC patient was told by her primary history that her hemoglobin was down by 3 points. Admission hemoglobin 9.7 previously 12.9 10 days ago. MCV 107. Moderate hyperchromasia. Platelet 277. White count 13.3. Presently hemoglobin is 9.1. INR 1.1. BUN 24. Creatinine 1.0. Last dose of Eliquis 2 days ago 09/26/18. No history of recent EGD. Last colonoscopy to her memory 7-10 years ago does not remember the results. Procedure performed: Esophagogastroduodenoscopy with biopsy Colonoscopy with polypectomy Estimated blood loss: Minimal. Preoperative diagnosis: Iron deficiency anemia Anesthesia: MAC Procedure: After informed consent was obtained from the patient was brought into the endoscopy unit and IV sedation was administered by anesthesia under continuous monitoring. Initially upper endoscopy was done. The Olympus GF 190 video endoscope was inserted inserted into the mouth and esophagus intubated without any difficulty and was gradually advanced into the stomach and duodenum and carefully examined. The bulb and second part of the duodenum appeared normal, with biopsies taken. The scope was then withdrawn into the stomach adequately insufflated with air and upon careful examination the antrum and body, cardia and fundus appeared normal, with mild scattered erythema of the antrum and body suggestive of mild gastritis biopsied. Large hiatal hernia containing almost the entire stomach The scope was then withdrawn into the esophagus. The GE junction was located at 35 cm to the incisors. It appeared regular with no erythema erosions or ulcerations. Rest of the esophagus appeared normal. Patient tolerated the procedure well. At this time the patient continued to remain sedation. Initial digital rectal examination was normal. Olympus CF 190 video colonoscope was then inserted into the rectum and gradually advanced to the cecum without any difficulty. Careful examination was performed as the scope was gradually being withdrawn. The prep was excellent. The cecum, ascending colon, transverse colon, descending colon, sigmoid colon and rectum appeared normal. Diminutive 3 mm transverse sessile polyp removed with cold forcep polypectomy. Diminutive 2 mm descending colon sessile polyp removed with cold forcep polypectomy. Mild scattered diverticulosis. Retroflexion was performed in the rectum and no lesions were noted, mild hemorrhoids seen. Patient tolerated the procedure well. Impression: 1. Large hiatal hernia containing a will see entire stomach. Mild gastritis antrum body, biopsied. Duodenal biopsies. 2. Diminutive transverse colon and descending colon polyps removed with cold forcep polypectomy. Mild diverticulosis. Mild internal hemorrhoids. Recommendations: Findings of this examination were discussed with the patient as well as her . Okay to resume Eliquis tomorrow. Await pathology from biopsies. We will order video capsule endoscopy for further sedation. Anticipate repeat colonoscopy in 5 years pending pathology from biopsies. Continue to monitor hemoglobin and hematocrit and transfuse as needed.
[2018-09-29 16:49] LABS: Glucose,Whole Blood 104 mg/dL (75-99)
[2018-09-29] MEDS ORDERED: SIMETHICONE 40 MG/0.6 ML DROPS 2,000 MG/30 ML BOTTLE PO ONE (17:20)
--- NOTE | 2018-09-29 17:43 | P.PN ---
Subjective Progress Note Date: 09/29/18 Principal diagnosis: Blood loss anemia, melena, bright red blood per rectum This is a 67-year-old white female patient with the multiple comorbidities including chronic congestive heart failure with systolic dysfunction, paroxysmal atrial fibrillation on chronic anticoagulation in the form of Eliquis, valvular heart disease status post aortic valve replacement for aortic stenosis, and patient has moderate mitral regurgitation and severe tricuspid regurgitation, pulmonary hypertension, advanced COPD with chronic hypoxemic respiratory failure, history of [place] filter insertion for history of DVT, hypertension, hyperlipidemia, obstructive sleep apnea on CPAP and prior history of CVA who we recently saw in consultation in the beginning of August for left- sided chest wall discomfort, and acute on chronic hypoxemic respiratory failure related to acute CHF exacerbation, and left basilar pneumonia could not completely be excluded, so patient was treated with combination of antibiotics, she was diuresed, FiO2 was down to her usual 4 L, and patient was discharged home in stable condition on 09/12/2018. After going home patient is a couple episodes of dark tarry stools, with some bright red blood in it, no hematemesis, and she saw her primary care physician Dr. Mitchell, and blood work was done showing 3 g drop in her hemoglobin from 12.9-9.6 from 09/15/2018 to 09/27/2018. Patient denies any fever or chills, denies cough or congestion, her breathing is at her baseline, she has chronic dyspnea with exertion, she wears home O2, she does have left-sided chest wall discomfort, which is reproducible, and according to the patient and the family that has been chronic in nature since her aortic valve replacement surgery back in 2009, and subsequently patient apparently had sustained some trauma from a fall to the left chest wall. Patient denied any lightheadedness or dizziness, denied any sternal pain. Admission lab work showed white blood cell count of 16.2, hemoglobin 9.6, INR is 1.1, her Eliquis has been held. Patient has been hemodynamically stable, GI service was consulted, and they're considering EGD and colonoscopy with possible small bowel capsule endoscopy. We're consulted for pulmonary clearance On 09/29/2018 patient seen in follow-up on medical surgical floor. He sitting up in the chair, in no acute distress, she is on her usual 4 L of oxygen a pulse ox of 95%, hemodynamically stable, no fever or chills, no complaints of worsening shortness of breath, and had completed her prep for colonoscopy, and she is passing some clear stools with some pink specks. No active bleeding, last hemoglobin from yesterday was 9.1, no repeat hemoglobin was done, BMP was done showing stable normal electrolytes and renal profile. No acute events ov ernight. Lung sounds are positive for basilar crackles Objective - Vital Signs Vital signs: Vital Signs Temp 97.5 F L 09/29/18 14:40 Pulse 105 H 09/29/18 14:40 Resp 16 09/29/18 14:40 BP 95/62 09/29/18 14:40 Pulse Ox 95 09/29/18 14:40 Intake & Output 09/28/18 09/29/18 09/29/18 18:59 06:59 18:59 Intake Total 1080 830 300 Balance 1080 830 300 Weight 98.293 kg 97.2 kg Intake: IV 200 Intake, IV Titration 100 Amount Magnesium Sulfate-D5w Pmx 100 1 gm In Dextrose/Water 1 100ml.bag @ 100 mls/hr IVPB Q1H [facility] Rx#: [id number] Oral 1080 830 Other: Voiding Method Toilet # Voids 4 1 # Bowel Movements 1 - Exam GENERAL EXAM: Alert, pleasant, 67-year-old white female on 4 L of oxygen,, comfortable in no apparent distress. HEAD: Normocephalic/atraumatic. EYES: Normal reaction of pupils, equal size. Conjunctiva pink, sclera white. NOSE: Clear with pink turbinates. THROAT: No erythema or exudates. NECK: No masses, no JVD, no thyroid enlargement, no adenopathy. CHEST: No chest wall deformity. Symmetrical expansion. LUNGS: Equal air entry with diminished breath sounds, and basilar crackles, rhonchi, no wheezes CVS: Regular rate and rhythm, normal S1 and S2, no gallops, no murmurs, no rubs ABDOMEN: Soft, nontender. No hepatosplenomegaly, normal bowel sounds, no guarding or rigidity. EXTREMITIES: No clubbing, nonpitting edema and cellulitis type changes and lower extremities, and lower extremities is warm, slightly tender, no cyanosis, 2+ pulses and upper and lower extremities. MUSCULOSKELETAL: Muscle strength and tone normal. SPINE: No scoliosis or deformity SKIN: No rashes CENTRAL NERVOUS SYSTEM: Alert and oriented -3. No focal deficits, tone is normal in all 4 extremities. PSYCHIATRIC: Alert and oriented -3. Appropriate affect. Intact judgment and insight. - Labs CBC & Chem 7: 09/28/18 08:26 09/29/18 09:13 Labs: Abnormal Lab Results - Last 24 Hours (Table) 09/28/18 09/29/18 09/29/18 Range/Units 21:17 01:57 06:47 Glucose (74-99) mg/dL POC Glucose (mg/dL) 71 L 104 H 73 L (75-99) mg/dL 09/29/18 09/29/18 09/29/18 Range/Units 09:13 11:38 16:47 Glucose 113 H (74-99) mg/dL POC Glucose (mg/dL) 106 H 104 H (75-99) mg/dL Assessment and Plan Plan: Assessment: #1. Acute GI blood loss anemia, had melanotic stools at home, with some visible bright red blood, no hematemesis #2. Mild leukocytosis, chest x-ray is without any focal infiltrates #3. Chronic hypoxemic respiratory failure related to COPD, and chronic congestive heart failure with systolic dysfunction #4. Chronic left-sided chest wall pain reproducible #5. Paroxysmal atrial fibrillation, patient was on anticoagulation with Eliquis, which is currently on hold #6. Valvular heart disease, status post aortic valve replacement in 2009 with bioprosthetic valve at [facility], for aortic valve stenosis, moderate mitral regurgitation and severe tricuspid regurgitation #7. Pulmonary hypertension right-sided pressures of 78 mmHg #8. Advanced COPD with chronic hypoxic rest or a failure #9. History of [place] filter in 2010 for history of DVT #10. Hypertension, hyperlipidemia #11. Obstructive sleep apnea on CPAP therapy #12. Her artery disease #13. History of CVA/TIA with memory impairment #14. His function #15. Former smoker, quit smoking 2009, on and off smoked for 50 years, a pack a day #16. Recent hospitalization for acute exacerbation of congestive heart failure and the possibility of left basilar pneumonia could not be excluded, so the patient was treated with the course of antibiotics Plan: Patient remains stable from pulmonary perspective, continue with nebulized bronchodilators on as-needed basis, acute events overnight, no active bleeding, patient will undergo EGD and colonoscopy this afternoon. No active issues from pulmonary perspective, we'll follow on as-needed basis. I performed a history & physical examination of the patient and discussed their management with my nurse practitioner, Susan Burton. I reviewed the nurse practitioner's note and agree with the documented findings and plan of care. Lung sounds are positive for bibasilar rales. The findings and the impression was discussed with the patient. I attest to the documentation by the nurse practitioner. Time with Patient: Less than 30
[2018-09-29 20:24] LABS: Glucose,Whole Blood 157 mg/dL (75-99)
[2018-09-29 21:21] VITALS: RESP 16
[2018-09-29] MEDS: ALPRAZolam 0.5 MG TAB PO PRN (22:41)
[2018-09-30] MEDS: ACETAMINOPHEN TAB 500 MG TAB PO PRN (05:02)
[2018-09-30 06:51] LABS: Glucose,Whole Blood 128 mg/dL (75-99)
[2018-09-30] MEDS: BUDESONIDE 0.5 MG/2 ML NEBU INHALATION SCH (08:05)
[2018-09-30] MEDS: ALBUTEROL NEBULIZED 2.5 MG/3 ML INHALATION PRN ×3 (08:05→15:25)
[2018-09-30] MEDS: INSULIN ASPART (NovoLOG) 100 UNIT/ML VIAL SQ SCH ×5 (08:33→17:06)
[2018-09-30] MEDS: INSULIN DETEMIR (LEVEMIR) 100 UNIT/ML SYR SQ SCH (08:35)
[2018-09-30] MEDS: PANTOPRAZOLE 40 MG/10 ML VIAL IVP SCH (08:40)
[2018-09-30] MEDS: FUROSEMIDE 40 MG TAB PO SCH (08:41)
[2018-09-30] MEDS: OXYBUTYNIN CHLORIDE 5 MG TAB PO SCH (08:41)
[2018-09-30] MEDS: DONEPEZIL 10 MG TAB PO SCH (08:41)
[2018-09-30] MEDS: metFORMIN 500 MG TAB PO SCH ×2 (08:41→17:09)
[2018-09-30] MEDS: ATENOLOL 25 MG TAB PO SCH (08:41)
[2018-09-30] MEDS: CALCIUM CARBONATE 500 MG CHEWABLE PO SCH (08:41)
[2018-09-30] MEDS: ALLOPURINOL 100 MG TAB PO SCH (08:41)
[2018-09-30] MEDS: ATORVASTATIN 40 MG TAB PO SCH (08:41)
[2018-09-30] MEDS: SPIRONOLACTONE 25 MG TAB PO SCH (08:41)
[2018-09-30] MEDS: MAGNESIUM OXIDE 400 MG TAB PO SCH (08:42)
[2018-09-30] MEDS: POTASSIUM CHLORIDE ER 10 MEQ TAB.ER.PRT PO SCH (08:42)
[2018-09-30 11:37] LABS: Glucose,Whole Blood 139 mg/dL (75-99)
--- NOTE | 2018-09-30 13:35 | P.PN ---
Subjective Progress Note Date: 09/30/18 Principal diagnosis: GI bleed anemia Status post EGD colonoscopy for evaluation of anemia and blood tinged bowel movements findings a large hiatal hernia diminutive transverse colon and descending colon polyps removed with polypectomy. Mild internal hemorrhoids. Mild colonic diverticulosis. Capsule study completed results pending. Hemoglobin 2 days ago 9.1. No active GI bleeding. Tolerating diet. Feels well. Objective - Vital Signs Vital signs: Vital Signs Temp 98.0 F 09/30/18 07:21 Pulse 100 09/30/18 08:21 Resp 16 09/30/18 00:55 BP 98/63 09/30/18 07:21 Pulse Ox 95 09/30/18 07:21 Intake & Output 09/29/18 09/30/18 09/30/18 18:59 06:59 18:59 Intake Total 300 940 Balance 300 940 Weight 97.3 kg Intake: IV 200 Intake, IV Titration 100 Amount Magnesium Sulfate-D5w Pmx 100 1 gm In Dextrose/Water 1 100ml.bag @ 100 mls/hr IVPB Q1H [facility] Rx#: [id number] Oral 940 Other: Voiding Method Toilet # Voids 2 - Exam General appearance: The patient is alert, oriented, in no acute distress. HET: Head is normocephalic and atraumatic. Pupils are equal and reactive. Oropharynx is clear without lesions. Neck: Supple without lymphadenopathy. Trachea midline. Heart: S1 S2. Regular rate and rhythm. Lungs: No crackles or wheezes are heard. Abdomen: Soft, nontender, nondistended with bowel sounds. No peritoneal signs. No palpable organomegaly or masses. Extremities: Normal skin color and turgor. No cyanosis, rash, ulceration, clubbing, or edema. Radial and pedal pulses are 2/4 bilaterally. Neurological: No focal deficits. Strength and sensation are grossly intact. - Labs CBC & Chem 7: 09/28/18 08:26 09/29/18 09:13 Labs: Abnormal Lab Results - Last 24 Hours (Table) 09/29/18 09/29/18 09/29/18 Range/Units 11:38 16:47 20:22 POC Glucose (mg/dL) 106 H 104 H 157 H (75-99) mg/dL 09/30/18 Range/Units 06:50 POC Glucose (mg/dL) 128 H (75-99) mg/dL Assessment and Plan (1) Anemia Narrative/Plan: Status post EGD colonoscopy large hiatal hernia polypectomy 2 colonic d iverticulosis internal hemorrhoids. Small bowel study completed results are pending. Current Visit: Yes Status: Acute Code(s): D64.9 - ANEMIA, UNSPECIFIED SNOMED Code(s): 711111477 (2) Advanced COPD Current Visit: Yes Status: Acute Code(s): J44.9 - CHRONIC OBSTRUCTIVE PULMONARY DISEASE, UNSPECIFIED SNOMED Code(s): 19260082 (3) Paroxysmal A-fib Current Visit: Yes Status: Acute Code(s): I48.0 - PAROXYSMAL ATRIAL FIBRILLATION SNOMED Code(s): 988072855 (4) Chronic CHF Current Visit: Yes Status: Acute Code(s): I50.9 - HEART FAILURE, UNSPECIFIED SNOMED Code(s): 82440595 (5) Oxygen dependent Current Visit: Yes Status: Acute Code(s): Z99.81 - DEPENDENCE ON SUPPLEMENTAL OXYGEN SNOMED Code(s): 823380534930 Plan: Small bowel capsule results pending if negative no further workup from a GI standpoint. Discharge per medicine. Continue CBC monitoring. Diet as tolerat ed. Return to office 2-3 weeks. Assessment and plan a care discussed with Dr. Can
[2018-09-30 14:47] VITALS: BP 103/58; TEMP 99.1
[2018-09-30 15:38] VITALS: PULSE 87
[2018-09-30 15:48] LABS: Anisocytosis Slight; Basophils % (A) 0 %; Eosinophils # (A) 0.3 k/uL (0-0.7); Eosinophils % (A) 2 %; HCT 32.8 % (34.0-46.0); HGB 10.5 gm/dL (11.4-16.0); Hypochromasia Slight; Lymphocytes # (A) 2.1 k/uL (1.0-4.8); Lymphocytes % (A) 18 %; MCH 34.7 pg (25.0-35.0); MCV 108.5 fL (80.0-100.0); Macrocytosis Marked; Mean Platelet Volume 7.6; Monocytes # (A) 0.6 k/uL (0-1.0); Monocytes % (A) 5 %; Neutrophils # (A) 8.6 k/uL (1.3-7.7); Neutrophils % (A) 73 %; Platelet Count 301 k/uL (150-450); RBC 3.02 m/uL (3.80-5.40); RDW 16.7 % (11.5-15.5); WBC 11.8 k/uL (3.8-10.6)
[2018-09-30 16:08] LABS: Glucose,Whole Blood 130 mg/dL (75-99)
[2018-09-30 16:09] LABS: Poikilocytosis (M) Present; Polychromasia Present
== END 2018-09-30 18:23 | disposition home or self-care (01) | DRG 378 ==
LOC: EC 12:21 → 4MS4W 14:23 → 4SSUR 15:15 → OBSVTOIN 09-28 08:33
PROVIDERS: ADMIT Family Medicine; ATTEND Family Medicine
PROC: 0DBL8ZZ Excision of Transverse Colon, Via Natural or Artificial Opening Endoscopic (ICD-10-PCS; principal; 2018-09-29 08:40)
PROC: 0DBM8ZZ Excision of Descending Colon, Via Natural or Artificial Opening Endoscopic (ICD-10-PCS; principal; 2018-09-29 08:40)
PROC: 0DB98ZX Excision of Duodenum, Via Natural or Artificial Opening Endoscopic, Diagnostic (ICD-10-PCS; principal; 2018-09-29 08:40)
PROC: 0DB78ZX Excision of Stomach, Pylorus, Via Natural or Artificial Opening Endoscopic, Diagnostic (ICD-10-PCS; principal; 2018-09-29 08:40)
DX: K29.71 Gastritis, unspecified, with bleeding (principal); D62 Acute posthemorrhagic anemia; I13.0 Hypertensive heart and chronic kidney disease with heart failure and stage 1 through stage 4 chronic kidney disease, or unspecified chronic kidney disease; I48.1 Persistent atrial fibrillation; I50.22 Chronic systolic (congestive) heart failure; J96.11 Chronic respiratory failure with hypoxia; N17.9 Acute kidney failure, unspecified; K57.31 Diverticulosis of large intestine without perforation or abscess with bleeding; D12.3 Benign neoplasm of transverse colon; D12.4 Benign neoplasm of descending colon; D72.829 Elevated white blood cell count, unspecified; E11.22 Type 2 diabetes mellitus with diabetic chronic kidney disease; E78.5 Hyperlipidemia, unspecified; E83.42 Hypomagnesemia; F41.9 Anxiety disorder, unspecified; G47.33 Obstructive sleep apnea (adult) (pediatric); I08.3 Combined rheumatic disorders of mitral, aortic and tricuspid valves; I25.10 Atherosclerotic heart disease of native coronary artery without angina pectoris; I25.2 Old myocardial infarction; I27.20 Pulmonary hypertension, unspecified; I48.0 Paroxysmal atrial fibrillation; I48.2 Chronic atrial fibrillation; J44.9 Chronic obstructive pulmonary disease, unspecified; K44.9 Diaphragmatic hernia without obstruction or gangrene; K64.8 Other hemorrhoids; N18.9 Chronic kidney disease, unspecified; T50.2X5A Adverse effect of carbonic-anhydrase inhibitors, benzothiadiazides and other diuretics, initial encounter; Z79.01 Long term (current) use of anticoagulants; Z79.4 Long term (current) use of insulin; Z79.899 Other long term (current) drug therapy; Z86.718 Personal history of other venous thrombosis and embolism; Z86.73 Personal history of transient ischemic attack (TIA), and cerebral infarction without residual deficits; Z87.891 Personal history of nicotine dependence; Z90.710 Acquired absence of both cervix and uterus; Z95.3 Presence of xenogenic heart valve; Z95.5 Presence of coronary angioplasty implant and graft; Z99.81 Dependence on supplemental oxygen; Z88.5 Allergy status to narcotic agent; Z99.89 Dependence on other enabling machines and devices; Z88.0 Allergy status to penicillin
CPT/HCPCS: 36415; 43239; 45380; 71046; 80048; 80053; 81001; 82607; 82728; 82746; 83036; 83540; 83550; 83690; 83735; 84484; 85025; 85027; 85045; 85610; 85730; 86850; 86900; 86901; 88305; 91110; 94640; 94760; 99285

== ENCOUNTER 2018-11-03 08:27 | Inpatient (IN) | payer MEDICARE ==
[2018-11-03] MEDS ORDERED: SODIUM CHLORIDE 0.9% 500 ML 500 ML IV STA (09:12)
[2018-11-03] MEDS ORDERED: IPRATROPIUM-ALBUTEROL 3 ML NEB INHALATION STA (09:13)
[2018-11-03] MEDS ORDERED: DEXAMETHASONE SOD PHOSPHATE 10 MG/ML 1 ML VIAL IV STA (09:13)
--- NOTE | 2018-11-03 09:17 | ED ---
General Adult HPI - General Chief complaint: Shortness of Breath Stated complaint: SOB Time Seen by Provider: 11/03/18 08:45 Source: patient Mode of arrival: wheelchair Limitations: no limitations - History of Present Illness Initial comments: Dictation was produced using [employer] dictation software. please excuse any grammatical, word or spelling errors. Chief Complaint: 67-year-old female past medical history of oxygen dependence, asthma, COPD presents with respiratory distress. History of Present Illness: Patient is 67-year-old female she presents today respiratory distress she was seen at her primary care physician's office today. She was directed to the emergency department. Patient has a history of COPD and asthma exacerbation her post splitter is Dr. Flores. Patient reports that this morning she became acutely short of breath. Her symptoms started over the last couple days. She states she hasn't been feeling well. She reports that people in the household were sick. Patient also complains of some congestion to the left naris. She has a history of deviated septum. Denies any constitutional symptoms. Patient normally takes breathing treatments regularly. This morning and yesterday she did not take her breathing treatments because she did not feel well. The ROS documented in this emergency department record has been reviewed and confirmed by me. Those systems with pertinent positive or negative responses have been documented in the HPI. All other systems are other negative and/or noncontributory. PHYSICAL EXAM: General Impression: Alert and oriented x3, dyspneic, pale HEENT: Normocephalic atraumatic, extra-ocular movements intact, pupils equal and reactive to light bilaterally, mucous membranes moist. Cardiovascular: Heart regular rate and rhythm, S1&S2 audible, no murmurs, rubs or gallops Chest: Crackles to the left posterior lung base Abdomen: Bowel sounds present, abdomen soft, non-tender, non-distended, no organomegaly Musculoskeletal: Pulses present and equal in all extremities, no peripheral edema Motor: no focal deficits noted Neurological: CN II-XII grossly intact, no focal motor or sensory deficits noted Skin: Intact with no visualized rashes Psych: Normal affect and mood ED course: Patient is 67-year-old female presents with acute respiratory distress. All signs upon arrival shows 86% on 4 L nasal cannula. Patient is oxygen dependent. She normally worse 4 L of nasal cannula regularly. Patient is shows some signs of respiratory distress or family reports that this is patient's baseline. Patient offered BiPAP initially however she refused saying that she feels okay at the moment. Patient oxygenating well with 4 L via cannula. Patient did have a dried blood in her left naris that was removed using a Q-tip. Laboratory evaluation obtained. Leukocytosis of 11.7. This is likely secondary to steroid administration. This is above patient's baseline. Hemoglobin 9.9 patient's baseline. Rest of CBC is patient's baseline. Coag panel unremarkable. Metabolic panel is unremarkable. She does however have increased again to creatinine ratio likely secondary to dehydration. Troponin elevated at 0.036. Patient does have baseline elevated troponin. This appears to be a baseline for patient. Blood gas shows CO2 47. Chest x-ray obtained sh owing cardiomegaly. Given patient's clinical presentation and her respiratory distress is likely multifactorial secondary to COPD versus asthma exacerbation patient given breathing treatment and steroids. He is also a component of heart failure with a brain natruretic peptide in the 6000s. Given patient's low pressure she is started on gentle hydration. We will have patient admitted to Dr. Mitchell's service. Dr. Viri Mitchell's physician phlebotomy lab assistant. Cardiology will place on consultation. Patient given aspirin. Given the patient does not have any chest symptoms heparin being withheld at this time. Serial troponins ordered. EKG interpretation: Ventricular rate 93, normal sinus rhythm, UT interval 202, QS 119, QTC 447. No UT prolongation, no QTC prolongation, no ST or T-wave changes noted. EKG compared to 09/06/2018 showing no changes. Overall, this EKG is unremarkable - Related Data Home Medications Medication Instructions Recorded Confirmed Apixaban [Eliquis] 5 mg PO BID 03/10/16 11/03/18 Atorvastatin [Lipitor] 40 mg PO DAILY 03/10/16 11/03/18 metFORMIN HCL [Glucophage] 500 mg PO BID 03/10/16 11/03/18 Allopurinol [Zyloprim] 100 mg PO DAILY 03/30/18 11/03/18 Oxybutynin Chloride [Ditropan] 5 mg PO BID 03/30/18 11/03/18 Donepezil [Aricept] 10 mg PO DAILY 09/06/18 11/03/18 Albuterol Nebulized [Ventolin 2.5 mg INHALATION RT-Q4H PRN 09/27/18 11/03/18 Nebulized] Budesonide [Pulmicort] 0.5 mg INHALATION RT-BID 09/27/18 11/03/18 ALPRAZolam [Xanax] 0.5 mg PO TID PRN 11/03/18 11/03/18 Atenolol 25 mg PO PC-SUPPER 11/03/18 11/03/18 Atenolol [Tenormin] 75 mg PO DAILY 11/03/18 11/03/18 INSULIN LISPRO (humaLOG) [humaLOG] 5 unit SQ AC-TID 11/03/18 11/03/18 Insulin Detemir (Levemir) [Levemir] 20 unit PO DAILY 11/03/18 11/03/18 Ranitidine HCl [Zantac] 150 mg PO DAILY 11/03/18 11/03/18 Previous Rx's Medication Instructions Recorded Spironolactone [Aldactone] 25 mg PO DAILY #30 tab 09/12/18 Allergies Allergy/AdvReac Type Severity Reaction Status Date / Time codeine Allergy "made me Verified 11/03/18 10:07 feel antsy" Penicillins Allergy Swelling Verified 11/03/18 10:07 Review of Systems ROS Statement: Those systems with pertinent positive or pertinent negative responses have been documented in the HPI. ROS Other: All systems not noted in ROS Statement are negative. Past Medical History Past Medical History: Atrial Fibrillation, Coronary Artery Disease (CAD), Heart Failure, COPD, CVA/TIA, Diabetes Mellitus, Deep Vein Thrombosis (DVT), Hyperlipidemia, Hypertension, Pneumonia, Sleep Apnea/CPAP/BIPAP Additional Past Medical History / Comment(s): O2 USE NEEDED VIA NC AT 4L, HX OF ANEMIA, recent admit august 2018 for pneumonia and CHF. Last Myocardial Infarction Date:: 2002 History of Any Multi-Drug Resistant Organisms: None Reported Past Surgical History: Cardiac Valve Replacement, Heart Catheterization With Stent, Hysterectomy, Orthopedic Surgery Additional Past Surgical History / Comment(s): AORTIC VALVE (BOVINE), WESLY FILTER, ZOIE CATARACT SX, HEART STENT X2 Past Anesthesia/Blood Transfusion Reactions: Previous Problems w/ Anesthesia Additional Past Anesthesia/Blood Transfusion Reaction / Comment(s): TROUBLE WAKING UP IN PAST Date of Last Stent Placement:: 2004 Past Psychological History: Anxiety Smoking Status: Former smoker Past Alcohol Use History: None Reported Past Drug Use History: Marijuana - Past Family History Father Family Medical History: Cancer Sister(s) Family Medical History: Cancer Additional Family Medical History / Comment(s): BREAST Mother Family Medical History: Vascular Disorder Additional Family Medical History / Comment(s): Mother of ruptured aortic aneurysm. General Exam Limitations: no limitations Course Vital Signs 11/03/18 11/03/18 11/03/18 08:30 09:09 09:31 Temperature 98.0 F Pulse Rate 90 93 93 Respiratory 18 22 Rate Blood Pressure 104/52 104/69 O2 Sat by Pulse 86 L 98 Oximetry 11/03/18 11/03/18 09:42 11:03 Temperature Pulse Rate 94 93 Respiratory 18 Rate Blood Pressure 90/55 O2 Sat by Pulse 100 Oximetry Medical Decision Making - Lab Data Result diagrams: 11/03/18 08:50 11/03/18 08:50 Lab Results 11/03/18 11/03/18 11/03/18 Range/Units 08:50 08:50 08:50 WBC 11.7 H (3.8-10.6) k/uL RBC 3.11 L (3.80-5.40) m/uL Hgb 9.9 L (11.4-16.0) gm/dL Hct 33.0 L (34.0-46.0) % MCV 105.8 H (80.0-100.0) fL MCH 31.9 (25.0-35.0) pg MCHC 30.1 L (31.0-37.0) g/dL RDW 15.7 H (11.5-15.5) % Plt Count 285 (150-450) k/uL Neutrophils % (Manual) 67 % Lymphocytes % (Manual) 24 % Monocytes % (Manual) 9 % Neutrophils # (Manual) 7.84 H (1.3-7.7) k/uL Lymphocytes # (Manual) 2.81 (1.0-4.8) k/uL Monocytes # (Manual) 1.05 H (0-1.0) k/uL Nucleated RBCs 0 (0-0) /100 WBC Manual Slide Review Performed Polychromasia Present Hypochromasia Moderate Anisocytosis (manual) Present Macrocytosis Moderate PT (9.0-12.0) sec INR (<1.2) APTT (22.0-30.0) sec VBG pH (7.31-7.41) VBG pCO2 (37-51) mmHg VBG HCO3 (24-28) mmol/L Sodium 140 (137-145) mmol/L Potassium 3.7 (3.5-5.1) mmol/L Chloride 95 L (98-107) mmol/L Carbon Dioxide 33 H (22-30) mmol/L Anion Gap 12 mmol/L BUN 73 H (7-17) mg/dL Creatinine 1.43 H (0.52-1.04) mg/dL Est GFR (CKD-EPI)AfAm 43 (>60 ml/min/1.73 sqM) Est GFR (CKD-EPI)NonAf 37 (>60 ml/min/1.73 sqM) Glucose 197 H (74-99) mg/dL Calcium 9.8 (8.4-10.2) mg/dL Magnesium 2.3 (1.6-2.3) mg/dL Total Bilirubin 1.2 (0.2-1.3) mg/dL AST 34 (14-36) U/L ALT 30 (9-52) U/L Alkaline Phosphatase 183 H (38-126) U/L Troponin I (0.000-0.034) ng/mL NT-Pro-B Natriuret Pep 6630 pg/mL Total Protein 7.3 (6.3-8.2) g/dL Albumin 4.2 (3.5-5.0) g/dL 11/03/18 11/03/18 11/03/18 Range/Units 08:50 08:50 09:35 WBC (3.8-10.6) k/uL RBC (3.80-5.40) m/uL Hgb (11.4-16.0) gm/dL Hct (34.0-46.0) % MCV (80.0-100.0) fL MCH (25.0-35.0) pg MCHC (31.0-37.0) g/dL RDW (11.5-15.5) % Plt Count (150-450) k/uL Neutrophils % (Manual) % Lymphocytes % (Manual) % Monocytes % (Manual) % Neutrophils # (Manual) (1.3-7.7) k/uL Lymphocytes # (Manual) (1.0-4.8) k/uL Monocytes # (Manual) (0-1.0) k/uL Nucleated RBCs (0-0) /100 WBC Manual Slide Review Polychromasia Hypochromasia Anisocytosis (manual) Macrocytosis PT 14.9 H (9.0-12.0) sec INR 1.5 H (<1.2) APTT 26.0 (22.0-30.0) sec VBG pH 7.43 H (7.31-7.41) VBG pCO2 47 (37-51) mmHg VBG HCO3 31 H (24-28) mmol/L Sodium (137-145) mmol/L Potassium (3.5-5.1) mmol/L Chloride (98-107) mmol/L Carbon Dioxide (22-30) mmol/L Anion Gap mmol/L BUN (7-17) mg/dL Creatinine (0.52-1.04) mg/dL Est GFR (CKD-EPI)AfAm (>60 ml/min/1.73 sqM) Est GFR (CKD-EPI)NonAf (>60 ml/min/1.73 sqM) Glucose (74-99) mg/dL Calcium (8.4-10.2) mg/dL Magnesium (1.6-2.3) mg/dL Total Bilirubin (0.2-1.3) mg/dL AST (14-36) U/L ALT (9-52) U/L Alkaline Phosphatase (38-126) U/L Troponin I 0.036 H* (0.000-0.034) ng/mL NT-Pro-B Natriuret Pep pg/mL Total Protein (6.3-8.2) g/dL Albumin (3.5-5.0) g/dL Disposition Clinical Impression: Dyspnea Disposition: ADMITTED IP TO THIS [facility] Condition: Fair Referrals: Sina Mitchell MD [Primary Care Provider] - 1-2 days Decision Time: 11:24
--- NOTE | 2018-11-03 09:31 | XR ---
EXAMINATION TYPE: XR chest 2V DATE OF EXAM: 11/03/2018 COMPARISON: 09/28/2018 INDICATION: COPD, short of breath TECHNIQUE: Frontal and lateral views of the chest are obtained. FINDINGS: The heart size is probably prominent, stable from prior. The pulmonary vasculature is normal. The lungs are clear. There is a moderate size hiatal hernia is present with air-fluid levels. Sternotomy wires are present from previous cardiac valve surgery. There is epicardial leads remain pr esent which would contraindicate MRI. IMPRESSION: 1. Mild cardiomegaly. 2. Moderate size hiatal hernia.
[2018-11-03 09:50] LABS: INR 1.5 (<1.2); Prothrombin Time 14.9 sec (9.0-12.0)
[2018-11-03 09:51] LABS: HGB 9.9 gm/dL (11.4-16.0); Hypochromasia Moderate; MCH 31.9 pg (25.0-35.0); MCHC 30.1 g/dL (31.0-37.0); MCV 105.8 fL (80.0-100.0); Macrocytosis Moderate; Mean Platelet Volume 7.9; Platelet Count 285 k/uL (150-450); RBC 3.11 m/uL (3.80-5.40); RDW 15.7 % (11.5-15.5); WBC 11.7 k/uL (3.8-10.6)
[2018-11-03 09:52] LABS: Albumin 4.2 g/dL (3.5-5.0); Calcium 9.8 mg/dL (8.4-10.2); Magnesium 2.3 mg/dL (1.6-2.3); Potassium 3.7 mmol/L (3.5-5.1); Total Bilirubin 1.2 mg/dL (0.2-1.3); Total Protein 7.3 g/dL (6.3-8.2)
[2018-11-03 09:57] LABS: VBG PH 7.43 (7.31-7.41)
[2018-11-03 10:09] LABS: Lymphocytes # (M) 2.81 k/uL (1.0-4.8); Monocytes # (M) 1.05 k/uL (0-1.0); Neutrophils # (M) 7.84 k/uL (1.3-7.7); Neutrophils % (M) 67 %; Nucleated Red Blood Cells 0 /100 WBC (0-0); Total Cells Counted 100
[2018-11-03 10:10] LABS: Polychromasia Present
[2018-11-03 10:12] LABS: Anisocytosis (M) Present
[2018-11-03] MEDS ORDERED: SODIUM CHLORIDE 0.9% 1,000 ML IV STA (10:56)
[2018-11-03] MEDS ORDERED: SODIUM CHLORIDE 0.9% 1,000 ML IV SCH (11:30)
[2018-11-03] MEDS ORDERED: FUROSEMIDE 10 MG/ML 4 ML VIAL IV STA (11:30)
[2018-11-03] MEDS: ASPIRIN 81 MG PO STA ×2 (11:44→14:16)
[2018-11-03 13:50] LABS: Glucose,Whole Blood 188 mg/dL (75-99)
--- NOTE | 2018-11-03 14:16 | P.CNPUL ---
History of Present Illness Consult date: 11/03/18 Requesting physician: Sina Mitchell Reason for consult: dyspnea Chief complaint: Shortness of breath, weakness History of present illness: This is a very pleasant 67-year-old female patient who follows with Dr. Sina Mitchell is her primary care physician. She has a history of chronic systolic co ngestive heart failure, paroxysmal atrial fibrillation on anticoagulations informant Eliquis, valvular heart disease status post aortic valve replacement for aortic stenosis, moderate mitral regurgitation and severe tricuspid regurgitation, pulmonary hypertension, DVT status post Vikram filter p lacement, hypertension, hyperlipidemia, prior CVA, obstructive sleep apnea on CPAP.. She also has a history of advanced chronic obstructive pulmonary disease from previous chronic tobacco dependence with chronic hypoxemic respiratory failure on 4 L oxygen in the outpatient setting. She was recently seen by our group here on 09/28/2018 for blood loss anemia, melena and bright red blood per rectum. EGD had revealed a large hiatal hernia containing a large portion of the stomach. There is mild gastritis which was biopsied. Duodenal biopsies. Colonoscopy revealed diminutive transverse colon and descending colon polyps removed with cold forceps polypectomy. Mild diverticulosis. She was cleared to resume Eliquis at that time. She represented here to the emergency room this morning from her PCPs office after developing profound weakness and shortness of breath. Chest x-ray revealed mild cardiomegaly, mild fluid volume overload, moderate hiatal hernia. Labs revealed a white count of 11.7. Hemoglobin 9.9. INR 1.5. Creatinine 1.43. Troponin 0.036. ProBNP 6630. She is seen today in consultation on the selective care unit. She is currently awake and alert resting comfortably in bed. She is quite pale and weak. 18 O2 saturations in the 90s on 4 L/m per nasal cannula. Currently afebrile. Hemodynamically stable. Review of Systems REVIEW OF SYSTEMS: CONSTITUTIONAL: Denies any recent significant weight loss or weight gain. EYES: Denies change in vision. EARS, NOSE, MOUTH, THROAT: Denies headaches, denies sore throat. CARDIOVASCULAR: Denies chest pain, palpitations or syncopal episodes. RESPIRATORY: Positive for shortness of breath, cough, congestion no hemoptysis. GASTROINTESTINAL: Denies change in appetite, denies abdominal pain GENITOURINARY: Denies hematuria, denies infections. MUSKULOSKELETAL: Denies pain, denies swelling. INTEGUMENTARY: Denies rash, denies eczema. NEUROLOGICAL: Denies recent memory loss, no recent seizure activity. PSYCHIATRIC: Positive anxiety, denies depression. HEMATOLOGIC/LYMPHATIC: Recent admission for anemia, denies enlarged lymph nodes. Past Medical History Past Medical History: Atrial Fibrillation, Coronary Artery Disease (CAD), Heart Failure, COPD, CVA/TIA, Diabetes Mellitus, Deep Vein Thrombosis (DVT), GERD/Reflux, Hyperlipidemia, Hypertension, Myocardial Infarction (CT), Osteoarthritis (OA), Pneumonia, Renal Disease, Respiratory Disorder, Sleep Apnea /CPAP/BIPAP Additional Past Medical History / Comment(s): Pt recently admitted to [facility] on 09/27/18 with lower GI bleed, acute blood loss anemia, asymptomatic abnormal UA, chronic mild leukocytosis. Other HX: Moderate mitral valve regurgitation, severe tricuspid regurgitation, paroxysmal Afib, cardiomyopathy, murmur, advanced COPD with chronic hypoxic respiratory failure, pulmonary htn, home oxygen at 4L/NC ATC, CVA without residual, CKD, possible dementia, anemia, has received iron infusions in past, chronic low back pain, arthritis in multiple joints, IDDM type II, JOSELITO with bipap use, hiatal hernia, sinus problems, constipation. Last Myocardial Infarction Date:: 2002 History of Any Multi-Drug Resistant Organisms: None Reported Past Surgical History: Cardiac Valve Replacement, Heart Catheterization With Stent, Hysterectomy, Orthopedic Surgery Additional Past Surgical History / Comment(s): 09/29/18 small bowel capsule, PCI with stents (2), 2009 aortic valve replaced-bovine, vikram filter, bilateral cataract removal/lens implants, septoplasty. Past Anesthesia/Blood Transfusion Reactions: Previous Problems w/ Anesthesia Additional Past Anesthesia/Blood Transfusion Reaction / Comment(s): TROUBLE WAKING UP IN PAST Date of Last Stent Placement:: 2002 Past Psychological History: Anxiety Additional Psychological History / Comment(s): Pt resides with her spouse and daughter and grandchild. She uses a rolator walker. She has home oxygen and a nebulizer. She no longer drives, her spouse or family drive her to [employer], Smoking Status: Former smoker Past Alcohol Use History: None Reported Additional Past Alcohol Use History / Comment(s): SMOKED 1PPD OR MORE SINCE AGE 11 (1963) QUIT APPROX 2010 Past Drug Use History: Marijuana Additional Drug Use History / Comment(s): patient has marijuana pen (liquid, by mouth) that she uses 2-3 times daily, prescribled by dr graham. - Past Family History Father Family Medical History: Cancer Sister(s) Family Medical History: Cancer Additional Family Medical History / Comment(s): BREAST Mother Family Medical History: Vascular Disorder Additional Family Medical History / Comment(s): Mother of ruptured aortic aneurysm. Medications and Allergies Home Medications Medication Instructions Recorded Confirmed Type Apixaban [Eliquis] 5 mg PO BID 03/10/16 11/03/18 History Atorvastatin [Lipitor] 40 mg PO DAILY 03/10/16 11/03/18 History metFORMIN HCL [Glucophage] 500 mg PO BID 03/10/16 11/03/18 History Allopurinol [Zyloprim] 100 mg PO DAILY 03/30/18 11/03/18 History Oxybutynin Chloride [Ditropan] 5 mg PO BID 03/30/18 11/03/18 History Donepezil [Aricept] 10 mg PO DAILY 09/06/18 11/03/18 History Spironolactone [Aldactone] 25 mg PO DAILY #30 tab 09/12/18 11/03/18 Rx Albuterol Nebulized [Ventolin 2.5 mg INHALATION RT-Q4H PRN 09/27/18 11/03/18 History Nebulized] Budesonide [Pulmicort] 0.5 mg INHALATION RT-BID 09/27/18 11/03/18 History ALPRAZolam [Xanax] 0.5 mg PO TID PRN 11/03/18 11/03/18 History Atenolol 25 mg PO PC-SUPPER 11/03/18 11/03/18 History Atenolol [Tenormin] 75 mg PO DAILY 11/03/18 11/03/18 History INSULIN LISPRO (humaLOG) [humaLOG] 5 unit SQ AC-TID 11/03/18 11/03/18 History Insulin Detemir (Levemir) [Levemir] 20 unit PO DAILY 11/03/18 11/03/18 History Ranitidine HCl [Zantac] 150 mg PO DAILY 11/03/18 11/03/18 History Allergies Allergy/AdvReac Type Severity Reaction Status Date / Time codeine Allergy "made me Verified 11/03/18 10:07 feel antsy" Penicillins Allergy Swelling Verified 11/03/18 10:07 Physical Exam Vitals: Vital Signs Temp Pulse Pulse Resp BP BP Pulse Ox 11/03/18 13:25 97 F L 96 24 122/72 92 L 11/03/18 11:18 93 18 121/81 98 11/03/18 11:03 93 18 90/55 100 11/03/18 09:42 94 11/03/18 09:31 93 11/03/18 09:09 93 22 104/69 98 11/03/18 08:30 98.0 F 90 18 104/52 86 L Intake and Output 11/02/18 11/03/18 11/03/18 22:59 06:59 14:59 Other: Weight 97.522 kg GENERAL EXAM: Pale, weak appearing 67-year-old female patient. On 4 L nasal cannula. HEAD: Normocephalic. EYES: Normal reaction of pupils, equal size. NOSE: Clear with pink turbinates. THROAT: No erythema or exudates. NECK: No masses, no JVD. CHEST: No chest wall deformity. LUNGS: Equal air entry with faint crackles in the bilateral posterior bases, diminished. CVS: S1 and S2 normal with no audible murmur, regular rhythm. ABDOMEN: No hepatosplenomegaly, normal bowel sounds, no guarding or rigidity. SPINE: No scoliosis or deformity SKIN: No rashes or areas of ecchymosis. CENTRAL NERVOUS SYSTEM: No focal deficits, tone is normal in all 4 extremities. EXTREMITIES: There is 1+ peripheral edema. No clubbing, slight cyanosis. Peripheral pulses are intact. Results - Laboratory Findings CBC and BMP: 11/03/18 08:50 11/03/18 08:50 PT/INR, D-dimer PT 14.9 sec (9.0-12.0) H 11/03/18 08:50 INR 1.5 (<1.2) H 11/03/18 08:50 Abnormal lab findings: Abnormal Labs 11/03/18 11/03/18 11/03/18 08:50 08:50 08:50 WBC 11.7 H RBC 3.11 L Hgb 9.9 L Hct 33.0 L MCV 105.8 H MCHC 30.1 L RDW 15.7 H Neutrophils # (Manual) 7.84 H Monocytes # (Manual) 1.05 H PT 14.9 H INR 1.5 H VBG pH VBG HCO3 Chloride 95 L Carbon Dioxide 33 H BUN 73 H Creatinine 1.43 H Glucose 197 H POC Glucose (mg/dL) Alkaline Phosphatase 183 H Troponin I 11/03/18 11/03/18 11/03/18 08:50 09:35 13:48 WBC RBC Hgb Hct MCV MCHC RDW Neutrophils # (Manual) Monocytes # (Manual) PT INR VBG pH 7.43 H VBG HCO3 31 H Chloride Carbon Dioxide BUN Creatinine Glucose POC Glucose (mg/dL) 188 H Alkaline Phosphatase Troponin I 0.036 H* - Diagnostic Findings Chest x-ray: image reviewed Assessment and Plan Assessment: Impression: #1 Acute exacerbation of severe oxygen dependent chronic obstructive pulmonary disease. #2 Acute exacerbation of chronic systolic congestive heart failure. #3 Acute on chronic hypoxic respiratory failure secondary to above. #4 Severe pulmonary hypertension. RVSP 78 mmHg. #5 Moderate to severe tricuspid regurgitation. #6 Moderate mitral regurgitation. #7 History of aortic stenosis status post bioprosthetic aortic valve replacement #8 History of DVT, status post Vikram filter placement. #9 Paroxysmal atrial fibrillation, and daily with Eliquis. #10 Hypertension. #11 Hyperlipidemia. #12 Obstructive sleep apnea on CPAP therapy. #13 Coronary artery disease. #14 History of CVA/TIA with memory impairment. #15 History of previous chronic tobacco dependence on and off for 50 years. Quit in 2009. #16 Poor overall functional performance based on the above-mentioned multiple comorbidities. Plan: The patient was seen and evaluated by Dr. Phillips. Chest x-ray and labs reviewed. We will plan to add DuoNeb inhalations 4 times a day and when necessary, Pulmicort and Perforomist inhalations every 12 hours. She's currently on azithromycin. Anticoagulated with Eliquis. No steroids for now. We will continue to follow make further recommendations based on her clinical status. I, the cosigning physician, performed a history & physical examination of the patient. Lungs sounds faint crackles in the bilateral posterior bases, diminished. Maintaining good O2 saturations in the 90s on 4 L/m per nasal cannula. I discussed the assessment and plan of care with my nurse practitioner, Melissa Feldman. I attest to the above note as dictated by her. Time with Patient: Greater than 30
[2018-11-03] MEDS: ACETAMINOPHEN TAB 500 MG TAB PO PRN (14:28)
[2018-11-03] MEDS: SODIUM CHLORIDE 0.9% 500 ML 500 ML IV SCH ×2 (15:43→15:44)
[2018-11-03 16:15] LABS: Glucose,Whole Blood 257 mg/dL (75-99)
[2018-11-03] MEDS: ALBUTEROL NEBULIZED 2.5 MG/3 ML INHALATION PRN ×2 (16:45→20:31)
[2018-11-03] MEDS: INSULIN ASPART (NovoLOG) 100 UNIT/ML VIAL SQ SCH ×2 (17:01→20:57)
[2018-11-03] MEDS ORDERED: ATENOLOL 25 MG TAB PO SCH (18:30)
[2018-11-03] MEDS: BUDESONIDE 0.5 MG/2 ML NEBU INHALATION SCH ×2 (20:10→20:32)
[2018-11-03] MEDS: APIXABAN 5 MG TAB PO SCH (20:27)
[2018-11-03] MEDS: metFORMIN 500 MG TAB PO SCH (20:27)
[2018-11-03 20:38] LABS: Glucose,Whole Blood 271 mg/dL (75-99)
[2018-11-03] MEDS: OXYBUTYNIN CHLORIDE 5 MG TAB PO SCH (20:56)
[2018-11-04] MEDS: ACETAMINOPHEN TAB 500 MG TAB PO PRN ×2 (01:01→19:35)
[2018-11-04 01:08] LABS: Glucose,Whole Blood 218 mg/dL (75-99)
[2018-11-04 06:45] LABS: Glucose,Whole Blood 213 mg/dL (75-99)
[2018-11-04] MEDS: INSULIN ASPART (NovoLOG) 100 UNIT/ML VIAL SQ SCH ×7 (07:12→21:10)
--- NOTE | 2018-11-04 08:04 | P.CRDCN ---
History of Present Illness Consult date: 11/03/18 Requesting physician: Sina Mitchell Consult reason: shortness of breath Chief complaint: Shortness of breath History of present illness: This is a 67-year-old female with history of paroxysmal atrial fibrillation, on Eliquis for anticoagulation, valvular heart disease with prior aortic valve replacement for aortic stenosis, moderate mitral regurgitation and severe tricuspid regurg, pulmonary hypertension, prior DVT with history of [place] filter placement, hypertension, hyperlipidemia, prior CVA, obstructive sleep apnea. She also has advanced COPD from prior chronic nicotine dependence and chronic hypoxemic respiratory failure on home O2 at 4 L. Patient had a recent GI bleed, EGD revealed a large hiatal hernia containing a large portion of the stomach. There is mild gastritis which was biopsied, duodenal biopsies also obtained. Colonoscopy revealed diminutive transverse colon and descending colon polyps which were removed, mild diverticulosis and the patient was cleared to resume Eliquis. She presented to the emergency room on this occasion with symptoms of profound weakness and associated shortness of breath. Chest x-ray on admission showed mild cardiomegaly, fluid volume overload and moderate hiatal hernia. White blood cell count 11.7, hemoglobin 9.9, INR 1.5, creatinine 1.4, troponin 0.036. BNP level 6630. Patient was seen and examined on the cardiac unit, sitting up in bed, afebrile and hemodynamically stable. Her EKG showed a normal sinus rhythm with T wave inversion noted in the lateral leads. Past Medical History Past Medical History: Atrial Fibrillation, Coronary Artery Disease (CAD), Heart Failure, COPD, CVA/TIA, Diabetes Mellitus, Deep Vein Thrombosis (DVT), GERD/Reflux, Hyperlipidemia, Hypertension, Myocardial Infarction (NC), Osteoarthritis (OA), Pneumonia, Renal Disease, Respiratory Disorder, Sleep Apnea/CPAP/BIPAP Additional Past Medical History / Comment(s): Pt recently admitted to [facility] on 09/27/18 with lower GI bleed, acute blood loss anemia, asymptomatic abnormal UA, chronic mild leukocytosis. Other HX: Moderate mitral valve regurgitation, severe tricuspid regurgitation, paroxysmal Afib, cardiomyopathy, murmur, advanced COPD with chronic hypoxic respiratory failure, pulmonary htn, home oxygen at 4L/[place] ATC, CVA without residual, CKD, possible dementia, anemia, has received iron infusions in past, chronic low back pain, arthritis in multiple joints, IDDM type II, JOSELITO with bipap use, hiatal hernia, sinus problems, constipation. Last Myocardial Infarction Date:: 2002 History of Any Multi-Drug Resistant Organisms: None Reported Past Surgical History: Cardiac Valve Replacement, Heart Catheterization With Stent, Hysterectomy, Orthopedic Surgery Additional Past Surgical History / Comment(s): 09/29/18 small bowel capsule, PCI with stents (2), 2009 aortic valve replaced-bovine, vikram filter, bilateral cataract removal/lens implants, septoplasty. Past Anesthesia/Blood Transfusion Reactions: Previous Problems w/ Anesthesia Additional Past Anesthesia/Blood Transfusion Reaction / Comment(s): TROUBLE WAKING UP IN PAST Date of Last Stent Placement:: 2002 Past Psychological History: Anxiety Additional Psychological History / Comment(s): Pt resides with her spouse and daughter and grandchild. She uses a rolator walker. She has home oxygen and a nebulizer. She no longer drives, her spouse or family drive her to [id number], Smoking Status: Former smoker Past Alcohol Use History: None Reported Additional Past Alcohol Use History / Comment(s): SMOKED 1PPD OR MORE SINCE AGE 11 (1963) QUIT APPROX 2010 Past Drug Use History: Marijuana Additional Drug Use History / Comment(s): patient has marijuana pen (liquid, by mouth) that she uses 2-3 times daily, prescribled by dr graham. - Past Family History Father Family Medical History: Cancer Sister(s) Family Medical History: Cancer Additional Family Medical History / Comment(s): BREAST Mother Family Medical History: Vascular Disorder Additional Family Medical History / Comment(s): Mother of ruptured aortic aneurysm. Medications and Allergies Home Medications Medication Instructions Recorded Confirmed Type Apixaban [Eliquis] 5 mg PO BID 03/10/16 11/03/18 History Atorvastatin [Lipitor] 40 mg PO DAILY 03/10/16 11/03/18 History metFORMIN HCL [Glucophage] 500 mg PO BID 03/10/16 11/03/18 History Allopurinol [Zyloprim] 100 mg PO DAILY 03/30/18 11/03/18 History Oxybutynin Chloride [Ditropan] 5 mg PO BID 03/30/18 11/03/18 History Donepezil [Aricept] 10 mg PO DAILY 09/06/18 11/03/18 History Spironolactone [Aldactone] 25 mg PO DAILY #30 tab 09/12/18 11/03/18 Rx Albuterol Nebulized [Ventolin 2.5 mg INHALATION RT-Q4H PRN 09/27/18 11/03/18 History Nebulized] Budesonide [Pulmicort] 0.5 mg INHALATION RT-BID 09/27/18 11/03/18 History ALPRAZolam [Xanax] 0.5 mg PO TID PRN 11/03/18 11/03/18 History Atenolol 25 mg PO PC-SUPPER 11/03/18 11/03/18 History Atenolol [Tenormin] 75 mg PO DAILY 11/03/18 11/03/18 History INSULIN LISPRO (humaLOG) [humaLOG] 5 unit SQ AC-TID 11/03/18 11/03/18 History Insulin Detemir (Levemir) [Levemir] 20 unit PO DAILY 11/03/18 11/03/18 History Ranitidine HCl [Zantac] 150 mg PO DAILY 11/03/18 11/03/18 History Allergies Allergy/AdvReac Type Severity Reaction Status Date / Time codeine Allergy "made me Verified 11/03/18 10:07 feel antsy" Penicillins Allergy Swelling Verified 11/03/18 10:07 Physical Exam Vitals: Vital Signs Temp Pulse Pulse Resp BP BP Pulse Ox 11/04/18 04:00 97.4 F L 91 20 105/50 90 L 11/04/18 00:59 97.4 F L 93 24 115/67 96 11/03/18 20:49 90 11/03/18 20:32 92 11/03/18 20:00 98.1 F 92 20 114/50 96 11/03/18 17:34 93 122/68 11/03/18 16:56 96 11/03/18 16:45 92 11/03/18 16:00 20 11/03/18 15:39 93 20 118/83 96 11/03/18 13:25 97 F L 96 24 122/72 92 L 11/03/18 11:18 93 18 121/81 98 11/03/18 11:03 93 18 90/55 100 11/03/18 09:42 94 11/03/18 09:31 93 11/03/18 09:09 93 22 104/69 98 11/03/18 08:30 98.0 F 90 18 104/52 86 L Intake and Output 11/03/18 11/04/18 11/04/18 22:59 06:59 14:59 Intake Total 240 Balance 240 Intake: Oral 240 Other: Voiding Method Bedside Commode Bedside Commode # Voids 1 Weight 97.6 kg GENERAL EXAM: Pale, weak appearing 67-year-old female patient. On 4 L nasal cannula. HEAD: Normocephalic. EYES: Normal reaction of pupils, equal size. NOSE: Clear with pink turbinates. THROAT: No erythema or exudates. NECK: No masses, elevated jugular venous pressure noted . CHEST: No chest wall deformity. LUNGS: Equal air entry with faint crackles in the bilateral posterior bases, diminished. CVS: S1 and S2 systolic murmur is heard . ABDOMEN: No hepatosplenomegaly, normal bowel sounds, no guarding or rigidity. SPINE: No scoliosis or deformity SKIN: No rashes or areas of ecchymosis. CENTRAL NERVOUS SYSTEM: No focal deficits, tone is normal in all 4 extremities. EXTREMITIES: There is 1+ peripheral edema. No clubbing, slight cyanosis. Peripheral pulses are intact. Results 11/03/18 08:50 11/03/18 08:50 Cardiac Enzymes 11/03/18 11/03/18 Range/Units 08:50 08:50 AST 34 (14-36) U/L Troponin I 0.036 H* (0.000-0.034) ng/mL Coagulation 11/03/18 Range/Units 08:50 PT 14.9 H (9.0-12.0) sec APTT 26.0 (22.0-30.0) sec CBC 11/03/18 Range/Units 08:50 WBC 11.7 H (3.8-10.6) k/uL RBC 3.11 L (3.80-5.40) m/uL Hgb 9.9 L (11.4-16.0) gm/dL Hct 33.0 L (34.0-46.0) % Plt Count 285 (150-450) k/uL Comprehensive Metabolic Panel 11/03/18 Range/Units 08:50 Sodium 140 (137-145) mmol/L Potassium 3.7 (3.5-5.1) mmol/L Chloride 95 L (98-107) mmol/L Carbon Dioxide 33 H (22-30) mmol/L BUN 73 H (7-17) mg/dL Creatinine 1.43 H (0.52-1.04) mg/dL Glucose 197 H (74-99) mg/dL Calcium 9.8 (8.4-10.2) mg/dL AST 34 (14-36) U/L ALT 30 (9-52) U/L Alkaline Phosphatase 183 H (38-126) U/L Total Protein 7.3 (6.3-8.2) g/dL Albumin 4.2 (3.5-5.0) g/dL Current Medications Generic Name Dose Route Start Last Admin Trade Name Freq PRN Reason Stop Dose Admin Acetaminophen 1,000 mg 11/03/18 14:11 11/04/18 01:01 Tylenol Tab PO 1,000 mg Q6HR PRN Administration Fever and/ or Mild Pain Albuterol Sulfate 2.5 mg 11/03/18 11:29 11/03/18 20:31 Ventolin Nebulized INHALATION 2.5 mg RT-Q4H PRN Administration Shortness Of Breath Allopurinol 100 mg 11/04/18 09:00 Zyloprim PO DAILY [facility] Apixaban 5 mg 11/03/18 21:00 11/03/18 20:27 Eliquis PO 5 mg BID BRISA Administration Atenolol 25 mg 11/03/18 18:30 11/03/18 17:36 Tenormin PO 25 mg PC-SUPPER BRISA Administration Atenolol 75 mg 11/04/18 09:00 Tenormin PO DAILY [facility] Atorvastatin Calcium 40 mg 11/04/18 09:00 Lipitor PO DAILY [facility] Azithromycin 500 mg 11/04/18 09:00 Zithromax PO DAILY [facility] Budesonide 0.5 mg 11/03/18 20:00 11/03/18 20:32 Pulmicort INHALATION 0.5 mg RT-BID BRISA Administration Donepezil HCl 10 mg 11/04/18 09:00 Aricept PO DAILY [facility] Famotidine 20 mg 11/04/18 09:00 Pepcid PO DAILY [facility] Sodium Chloride 500 mls @ 20 mls/hr 11/03/18 15:45 11/03/18 15:44 Saline 0.9% IV 20 mls/hr .Q24H BRISA Administration Insulin Aspart 5 unit 11/03/18 17:30 11/04/18 07:12 Novolog SQ 5 unit AC-TID BRISA Administration Insulin Aspart 0 unit 11/03/18 21:00 11/04/18 07:12 Novolog SQ 3 unit ACHS BRISA Administration Protocol Metformin HCl 500 mg 11/03/18 21:00 11/03/18 20:27 Glucophage PO 500 mg BID BRISA Administration Oxybutynin Chloride 5 mg 11/03/18 21:00 11/03/18 20:56 Ditropan PO 5 mg BID BRISA Administration Prednisone 40 mg 11/04/18 09:00 PO DAILY BRISA Spironolactone 25 mg 11/04/18 09:00 Aldactone PO DAILY BRISA Intake and Output 11/03/18 11/04/18 11/04/18 22:59 06:59 14:59 Intake Total 240 Balance 240 Intake: Oral 240 Other: Voiding Method Bedside Commode Bedside Commode # Voids 1 Weight 97.6 kg 11/03/18 08:50 11/03/18 08:50 EKG Interpretations (text) EKG shows a normal sinus rhythm with lateral T-wave inversion Assessment and Plan Plan: Impression and plan: #1 Acute exacerbation of severe oxygen dependent chronic obstructive pulmonary disease. #2 Acute exacerbation of chronic systolic congestive heart failure. #3 Acute on chronic hypoxic respiratory failure secondary to above. #4 Severe pulmonary hypertension. RVSP 78 mmHg. #5 Moderate to severe tricuspid regurgitation. #6 Moderate mitral regurgitation. #7 History of aortic stenosis status post bioprosthetic aortic valve replacement #8 History of DVT, status post Vikram filter placement. #9 Paroxysmal atrial fibrillation, on Eliquis for anticoagulation . #10 Hypertension. #11 Hyperlipidemia. #12 Obstructive sleep apnea on CPAP therapy. #13 Coronary artery disease. #14 History of CVA/TIA with memory impairment. #15 History of previous chronic tobacco dependence on and off for 50 years. Qu it in 2009. #16 Poor overall functional performance based on the above-mentioned multiple comorbidities. Plan Patient was given a dose of IV Lasix in the emergency room, we will recommend to continue IV Lasix twice a day, obtain echocardiogram with Doppler study, patient had an echocardiogram with Doppler study performed in August which revealed an ejection fraction of 40-45%, monitor intake and output along with daily weights and daily lytes BUN and creatinine. We will also discontinue the atenolol and put the patient on metoprolol succinate, continue Aldactone, add an RHIANNON inhibitor. Further recommendations to follow. DNP note has been reviewed, I agree with a documented findings and plan of care. Patient was seen and examined.
[2018-11-04] MEDS: ALBUTEROL NEBULIZED 2.5 MG/3 ML INHALATION PRN ×2 (08:17→11:37)
[2018-11-04] MEDS: BUDESONIDE 0.5 MG/2 ML NEBU INHALATION SCH ×2 (08:17→21:41)
[2018-11-04] MEDS: FUROSEMIDE 10 MG/ML 4 ML VIAL IV SCH ×2 (08:54→20:31)
[2018-11-04] MEDS: metFORMIN 500 MG TAB PO SCH (08:55)
[2018-11-04] MEDS: APIXABAN 5 MG TAB PO SCH ×2 (08:55→21:10)
[2018-11-04] MEDS: DONEPEZIL 10 MG TAB PO SCH (08:55)
[2018-11-04] MEDS: METOPROLOL SUCCINATE (ER) 50 MG TAB.ER.24H PO SCH (08:55)
[2018-11-04] MEDS: ALLOPURINOL 100 MG TAB PO SCH (08:55)
[2018-11-04] MEDS: AZITHROMYCIN 500 MG TAB PO SCH (08:55)
[2018-11-04] MEDS: predniSONE 20 MG TAB PO SCH (08:55)
[2018-11-04] MEDS: SPIRONOLACTONE 25 MG TAB PO SCH (08:55)
[2018-11-04] MEDS: LISINOPRIL 5 MG TAB PO SCH (08:55)
[2018-11-04] MEDS: ATORVASTATIN 40 MG TAB PO SCH (08:55)
[2018-11-04] MEDS: OXYBUTYNIN CHLORIDE 5 MG TAB PO SCH ×2 (08:55→21:10)
[2018-11-04] MEDS ORDERED: FAMOTIDINE 20 MG TAB PO SCH (09:00)
[2018-11-04] MEDS ORDERED: ATENOLOL 25 MG TAB PO SCH (09:00)
--- NOTE | 2018-11-04 09:17 | PN ---
PROGRESS NOTE DATE OF SERVICE: 11/04/2018 This is a 67-year-old female who we saw yesterday in consultation. She has a history of multiple medical problems including severe oxygen-dependent COPD, chronic systolic heart failure, acute on chronic hypoxemic respiratory failure, severe pulmonary hypertension, valvular heart disease in the form of moderate to severe tricuspid regurgitation, moderate mitral regurgitation, aortic stenosis status post aortic valve replacement, DVT status post [place] filter and paroxysmal atrial fibrillation, among other things. Anyway, the patient was quite moribund looking yesterday. She had significant shortness of breath. Her respiratory rate was in the mid 30s. She had perioral cyanosis as well as fingertip and toe tip acrocyanosis. Today, she is sitting up in a chair. She is still on oxygen therapy on 3 to 4 L. She is feeling much improved. Her breathing is much, much better. She states that she feels like a new woman. Yesterday, she looked quite poor. She denies any cough or phlegm production. There is no fever or chills. She denies any chest pain or chest discomfort. She is not coughing up any blood. Her breathing is still a bit labored, but she is much improved. PHYSICAL EXAMINATION: VITAL SIGNS: Current vital signs include a temperature 97.4, heart rate 91, respiratory rate 20, blood pressure 105/50, mean 68 and 4 L saturation is 90% to 96%. GENERAL: Appears mildly tachypneic. There is no audible wheezing, use of accessory muscles or conversational dyspnea. HEENT: Examination is grossly unremarkable. Nasal O2 noted. Mucous membranes are moist. NECK: Supple. Full range of motion. No neck vein distention or adenopathy or thyromegaly. CARDIOVASCULAR: Examination reveals regular rhythm and rate. Heart rate right around 100 beats per minute. S1, S2 normal. No murmur. Heart sounds are distant. LUNGS: Sounds reveal a few scattered mild rhonchi. There is some crackles at the bases. Some expiratory wheezes are appreciated. Breath sounds are equal bilaterally but diminished throughout. Breath sounds today are improved compared to yesterday's exam. ABDOMEN: Obese. Bowel sounds are heard. EXTREMITIES: Are intact. There is edema bilaterally. It is 1+ to 2+ and pitting. SKIN: Without rash. NEUROLOGIC: Examination is brief but nonfocal. LABORATORY DATA: Laboratory data is reviewed. Nothing back from her today as yet. Yesterday's labs are reviewed. Microbiology is pending or negative. X-RAY: Chest x-ray was reviewed yesterday. MEDICATIONS: Medications are reviewed. They appear to be appropriate. ASSESSMENT: 1. Acute exacerbation of severe oxygen-dependent chronic obstructive pulmonary disease, improved. 2. Acute deterioration of the patient's chronic systolic heart failure. 3. Acute on chronic hypoxemic respiratory failure. 4. Severe pulmonary hypertension. 5. Moderate to severe tricuspid regurgitation. 6. Moderate mitral regurgitation. 7. History of aortic stenosis, status post bioprosthetic aortic valve replacement. 8. History of deep venous thrombosis, status post Vikram filter. 9. Paroxysmal atrial fibrillation. 10.Hypertension by history. 11.History of hyperlipidemia. 12.History of sleep apnea, maintained on CPAP. 13.Coronary artery disease. 14.History of cerebrovascular accident/transient ischemic attack with memory impairment. 15.History of previous tobacco dependence. 16.Poor functional status. PLAN: Overall, the patient is doing much better today. Medications are reviewed. The patient was placed on DuoNeb, Pulmicort and Perforomist. No steroids for now. Additional recommendations and suggestions are forthcoming. Prognosis is guarded. She has a host of other medical issues as well. MMODL / IJN: [id number] /
--- NOTE | 2018-11-04 10:18 | PN ---
PROGRESS NOTE This patient is admitted with respiratory distress which is secondary to acute on chronic mild systolic heart failure as well as acute exacerbation of COPD. Patient gives a history that she is not feeling well. She is short of breath. She was not significantly orthopneic. Her heart rate is 90 to 100, blood pressure is 105/70 mmHg, oxygen saturation is 90%. Her jugular venous pressure is significantly elevated. First and second heart sounds are normal. Lung examination revealed bilateral rales in the lower 1/3 of the lung cordon. Patient's urine output is not well recorded. Creatinine is 1.43, BUN is 73. Patient's BNP level was elevated. Chest x-ray is suggestive of congestive cardiac failure. ASSESSMENT: The patient has had some mildly elevated troponin, possibly secondary to supply and demand mismatch and hypoxia. RECOMMENDATIONS: We will start the patient on Lasix drip at 5 mg/hour and continue the rest of the medications. Patient maybe needs to be on IV Solu-Medrol. We will review the patient's echocardiogram. MMODL / IJN: [id number] /
[2018-11-04] MEDS: FUROSEMIDE 100 MG in SODIUM CHLORIDE 0.9% 90 ML IV SCH (11:18)
[2018-11-04 11:22] LABS: Glucose,Whole Blood 263 mg/dL (75-99)
[2018-11-04] MEDS ORDERED: ALBUTEROL NEBULIZED 2.5 MG/3 ML INHALATION PRN (11:42)
--- NOTE | 2018-11-04 12:01 | P.HPIM ---
History of Present Illness Present pleasant 67-year-old female with history of can start failure chronic systolic dysfunction ejection fraction of 45% proximal atrial fibrillation chronic diastolic dysfunction COPD as independent 4 L with the severe pulmonary hypertension with aortic valvular mitral valvular and tricuspid valvular disease With comments of shortness of breath cough without any significant sputum production. Patient the is being treated for both COPD as well as CHF. Chest x-ray did not show any pulmonary edema patient does have pedal edema pitting does have elevated JVD. Doesn't have any fevers no evidence of pneumonia on chest x-ray or clinically. Patient is in respiratory distress with very minimal activity. Patient is definitely below volume overloaded patient is receiving IV Lasix which is being switched to Lasix drip. Creatinine is 1.43 baseline is around 0.8. Minimally elevated troponin, BNP of 6630. is on Eliquis for a atrial fibrillation. Review of Systems REVIEW OF SYSTEMS: CONSTITUTIONAL: No fever, no malaise, no fatigue. HEENT: No recent visual problems or hearing problems. Denied any sore throat. CARDIOVASCULAR: No chest pain, no palpitations, no syncope. PULMONARY: , no hemoptysis. GASTROINTESTINAL: No diarrhea, no nausea, no vomiting, no abdominal pain. NEUROLOGICAL: No headaches, no weakness, no numbness. HEMATOLOGICAL: Denies any bleeding or petechiae. GENITOURINARY: Denies any burning micturition, frequency, or urgency. MUSCULOSKELETAL/RHEUMATOLOGICAL: Denies any joint pain, swelling, or any muscle pain. ENDOCRINE: Denies any polyuria or polydipsia. The rest of the 14-point review of systems is negative. Past Medical History Past Medical History: Atrial Fibrillation, Coronary Artery Disease (CAD), Heart Failure, COPD, CVA/TIA, Diabetes Mellitus, Deep Vein Thrombosis (DVT), GERD/Reflux, Hyperlipidemia, Hypertension, Myocardial Infarction (MT), Osteoarthritis (OA), Pneumonia, Renal Disease, Respiratory Disorder, Sleep Apnea/CPAP/BIPAP Additional Past Medical History / Comment(s): Pt recently admitted to [facility] on 09/27/18 with lower GI bleed, acute blood loss anemia, asymptomatic abnormal UA, chronic mild leukocytosis. Other HX: Moderate mitral valve regurgitation, maulik re tricuspid regurgitation, paroxysmal Afib, cardiomyopathy, murmur, advanced COPD with chronic hypoxic respiratory failure, pulmonary htn, home oxygen at 4L/NC ATC, CVA without residual, CKD, possible dementia, anemia, has received iron infusions in past, chronic low back pain, arthritis in multiple joints, IDDM type II, JOSELITO with bipap use, hiatal hernia, sinus problems, constipation. Last Myocardial Infarction Date:: 2002 History of Any Multi-Drug Resistant Organisms: None Reported Past Surgical History: Cardiac Valve Replacement, Heart Catheterization With Stent, Hysterectomy, Orthopedic Surgery Additional Past Surgical History / Comment(s): 09/29/18 small bowel capsule, PCI with stents (2), 2009 aortic valve replaced-bovine, kinjal filter, bilateral cataract removal/lens implants, septoplasty. Past Anesthesia/Blood Transfusion Reactions: Previous Problems w/ Anesthesia Additional Past Anesthesia/Blood Transfusion Reaction / Comment(s): TROUBLE WAKING UP IN PAST Date of Last Stent Placement:: 2002 Past Psychological History: Anxiety Additional Psychological History / Comment(s): Pt resides with her spouse and daughter and grandchild. She uses a rolator walker. She has home oxygen and a nebulizer. She no longer drives, her spouse or family drive her to [employer], Smoking Status: Former smoker Past Alcohol Use History: None Reported Additional Past Alcohol Use History / Comment(s): SMOKED 1PPD OR MORE SINCE AGE 11 (1963) QUIT APPROX 2010 Past Drug Use History: Marijuana Additional Drug Use History / Comment(s): patient has marijuana pen (liquid, by mouth) that she uses 2-3 times daily, prescribled by dr graham. - Past Family History Father Family Medical History: Cancer Sister(s) Family Medical History: Cancer Additional Family Medical History / Comment(s): BREAST Mother Family Medical History: Vascular Disorder Additional Family Medical History / Comment(s): Mother of ruptured aortic aneurysm. Medications and Allergies Home Medications Medication Instructions Recorded Confirmed Type Apixaban [Eliquis] 5 mg PO BID 03/10/16 11/03/18 History Atorvastatin [Lipitor] 40 mg PO DAILY 03/10/16 11/03/18 History metFORMIN HCL [Glucophage] 500 mg PO BID 03/10/16 11/03/18 History Allopurinol [Zyloprim] 100 mg PO DAILY 03/30/18 11/03/18 History Oxybutynin Chloride [Ditropan] 5 mg PO BID 03/30/18 11/03/18 History Donepezil [Aricept] 10 mg PO DAILY 09/06/18 11/03/18 History Spironolactone [Aldactone] 25 mg PO DAILY #30 tab 09/12/18 11/03/18 Rx Albuterol Nebulized [Ventolin 2.5 mg INHALATION RT-Q4H PRN 09/27/18 11/03/18 History Nebulized] Budesonide [Pulmicort] 0.5 mg INHALATION RT-BID 09/27/18 11/03/18 History ALPRAZolam [Xanax] 0.5 mg PO TID PRN 11/03/18 11/03/18 History Atenolol 25 mg PO PC-SUPPER 11/03/18 11/03/18 History Atenolol [Tenormin] 75 mg PO DAILY 11/03/18 11/03/18 History INSULIN LISPRO (humaLOG) [humaLOG] 5 unit SQ AC-TID 11/03/18 11/03/18 History Insulin Detemir (Levemir) [Levemir] 20 unit PO DAILY 11/03/18 11/03/18 History Ranitidine HCl [Zantac] 150 mg PO DAILY 11/03/18 11/03/18 History Allergies Allergy/AdvReac Type Severity Reaction Status Date / Time codeine Allergy "made me Verified 11/03/18 10:07 feel antsy" Penicillins Allergy Swelling Verified 11/03/18 10:07 Physical Exam Vitals: Vital Signs Temp Pulse Pulse Resp BP Pulse Ox 11/04/18 11:52 98 11/04/18 11:37 96 11/04/18 11:23 96.3 F L 95 24 105/67 93 L 11/04/18 08:33 100 11/04/18 08:18 100 11/04/18 08:00 97.6 F 95 22 108/67 93 L 11/04/18 04:00 97.4 F L 91 20 105/50 90 L 11/04/18 00:59 97.4 F L 93 24 115/67 96 11/03/18 20:49 90 11/03/18 20:32 92 11/03/18 20:00 98.1 F 92 20 114/50 96 11/03/18 17:34 93 122/68 11/03/18 16:56 96 11/03/18 16:45 92 11/03/18 16:00 20 11/03/18 15:39 93 20 118/83 96 11/03/18 13:25 97 F L 96 24 122/72 92 L Intake and Output 11/03/18 11/04/18 11/04/18 22:59 06:59 14:59 Intake Total 240 120 Balance 240 120 Intake: Oral 240 120 Other: Voiding Method Bedside Commode Bedside Commode Bedside Commode # Voids 1 2 Weight 97.6 kg PHYSICAL EXAMINATION: GENERAL: The patient is alert and oriented x3, not in any acute distress. Well developed, well nourished. HEENT: Pupils are round and equally reacting to light. EOMI. No scleral icterus. No conjunctival pallor. Normocephalic, atraumatic. No pharyngeal erythema. No thyromegaly. CARDIOVASCULAR: S1 and S2 present. No murmurs, rubs, or gallops. Elevated JVD does have a systolic murmur and diuretic area mitral area diastolic murmur in the mitral area PULMONARY: No known exposure to wheezing and crackles were appreciated ABDOMEN: Soft, nontender, nondistended, normoactive bowel sounds. No palpable organomegaly. MUSCULOSKELETAL: No joint swelling or deformity. EXTREMITIES: No cyanosis, clubbing, does have 1-2+ pitting pedal edema NEUROLOGICAL: Gross neurological examination did not reveal any focal deficits. SKIN: No rashes. Results CBC & Chem 7: 11/03/18 08:50 11/03/18 08:50 Labs: Abnormal Lab Results - Last 24 Hours (Table) 11/03/18 11/03/18 11/03/18 Range/Units 13:48 16:07 20:36 POC Glucose (mg/dL) 188 H 257 H 271 H (75-99) mg/dL 11/04/18 11/04/18 11/04/18 Range/Units 01:06 06:43 11:21 POC Glucose (mg/dL) 218 H 213 H 263 H (75-99) mg/dL Thrombosis Risk Factor Assmnt - Choose All That Apply Any of the Below Risk Factors Present?: Yes Each Factor Represents 1 point: Obesity (BMI >25), Serious lung disease incl. pneumonia (< 1month) Other Risk Factors: Yes Each Risk Factor Represents 2 Points: Age 61-74 years Each Risk Factor Represents 3 Points: History of DVT/PE Other congenital or acquired thrombophilia - If yes, enter type in comment: No Thrombosis Risk Factor Assessment Total Risk Factor Score: 7 Thrombosis Risk Factor Assessment Level: High Risk Assessment and Plan Plan: -Acute on chronic hypoxic and hypercapnic respiratory failure second to COPD etc. patient has a disease of exacerbation. Patient does have chronic systolic dysfunction as well as diastolic dysfunction as well as right-sided heart failure, cor pulmonale severe pulmonary hypertension all of which is contributing to her shortness of breath and patient will be on systemic steroids inhalational treatments along with IV Lasix drip as mentioned above. -COPD exacerbation -severe pulmonary hypertension with RVSP of 78 -Multi-valvular disease as mentioned above -History of DVT with [place] filter next and haven't proximal atrial fibrillation presently rate controlled patient is an echo scheduled for near continue with rate control medications -Congestive heart failure chronic systolic as was diastolic dysfunction, ejection fraction of 45% with acute exacerbation -Acute renal failure prerenal azotemia secondary to heart failure exacerbation expected to improve with IV Lasix -Hypertension #10 hyperlipidemia -CVA TIA in the past Have coronary artery disease -Obstructive sleep apnea on CPAP at home Her oral prognosis is extremely poor. Patient will need pharmacologic GI prophylaxis.
[2018-11-04] MEDS: ALBUTEROL NEBULIZED 2.5 MG/3 ML INHALATION SCH ×3 (13:07→21:41)
[2018-11-04] MEDS: FAMOTIDINE 20 MG TAB PO SCH (15:55)
[2018-11-04 17:06] LABS: Glucose,Whole Blood 228 mg/dL (75-99)
[2018-11-04 20:29] LABS: Glucose,Whole Blood 285 mg/dL (75-99)
[2018-11-04] MEDS: ALPRAZolam 0.25 MG TAB PO PRN (22:17)
[2018-11-05] MEDS: ACETAMINOPHEN TAB 500 MG TAB PO PRN ×3 (02:37→19:59)
[2018-11-05] MEDS: FUROSEMIDE 100 MG in SODIUM CHLORIDE 0.9% 90 ML IV SCH (03:26)
[2018-11-05 05:56] LABS: Glucose,Whole Blood 302 mg/dL (75-99)
[2018-11-05] MEDS: ALPRAZolam 0.25 MG TAB PO PRN (07:10)
[2018-11-05 07:11] LABS: Calcium 9.1 mg/dL (8.4-10.2); Potassium 4.2 mmol/L (3.5-5.1)
[2018-11-05] MEDS: INSULIN ASPART (NovoLOG) 100 UNIT/ML VIAL SQ SCH ×7 (07:11→20:04)
[2018-11-05] MEDS: BUDESONIDE 0.5 MG/2 ML NEBU INHALATION SCH ×2 (07:30→20:15)
[2018-11-05] MEDS: ALBUTEROL NEBULIZED 2.5 MG/3 ML INHALATION SCH ×5 (07:30→20:15)
[2018-11-05] MEDS: SPIRONOLACTONE 25 MG TAB PO SCH (08:36)
[2018-11-05] MEDS: FAMOTIDINE 20 MG TAB PO SCH (08:36)
[2018-11-05] MEDS: LISINOPRIL 5 MG TAB PO SCH (08:36)
[2018-11-05] MEDS: APIXABAN 5 MG TAB PO SCH ×2 (08:36→19:59)
[2018-11-05] MEDS: OXYBUTYNIN CHLORIDE 5 MG TAB PO SCH ×2 (08:36→19:59)
[2018-11-05] MEDS: predniSONE 20 MG TAB PO SCH (08:36)
[2018-11-05] MEDS: ALLOPURINOL 100 MG TAB PO SCH (08:36)
[2018-11-05] MEDS: ATORVASTATIN 40 MG TAB PO SCH (08:36)
[2018-11-05] MEDS: DONEPEZIL 10 MG TAB PO SCH (08:36)
[2018-11-05] MEDS: METOPROLOL SUCCINATE (ER) 50 MG TAB.ER.24H PO SCH (08:36)
[2018-11-05] MEDS: AZITHROMYCIN 500 MG TAB PO SCH (08:36)
[2018-11-05] MEDS: FUROSEMIDE 10 MG/ML 4 ML VIAL IV SCH ×2 (09:40→20:00)
--- NOTE | 2018-11-05 09:46 | P.PN ---
Subjective Progress Note Date: 11/05/18 Principal diagnosis: Acute exacerbation of severe oxygen dependent chronic obstructive pulmonary disease. This is a very pleasant 67-year-old female patient who follows with Dr. Sina Mitchell is her primary care physician. She has a history of chronic systolic congestive heart failure, paroxysmal atrial fibrillation on anticoagulations informant Eliquis, valvular heart disease status post aortic valve replacement for aortic stenosis, moderate mitral regurgitation and severe tricuspid regurgitation, pulmonary hypertension, DVT status post [place] filter placement, hypertension, hyperlipidemia, prior CVA, obstructive sleep apnea on CPAP.. She also has a history of advanced chronic obstructive pulmonary disease from previous chronic tobacco dependence with chronic hypoxemic respiratory failure on 4 L oxygen in the outpatient setting. She was recently seen by our group here on 09/28/2018 for blood loss anemia, melena and bright red blood per rectum. EGD had revealed a large hiatal hernia containing a large portion of the stomach. There is mild gastritis which was biopsied. Duodenal biopsies. Colonoscopy revealed diminutive transverse colon and descending colon polyps removed with cold forceps polypectomy. Mild diverticulosis. She was cleared to resume Eliquis at that time. She represented here to the emergency room this morning from her PCPs office after developing profound weakness and shortness of breath. Chest x-ray revealed mild cardiomegaly, mild fluid volume overload, moderate hiatal hernia. Labs revealed a white count of 11.7. Hemoglobin 9.9. INR 1.5. Creatinine 1.43. Troponin 0.036. ProBNP 6630. She is seen today in consultation on the selective care unit. She is currently awake and alert resting comfortably in bed. She is quite pale and weak. 18 O2 saturations in the 90s on 4 L/m per nasal cannula. Currently afebrile. Hemodynamically stable. Patient is seen today 11/05/2018 in follow-up on the selective care unit. She is currently sitting up at the bedside. Awake and alert in no acute distress. Maintaining good O2 saturations in the 90s on 5 L/m per nasal cannula. She's afebrile. Hemodynamically stable. Sodium 136. Potassium 4.2. Creatinine 1.56. She is currently on a Lasix drip at 5 mg per hour. Breathing a bit easier today as compared to yesterday. Objective - Vital Signs Vital signs: Vital Signs Temp 97.9 F 11/05/18 03:38 Pulse 101 H 06/08/19 07:45 Resp 20 11/05/18 03:38 BP 105/62 11/05/18 03:38 Pulse Ox 93 L 11/05/18 03:38 Intake & Output 11/04/18 11/05/18 11/05/18 18:59 06:59 18:59 Intake Total 346 195.667 360 Balance 346 195.667 360 Weight 98.1 kg Intake: Intake, IV Titration 80.667 Amount Furosemide 100 mg In 80.667 Sodium Chloride 0.9% 90 ml @ 5 MG/HR 5 mls/hr IV .Q20H [facility] Rx#:[id number] Oral 346 115 360 Other: Voiding Method Bedside Commode Bedside Commode # Voids 3 3 - Exam GENERAL EXAM: Pleasant 67-year-old female patient. On 5 L nasal cannula. HEAD: Normocephalic. EYES: Normal reaction of pupils, equal size. NOSE: Clear with pink turbinates. THROAT: No erythema or exudates. NECK: No masses, no JVD. CHEST: No chest wall deformity. LUNGS: Equal air entry with faint crackles in the bilateral posterior bases, diminished. CVS: S1 and S2 normal with no audible murmur, regular rhythm. ABDOMEN: No hepatosplenomegaly, normal bowel sounds, no guarding or rigidity. SPINE: No scoliosis or deformity SKIN: No rashes or areas of ecchymosis. CENTRAL NERVOUS SYSTEM: No focal deficits, tone is normal in all 4 extremities. EXTREMITIES: There is 1+ peripheral edema. No clubbing, slight cyanosis. Peripheral pulses are intact. - Labs CBC & Chem 7: 11/03/18 08:50 11/05/18 06:34 Labs: Abnormal Lab Results - Last 24 Hours (Table) 11/04/18 11/04/18 11/04/18 Range/Units 11:21 17:04 20:25 Sodium (137-145) mmol/L Chloride (98-107) mmol/L BUN (7-17) mg/dL Creatinine (0.52-1.04) mg/dL Glucose (74-99) mg/dL POC Glucose (mg/dL) 263 H 228 H 285 H (75-99) mg/dL 11/05/18 11/05/18 Range/Units 05:54 06:34 Sodium 136 L (137-145) mmol/L Chloride 95 L (98-107) mmol/L BUN 92 H (7-17) mg/dL Creatinine 1.56 H (0.52-1.04) mg/dL Glucose 276 H (74-99) mg/dL POC Glucose (mg/dL) 302 H (75-99) mg/dL Assessment and Plan Assessment: Impression: #1 Acute exacerbation of severe oxygen dependent chronic obstructive pulmonary disease. #2 Acute exacerbation of chronic systolic congestive heart failure. #3 Acute on chronic hypoxic respiratory failure secondary to above. #4 Severe pulmonary hypertension. RVSP 78 mmHg. #5 Moderate to severe tricuspid regurgitation. #6 Moderate mitral regurgitation. #7 History of aortic stenosis status post bioprosthetic aortic valve replacement #8 History of DVT, status post Vikram filter placement. #9 Paroxysmal atrial fibrillation, and daily with Eliquis. #10 Hypertension. #11 Hyperlipidemia. #12 Obstructive sleep apnea on CPAP therapy. #13 Coronary artery disease. #14 History of CVA/TIA with memory impairment. #15 History of previous chronic tobacco dependence on and off for 50 years. Quit in 2009. #16 Poor overall functional performance based on the above-mentioned multiple comorbidities. Plan: The patient was seen and evaluated by Dr. Phillips. We will continue DuoNeb inhalations 4 times a day and when necessary, Pulmicort and Perforomist inhalations every 12 hours. She's currently on azithromycin. Maintained on a Lasix drip. Anticoagulated with Eliquis. We will continue to follow make further recommendations based on her clinical status. I, the cosigning physician, performed a history & physical examination of the patient. Lungs sounds faint crackles in the bilateral posterior bases, diminished. Maintaining good O2 saturations in the 90s on 5 L/m per nasal cannula. I discussed the assessment and plan of care with my nurse practitioner, Melissa Feldman. I attest to the above note as dictated by her.
[2018-11-05 11:40] LABS: Glucose,Whole Blood 255 mg/dL (75-99)
--- NOTE | 2018-11-05 12:53 | P.PN ---
Subjective 67-year-old female was admitted for track and start failure exacerbation as well as a COPD exacerbation. Patient was on Lasix drip Lasix drip will be discontinued and patient was started on IV Lasix patient creatinine has worsened a bit but her is pretty status improved such any at night and person 5 L patient uses 4 L of oxygen at home. Her overall prognosis is extremely poor patient looks really tired wanted to go home. Constitutional: Fatigued Cardio vascular: denied any chest pain, palpitations Gastrointestinal denied any nausea vomiting Pulmonary: There is some improvement in shortness of breath Neurologic denied any new focal deficits All inpatient medications were reviewed and appropriate changes in these medications as dictated in the interval history and assessment and plan. Objective - Vital Signs Vital signs: Vital Signs Temp 97.5 F L 11/05/18 08:00 Pulse 68 11/05/18 08:00 Resp 22 11/05/18 08:00 BP 123/65 11/05/18 08:00 Pulse Ox 99 11/05/18 08:00 Intake & Output 11/04/18 11/05/18 11/05/18 18:59 06:59 18:59 Intake Total 346 195.667 360 Balance 346 195.667 360 Weight 98.1 kg Intake: Intake, IV Titration 80.667 Amount Furosemide 100 mg In 80.667 Sodium Chloride 0.9% 90 ml @ 5 MG/HR 5 mls/hr IV .Q20H [facility] Rx#:[id number] Oral 346 115 360 Other: Voiding Method Bedside Commode Bedside Commode Bedside Commode # Voids 3 3 1 - Exam PHYSICAL EXAMINATION: GENERAL: The patient is alert and oriented x3, not in any acute distress. Well developed, well nourished. Appears to be tired HEENT: Pupils are round and equally reacting to light. EOMI. No scleral icterus. No conjunctival pallor. Normocephalic, atraumatic. No pharyngeal erythema. No thyromegaly. CARDIOVASCULAR: S1 and S2 present. No murmurs, rubs, or gallops. Elevated JVD does have a systolic murmur and diuretic area mitral area diastolic murmur in the mitral area PULMONARY: Wheezing is improved and does have crackles ABDOMEN: Soft, nontender, nondistended, normoactive bowel sounds. No palpable organomegaly. MUSCULOSKELETAL: No joint swelling or deformity. EXTREMITIES: No cyanosis, clubbing, pedal edema appears to have improved NEUROLOGICAL: Gross neurological examination did not reveal any focal deficits. SKIN: No rashes. - Labs CBC & Chem 7: 11/03/18 08:50 11/05/18 06:34 Labs: Abnormal Lab Results - Last 24 Hours (Table) 11/04/18 11/04/18 11/05/18 Range/Units 17:04 20:25 05:54 Sodium (137-145) mmol/L Chloride (98-107) mmol/L BUN (7-17) mg/dL Creatinine (0.52-1.04) mg/dL Glucose (74-99) mg/dL POC Glucose (mg/dL) 228 H 285 H 302 H (75-99) mg/dL 11/05/18 11/05/18 Range/Units 06:34 11:36 Sodium 136 L (137-145) mmol/L Chloride 95 L (98-107) mmol/L BUN 92 H (7-17) mg/dL Creatinine 1.56 H (0.52-1.04) mg/dL Glucose 276 H (74-99) mg/dL POC Glucose (mg/dL) 255 H (75-99) mg/dL Assessment and Plan Plan: -Acute on chronic hypoxic and hypercapnic respiratory failure second to COPD etc. patient has a disease of exacerbation. Patient does have chronic systolic dysfunction as well as diastolic dysfunction as well as right-sided heart failure, cor pulmonale severe pulmonary hypertension all of which is contributing to her shortness of breath and patient will be on systemic steroids inhalational treatments along with IV Lasix. -COPD exacerbation -severe pulmonary hypertension with RVSP of 78 -Multi-valvular disease as mentioned above -History of DVT with Vikram filter next and haven't proximal atrial fibrillation presently rate controlled patient is an echo scheduled for near continue with rate control medications -Congestive heart failure chronic systolic as was diastolic dysfunction, ejection fraction of 45% with acute exacerbation -Acute renal failure prerenal azotemia secondary to heart failure exacerbation expected to improve with IV Lasix -Hypertension #10 hyperlipidemia -CVA TIA in the past -coronary artery disease -Obstructive sleep apnea on CPAP at home Her oral prognosis is extremely poor. Patient will need pharmacologic GI prophylaxis.
--- NOTE | 2018-11-05 13:51 | P.PN ---
Subjective Progress Note Date: 11/05/18 This is a 67-year-old female with history of paroxysmal atrial fibrillation, on Eliquis for anticoagulation, valvular heart disease with prior aortic valve replacement for aortic stenosis, moderate mitral regurgitation and severe tricuspid regurg, pulmonary hypertension, prior DVT with history of [place] filter placement, hypertension, hyperlipidemia, prior CVA, obstructive sleep apnea. She also has advanced COPD from prior chronic nicotine dependence and chronic hypoxemic respiratory failure on home O2 at 4 L. Patient had a recent GI bleed, EGD revealed a large hiatal hernia containing a large portion of the stomach. There is mild gastritis which was biopsied, duodenal biopsies also obtained. Colonoscopy revealed diminutive transverse colon and descending colon polyps which were removed, mild diverticulosis and the patient was cleared to resume Eliquis. She presented to the emergency room on this occasion with symptoms of profound weakness and associated shortness of breath. Chest x-ray on admission showed mild cardiomegaly, fluid volume overload and moderate hiatal hernia. White blood cell count 11.7, hemoglobin 9.9, INR 1.5, creatinine 1.4, troponin 0.036. BNP level 6630. Patient was seen and examined on the cardiac unit, sitting up in bed, afebrile and hemodynamically stable. Her EKG showed a normal sinus rhythm with T wave inversion noted in the lateral leads. 11/05/2018 A shunt was seen and examined today, sitting up in chair at bedside, awake and alert in no acute distress. Hemodynamically stable. Sodium 136, potassium 4.2, creatinine 1.5, IV Lasix drip was discontinued and patient was switched over to IV push twice a day dose. Objective - Vital Signs Vital signs: Vital Signs Temp 97.6 F 11/05/18 12:00 Pulse 90 11/05/18 13:06 Resp 22 11/05/18 12:00 BP 97/61 11/05/18 12:00 Pulse Ox 93 L 11/05/18 12:00 Intake & Output 11/04/18 11/05/18 11/05/18 18:59 06:59 18:59 Intake Total 346 195.667 720 Balance 346 195.667 720 Weight 98.1 kg Intake: Intake, IV Titration 80.667 Amount Furosemide 100 mg In 80.667 Sodium Chloride 0.9% 90 ml @ 5 MG/HR 5 mls/hr IV .Q20H BRISA Rx#:[id number] Oral 346 115 720 Other: Voiding Method Bedside Commode Bedside Commode Bedside Commode # Voids 3 3 1 - Exam GENERAL EXAM: Pleasant 67-year-old female patient. On 5 L nasal cannula. HEAD: Normocephalic. EYES: Normal reaction of pupils, equal size. NOSE: Clear with pink turbinates. THROAT: No erythema or exudates. NECK: No masses, no JVD. CHEST: No chest wall deformity. LUNGS: Equal air entry with faint crackles in the bilateral posterior bases, diminished. CVS: S1 and S2 normal with no audible murmur, regular rhythm. ABDOMEN: No hepatosplenomegaly, normal bowel sounds, no guarding or rigidity. SPINE: No scoliosis or deformity SKIN: No rashes or areas of ecchymosis. CENTRAL NERVOUS SYSTEM: No focal deficits, tone is normal in all 4 extremities. EXTREMITIES: There is 1+ peripheral edema. No clubbing, slight cyanosis. Peripheral pulses are intact. - Labs CBC & Chem 7: 11/03/18 08:50 11/05/18 06:34 Labs: Abnormal Lab Results - Last 24 Hours (Table) 11/04/18 11/04/18 11/05/18 Range/Units 17:04 20:25 05:54 Sodium (137-145) mmol/L Chloride (98-107) mmol/L BUN (7-17) mg/dL Creatinine (0.52-1.04) mg/dL Glucose (74-99) mg/dL POC Glucose (mg/dL) 228 H 285 H 302 H (75-99) mg/dL 11/05/18 11/05/18 Range/Units 06:34 11:36 Sodium 136 L (137-145) mmol/L Chloride 95 L (98-107) mmol/L BUN 92 H (7-17) mg/dL Creatinine 1.56 H (0.52-1.04) mg/dL Glucose 276 H (74-99) mg/dL POC Glucose (mg/dL) 255 H (75-99) mg/dL Assessment and Plan Plan: Impression and plan: #1 Acute exacerbation of severe oxygen dependent chronic obstructive pulmonary disease. #2 Acute exacerbation of chronic systolic congestive heart failure. #3 Acute on chronic hypoxic respiratory failure secondary to above. #4 Severe pulmonary hypertension. RVSP 78 mmHg. #5 Moderate to severe tricuspid regurgitation. #6 Moderate mitral regurgitation. #7 History of aortic stenosis status post bioprosthetic aortic valve replacement #8 History of DVT, status post Vikram filter placement. #9 Paroxysmal atrial fibrillation, on Eliquis for anticoagulation . #10 Hypertension. #11 Hyperlipidemia. #12 Obstructive sleep apnea on CPAP therapy. #13 Coronary artery disease. #14 History of CVA/TIA with memory impairment. #15 History of previous chronic tobacco dependence on and off for 50 years. Quit in 2009. #16 Poor overall functional performance based on the above-mentioned multiple comorbidities. Plan IV Lasix drip was discontinued and patient was changed over to IV push Lasix, we'll continue to monitor the intake and output along with daily weights and d cristi shites BUN and creatinine. DNP note has been reviewed, I agree with a documented findings and plan of care. Patient was seen and examined.
[2018-11-05] MEDS: SODIUM CHLORIDE 0.9% 500 ML 500 ML IV SCH (16:46)
[2018-11-05 17:15] LABS: Glucose,Whole Blood 343 mg/dL (75-99)
[2018-11-05 19:56] LABS: Glucose,Whole Blood 389 mg/dL (75-99)
[2018-11-05] MEDS ORDERED: INSULIN DETEMIR (LEVEMIR) 100 UNIT/ML SYR SQ SCH (21:00)
[2018-11-06] MEDS: ALPRAZolam 0.25 MG TAB PO PRN ×2 (02:55→20:53)
[2018-11-06 06:49] LABS: Calcium 8.5 mg/dL (8.4-10.2); Potassium 4.1 mmol/L (3.5-5.1)
[2018-11-06 06:58] LABS: Glucose,Whole Blood 336 mg/dL (75-99)
[2018-11-06] MEDS: INSULIN ASPART (NovoLOG) 100 UNIT/ML VIAL SQ SCH ×7 (07:07→20:53)
[2018-11-06] MEDS: AZITHROMYCIN 500 MG TAB PO SCH (08:28)
[2018-11-06] MEDS: ALLOPURINOL 100 MG TAB PO SCH (08:28)
[2018-11-06] MEDS: APIXABAN 5 MG TAB PO SCH ×2 (08:28→20:52)
[2018-11-06] MEDS: LISINOPRIL 5 MG TAB PO SCH (08:28)
[2018-11-06] MEDS: METOPROLOL SUCCINATE (ER) 50 MG TAB.ER.24H PO SCH (08:28)
[2018-11-06] MEDS: FAMOTIDINE 20 MG TAB PO SCH (08:28)
[2018-11-06] MEDS: predniSONE 20 MG TAB PO SCH (08:28)
[2018-11-06] MEDS: FUROSEMIDE 10 MG/ML 4 ML VIAL IV SCH (08:29)
[2018-11-06] MEDS: DONEPEZIL 10 MG TAB PO SCH (08:29)
[2018-11-06] MEDS: ACETAMINOPHEN TAB 500 MG TAB PO PRN ×3 (08:29→20:53)
[2018-11-06] MEDS: SPIRONOLACTONE 25 MG TAB PO SCH (08:29)
[2018-11-06] MEDS: ATORVASTATIN 40 MG TAB PO SCH (08:29)
[2018-11-06] MEDS: OXYBUTYNIN CHLORIDE 5 MG TAB PO SCH ×2 (08:29→20:52)
[2018-11-06] MEDS: ALBUTEROL NEBULIZED 2.5 MG/3 ML INHALATION SCH ×4 (08:30→20:20)
[2018-11-06] MEDS: BUDESONIDE 0.5 MG/2 ML NEBU INHALATION SCH ×2 (08:31→20:16)
--- NOTE | 2018-11-06 10:58 | P.PN ---
Subjective 67-year-old female was admitted for track and start failure exacerbation as well as a COPD exacerbation. Patient was on Lasix drip Lasix drip will be discontinued and patient was started on IV Lasix patient creatinine has worsened a bit but her is pretty status improved such any at night and person 5 L patient uses 4 L of oxygen at home. Her overall prognosis is extremely poor patient looks really tired wanted to go home. 11/06/2018 Kidney function marginally improved respiratory status improved significantly as per the patient patient doesn't have any crackles or wheezing pedal edema improved. Constitutional: Fatigued Cardio vascular: denied any chest pain, palpitations Gastrointestinal denied any nausea vomiting Pulmonary: There is some improvement in shortness of breath Neurologic denied any new focal deficits All inpatient medications were reviewed and appropriate changes in these medications as dictated in the interval history and assessment and plan. Objective - Vital Signs Vital signs: Vital Signs Temp 96.5 F L 11/06/18 08:00 Pulse 104 H 11/06/18 08:45 Resp 24 11/06/18 08:00 BP 104/55 11/06/18 08:00 Pulse Ox 95 11/06/18 08:00 Intake & Output 11/05/18 11/06/18 11/06/18 18:59 06:59 18:59 Intake Total 720 10 Balance 720 10 Weight 98.3 kg Intake: IV 10 0.9 10 Oral 720 Other: Voiding Method Bedside Commode Toilet # Voids 3 1 2 - Exam PHYSICAL EXAMINATION: GENERAL: The patient is alert and oriented x3, not in any acute distress. Well developed, well nourished. Appears to be tired HEENT: Pupils are round and equally reacting to light. EOMI. No scleral icterus. No conjunctival pallor. Normocephalic, atraumatic. No pharyngeal erythema. No thyromegaly. CARDIOVASCULAR: S1 and S2 present. No murmurs, rubs, or gallops. Elevated JVD does have a systolic murmur and diuretic area mitral area diastolic murmur in the mitral area PULMONARY: Good air entry into bilateral lung cordon no wheezing or crackles were appreciated. ABDOMEN: Soft, nontender, nondistended, normoactive bowel sounds. No palpable organomegaly. MUSCULOSKELETAL: No joint swelling or deformity. EXTREMITIES: No cyanosis, clubbing, pedal edema appears to have improved NEUROLOGICAL: Gross neurological examination did not reveal any focal deficits. SKIN: No rashes. - Labs CBC & Chem 7: 11/03/18 08:50 11/06/18 05:42 Labs: Abnormal Lab Results - Last 24 Hours (Table) 11/05/18 11/05/18 11/05/18 Range/Units 11:36 16:40 19:54 Sodium (137-145) mmol/L Chloride (98-107) mmol/L BUN (7-17) mg/dL Creatinine (0.52-1.04) mg/dL Glucose (74-99) mg/dL POC Glucose (mg/dL) 255 H 343 H 389 H (75-99) mg/dL 11/06/18 11/06/18 Range/Units 05:42 06:53 Sodium 136 L (137-145) mmol/L Chloride 95 L (98-107) mmol/L BUN 91 H (7-17) mg/dL Creatinine 1.41 H (0.52-1.04) mg/dL Glucose 334 H (74-99) mg/dL POC Glucose (mg/dL) 336 H (75-99) mg/dL Assessment and Plan Plan: -Acute on chronic hypoxic and hypercapnic respiratory failure second to COPD etc. patient has a disease of exacerbation. Patient does have chronic systolic dysfunction as well as diastolic dysfunction as well as right-sided heart failure, cor pulmonale severe pulmonary hypertension all of which is cont ributing to her shortness of breath and patient will be on systemic steroids inhalational treatments along with IV Lasix. -COPD exacerbation -severe pulmonary hypertension with RVSP of 78 -Multi-valvular disease as mentioned above -History of DVT with [place] filter next and haven't proximal atrial fibrillation presently rate controlled patient is an echo scheduled for near continue with rate control medications -Congestive heart failure chronic systolic as was diastolic dysfunction, ejection fraction of 45% with acute exacerbation -Acute renal failure prerenal azotemia secondary to heart failure exacerbation expected to improve with IV Lasix -Hypertension #10 hyperlipidemia -CVA TIA in the past -coronary artery disease -Obstructive sleep apnea on CPAP at home Her oral prognosis is extremely poor. Patient will need pharmacologic GI prophylaxis.
[2018-11-06 11:14] VITALS: BMI 38.4
[2018-11-06 12:15] LABS: Glucose,Whole Blood 281 mg/dL (75-99)
[2018-11-06] MEDS: FUROSEMIDE 80 MG TAB PO SCH (15:32)
[2018-11-06] MEDS: SODIUM CHLORIDE 0.9% 500 ML 500 ML IV SCH (15:32)
--- NOTE | 2018-11-06 15:42 | P.PN ---
Subjective Progress Note Date: 11/06/18 This 67-year-old female was admitted with increasing shortness of breath and evidence of exacerbation of congestive heart failure and COPD. Patient also has history of pulmonary hypertension and DVT . Patient also had aortic wall replacement for aortic stenosis. Patient seemed to be doing well. Patient was put on IV Lasix push yesterday. Probably this can be changed to by mouth Lasix. Lab values today showed a normal electrolytes. BUN is 91, creatinine is 1.41. Activity to be increased as tolerated. Possible discharge within next 24-48 hours Objective - Vital Signs Vital signs: Vital Signs Temp 97.5 F L 11/06/18 12:00 Pulse 108 H 11/06/18 13:20 Resp 20 11/06/18 12:00 BP 100/69 11/06/18 12:00 Pulse Ox 95 11/06/18 12:00 Intake & Output 11/05/18 11/06/18 11/06/18 18:59 06:59 18:59 Intake Total 720 10 10 Balance 720 10 10 Weight 98.3 kg 98.3 kg Intake: IV 10 0.9 10 Intake, IV Titration 10 Amount Sodium Chloride 0.9% 500 10 ml 500 ml @ 20 mls/hr IV .Q24H BRISA Rx#:[id number] Oral 720 Other: Voiding Method Bedside Commode Toilet # Voids 3 1 2 # Bowel Movements 1 - Exam GENERAL EXAM: Patient is alert and oriented and doesn't appear to be in any acute distress HEENT: Normocephalic. Normal reaction of pupils, equal size, normal range of extraocular motion. No erythema or exudates in the throat. NECK: No masses, no nuchal rigidity. CHEST: No chest wall deformity. LUNGS: Diminished air exchange HEART: S1 and S2 normal with no audible mumurs or gallops. Regular rhythm, femorals equal on both sides.. ABDOMEN: No hepatosplenomegaly, normal bowel sounds, no guarding or rigidity. SKIN: No rashes CENTRAL NERVOUS SYSTEM: No focal deficits. EXTREMITIES: Resolving edema - Labs CBC & Chem 7: 11/03/18 08:50 11/06/18 05:42 Labs: Abnormal Lab Results - Last 24 Hours (Table) 11/05/18 11/05/18 11/06/18 Range/Units 16:40 19:54 05:42 Sodium 136 L (137-145) mmol/L Chloride 95 L (98-107) mmol/L BUN 91 H (7-17) mg/dL Creatinine 1.41 H (0.52-1.04) mg/dL Glucose 334 H (74-99) mg/dL POC Glucose (mg/dL) 343 H 389 H (75-99) mg/dL 11/06/18 11/06/18 Range/Units 06:53 11:55 Sodium (137-145) mmol/L Chloride (98-107) mmol/L BUN (7-17) mg/dL Creatinine (0.52-1.04) mg/dL Glucose (74-99) mg/dL POC Glucose (mg/dL) 336 H 281 H (75-99) mg/dL Assessment and Plan (1) Acute exacerbation of CHF (congestive heart failure) Current Visit: No Status: Acute Code(s): I50.9 - HEART FAILURE, UNSPECIFIED SNOMED Code(s): 404480201 (2) Advanced COPD Current Visit: No Status: Acute Code(s): J44.9 - CHRONIC OBSTRUCTIVE PULMONARY DISEASE, UNSPECIFIED SNOMED Code(s): 79599393 (3) Chronic CHF Current Visit: No Status: Acute Code(s): I50.9 - HEART FAILURE, UNSPECIFIED SNOMED Code(s): 77214162 (4) Oxygen dependent Current Visit: No Status: Acute Code(s): Z99.81 - DEPENDENCE ON SUPPLEMENTAL OXYGEN SNOMED Code(s): 749883112778 Plan: May change to by mouth Lasix. Continue rest of the management. Prognosis is guarded
[2018-11-06 17:26] LABS: Glucose,Whole Blood 417 mg/dL (75-99)
--- NOTE | 2018-11-06 17:42 | PN ---
PROGRESS NOTE DATE OF SERVICE: 11/06/2018 This is a 67-year-old female who came in with shortness of breath. She had both an acute exacerbation of severe oxygen-dependent COPD as well as acute exacerbation of chronic systolic congestive heart failure. She suffers with chronic hypoxemic respiratory failure. In addition, she has a history of severe pulmonary hypertension, valvular heart disease in the form of both tricuspid regurgitation and mitral regurgitation as well as aortic stenosis, status post bioprosthetic aortic valve replacement. She has a history of DVT, paroxysmal atrial fibrillation, hypertension, hyperlipidemia, sleep apnea syndrome, CAD, CVA, previous heavy use of tobacco for 50 years and general medical debility. When we first saw her, she had significant acrocyanosis of the fingertips and toe tips and significant perioral cyanosis. She is actually looking much better today. She is much less short of breath. She is sitting at the bedside. She has got her oxygen in place. She denies any chest pain or chest discomfort. She feels like her breathing has improved. PHYSICAL EXAMINATION: Current vital signs are reviewed. Temperature 97.5, heart rate 108, respiratory rate 20, blood pressure 100/69, mean 79, 4 L saturation 95%. Appears in no acute distress. HEENT examination is grossly unremarkable. Mucous membranes are moist. There is still is a bit of perioral cyanosis. Nasal cannula noted. NECK: Supple. Full range of motion. No adenopathy or thyromegaly. Neck veins are flat. CARDIOVASCULAR examination reveals regular rhythm rate. Heart rate 105. S1, S2 normal. No S3, S4, or murmur. LUNGS: Reveal diminished breath sounds throughout. There are some expiratory wheezes and rhonchi. A few scattered crackles as well. All in all though, her lung sounds are much improved. ABDOMEN: Soft. Bowel sounds are heard. EXTREMITIES: Intact. There is some slight lower extremity edema. No cyanosis or clubbing today. SKIN: Without rash. NEUROLOGIC examination is brief but nonfocal. LAB DATA: Reviewed. Sodium 136, potassium 4.1, chloride 95, CO2 of 29, anion gap 12. BUN and creatinine were 91 and 1.41. No recent chest x-rays to look at. Medications are reviewed and are appropriate. ASSESSMENT: 1. Acute exacerbation of severe oxygen-dependent chronic obstructive pulmonary disease. 2. Acute exacerbation of chronic systolic congestive heart failure. 3. Acute on chronic hypoxemic respiratory failure secondary to #1 and 2. 4. Severe pulmonary hypertension with an RVSP of 78. 5. Moderate to severe tricuspid regurgitation. 6. Moderate mitral regurgitation. 7. History of aortic stenosis, status post bioprosthetic aortic valve replacement. 8. History of deep venous thrombosis, status post Vikram filter placement. 9. Paroxysmal atrial fibrillation. 10.Hypertension. 11.Hyperlipidemia. 12.Sleep apnea syndrome on CPAP therapy. 13.Coronary artery disease. 14.History of cerebrovascular accident/transient ischemic attack with memory impairment. 15.Previous history of chronic tobacco dependence for 50 years. 16.General medical debility. PLAN: Overall, the patient has seemed to improve with therapy. Both her heart failure and her COPD is much better controlled. She is much less short of breath. The acrocyanosis is not near as bad or it has completely dissipated altogether. She is still having shortness of breath, especially when she exerts herself. She does have a nonproductive cough. We will continue to follow. Prognosis is guarded. The patient was seeing the other timber management assistant, but they will see me in followup. No additional recommendations are made. MMODL / IJN: [id number] /
[2018-11-06 20:32] LABS: Glucose,Whole Blood 454 mg/dL (75-99)
[2018-11-06] MEDS ORDERED: INSULIN DETEMIR (LEVEMIR) 100 UNIT/ML SYR SQ SCH (21:00)
[2018-11-07 04:10] VITALS: RESP 20
[2018-11-07 05:53] LABS: Glucose,Whole Blood 347 mg/dL (75-99)
[2018-11-07] MEDS: INSULIN ASPART (NovoLOG) 100 UNIT/ML VIAL SQ SCH ×2 (06:48)
[2018-11-07] MEDS: ALBUTEROL NEBULIZED 2.5 MG/3 ML INHALATION SCH (07:11)
[2018-11-07] MEDS: BUDESONIDE 0.5 MG/2 ML NEBU INHALATION SCH (07:11)
[2018-11-07 07:27] LABS: Calcium 8.6 mg/dL (8.4-10.2); Potassium 4.2 mmol/L (3.5-5.1)
[2018-11-07] MEDS: METOPROLOL SUCCINATE (ER) 50 MG TAB.ER.24H PO SCH (08:34)
[2018-11-07] MEDS: OXYBUTYNIN CHLORIDE 5 MG TAB PO SCH (08:34)
[2018-11-07] MEDS: predniSONE 20 MG TAB PO SCH (08:34)
[2018-11-07] MEDS: APIXABAN 5 MG TAB PO SCH (08:34)
[2018-11-07] MEDS: ATORVASTATIN 40 MG TAB PO SCH (08:34)
[2018-11-07] MEDS: ALLOPURINOL 100 MG TAB PO SCH (08:34)
[2018-11-07] MEDS: DONEPEZIL 10 MG TAB PO SCH (08:34)
[2018-11-07] MEDS: LISINOPRIL 5 MG TAB PO SCH (08:34)
[2018-11-07] MEDS: AZITHROMYCIN 500 MG TAB PO SCH (08:34)
[2018-11-07] MEDS: FUROSEMIDE 80 MG TAB PO SCH (08:34)
[2018-11-07] MEDS: FAMOTIDINE 20 MG TAB PO SCH (08:34)
[2018-11-07] MEDS: SPIRONOLACTONE 25 MG TAB PO SCH (08:35)
[2018-11-07 11:06] VITALS: BP 143/60; PULSE 107; TEMP 96.6
[2018-11-07] MEDS ORDERED: FUROSEMIDE 10 MG/ML 4 ML VIAL IV STA (11:12)
--- NOTE | 2018-11-07 11:16 | P.DS ---
Providers Date of admission: 11/03/18 11:24 Attending physician: Sina Mitchell Consults: 11/03/18 11:24 Consult Physician Routine Consulting Provider: Francisco J Reno Consult Reason/Comments: heart failure Do you want consulting provider notified?: Yes 11/03/18 11:31 Consult Physician Routine Consulting Provider: João Betts Consult Reason/Comments: dyspnea Do you want consulting provider notified?: Yes Primary care physician: Sina Mitchell Hospital Course: 67-year-old female was admitted for track and start failure exacerbation as well as a COPD exacerbation. Patient was on Lasix drip Lasix drip will be discontinued and patient was started on IV Lasix patient creatinine has worsened a bit but her is pretty status improved such any at night and person 5 L patient uses 4 L of oxygen at home. Her overall prognosis is extremely poor patient looks really tired wanted to go home. 11/06/2018 Kidney function marginally improved respiratory status improved significantly as per the patient patient doesn't have any crackles or wheezing pedal edema improved. 11/07/2018 patient did improve overall kidney function improved patient wanted to go home but still short of breath but this is her baseline patient overall prognosis is extremely poor. Patient may actually be appropriate for comfort care but I'll let the Dr. Mitchell have the discussion as an outpatient. Patient is definitely h igh risk for readmission. Same thing was explained to the patient and patient Should come back to the hospital if she gets short of breath again. PHYSICAL EXAMINATION: GENERAL: The patient is alert and oriented x3, not in any acute distress. Well developed, well nourished. Appears to be tired HEENT: Pupils are round and equally reacting to light. EOMI. No scleral icterus. No conjunctival pallor. Normocephalic, atraumatic. No pharyngeal erythema. No thyromegaly. CARDIOVASCULAR: S1 and S2 present. No murmurs, rubs, or gallops. Elevated JVD does have a systolic murmur in aortic area mitral area diastolic murmur in the mitral area PULMONARY: Good air entry into bilateral lung cordon no wheezing or crackles were appreciated. ABDOMEN: Soft, nontender, nondistended, normoactive bowel sounds. No palpable organomegaly. MUSCULOSKELETAL: No joint swelling or deformity. EXTREMITIES: No cyanosis, clubbing, pedal edema appears to have improved NEUROLOGICAL: Gross neurological examination did not reveal any focal deficits. SKIN: No rashes. Assessment and Plan Plan: -Acute on chronic hypoxic and hypercapnic respiratory failure second to COPD etc. patient has a disease of exacerbation. Patient does have chronic systolic dysfunction as well as diastolic dysfunction as well as right-sided heart failure, cor pulmonale severe pulmonary hypertension all of which is contributing to her shortness of breath pulmonary being discharged on for oral Lasix and weaning dose of steroids -COPD exacerbation -severe pulmonary hypertension with RVSP of 78 -Multi-valvular disease as mentioned above -History of DVT with [place] filter next and haven't proximal atrial fibrillation presently rate controlled patient is an echo scheduled for near continue with rate control medications -Congestive heart failure chronic systolic as was diastolic dysfunction, ejection fraction of 45% with acute exacerbation -Acute renal failure prerenal azotemia secondary to heart failure exacerbation, improved with Lasix - type 2 diabetes mellitus uncontrolled blood sugars continues to systemic steroids patient was started on long-acting insulin and will be discharged today along with sliding scale and pre-meal insulin -Hypertension - hyperlipidemia -CVA TIA in the past -coronary artery disease -Obstructive sleep apnea on CPAP at home Patient Condition at Discharge: Fair Plan - Discharge Summary Discharge Rx Participant: No New Discharge Prescriptions: New INSULIN LISPRO (humaLOG) [humaLOG] 1 injection SQ DIRECTED #10 ml Furosemide [Lasix] 80 mg PO BID@0900,1600 #60 tab Insulin Detemir (Levemir) [Levemir] 30 unit SQ HS #1 syr predniSONE 10 mg PO DAILY #30 tab Metoprolol Succinate (ER) [Toprol XL] 50 mg PO DAILY #30 tab.er.24h Lisinopril [Zestril] 5 mg PO DAILY #30 tab Continue Atorvastatin [Lipitor] 40 mg PO DAILY Apixaban [Eliquis] 5 mg PO BID Oxybutynin Chloride [Ditropan] 5 mg PO BID Allopurinol [Zyloprim] 100 mg PO DAILY Donepezil [Aricept] 10 mg PO DAILY Spironolactone [Aldactone] 25 mg PO DAILY #30 tab Budesonide [Pulmicort] 0.5 mg INHALATION RT-BID Albuterol Nebulized [Ventolin Nebulized] 2.5 mg INHALATION RT-Q4H PRN PRN Reason: Shortness Of Breath ALPRAZolam [Xanax] 0.5 mg PO TID PRN PRN Reason: Anxiety Ranitidine HCl [Zantac] 150 mg PO DAILY Changed INSULIN LISPRO (humaLOG) [humaLOG] 7 unit SQ AC-TID #0 Discontinued metFORMIN HCL [Glucophage] 500 mg PO BID Insulin Detemir (Levemir) [Levemir] 20 unit PO DAILY Atenolol 25 mg PO PC-SUPPER Atenolol [Tenormin] 75 mg PO DAILY Discharge Medication List Apixaban [Eliquis] 5 mg PO BID 03/10/16 [History] Atorvastatin [Lipitor] 40 mg PO DAILY 03/10/16 [History] Allopurinol [Zyloprim] 100 mg PO DAILY 03/30/18 [History] Oxybutynin Chloride [Ditropan] 5 mg PO BID 03/30/18 [History] Donepezil [Aricept] 10 mg PO DAILY 09/06/18 [History] Spironolactone [Aldactone] 25 mg PO DAILY #30 tab 09/12/18 [Rx] Albuterol Nebulized [Ventolin Nebulized] 2.5 mg INHALATION RT-Q4H PRN 09/27/18 [History] Budesonide [Pulmicort] 0.5 mg INHALATION RT-BID 09/27/18 [History] ALPRAZolam [Xanax] 0.5 mg PO TID PRN 11/03/18 [History] Ranitidine HCl [Zantac] 150 mg PO DAILY 11/03/18 [History] Furosemide [Lasix] 80 mg PO BID@0900,1600 #60 tab 11/07/18 [Rx] INSULIN LISPRO (humaLOG) [humaLOG] 1 injection SQ DIRECTED #10 ml 11/07/18 [Rx] INSULIN LISPRO (humaLOG) [humaLOG] 7 unit SQ AC-TID #0 11/07/18 [Rx] Insulin Detemir (Levemir) [Levemir] 30 unit SQ HS #1 syr 11/07/18 [Rx] Lisinopril [Zestril] 5 mg PO DAILY #30 tab 11/07/18 [Rx] Metoprolol Succinate (ER) [Toprol XL] 50 mg PO DAILY #30 tab.er.24h 11/07/18 [Rx] predniSONE 10 mg PO DAILY #30 tab 11/07/18 [Rx] Follow up Appointment(s)/Referral(s): Sina Mitchell MD [Primary Care Provider] - 3 Days [facility], [NON-STAFF] - 1-2 Days João Betst MD [STAFF PHYSICIAN] - 1 Week Ambulatory/Diagnostic Orders: Basic Metabolic Panel [LAB.AMB] Time Frame: 3 Days, Location: None Selected Patient Instructions/Handouts: Heart Failure (DC), COPD (Chronic Obstructive Pulmonary Disease) (DC) Discharge Disposition: HOME WITH HOME HEALTH SERVICES
--- NOTE | 2018-11-07 13:57 | P.PN ---
Subjective Progress Note Date: 11/07/18 This is a 67-year-old female with history of paroxysmal atrial fibrillation, on Eliquis for anticoagulation, valvular heart disease with prior aortic valve replacement for aortic stenosis, moderate mitral regurgitation and severe tricuspid regurg, pulmonary hypertension, prior DVT with history of [place] filter placement, hypertension, hyperlipidemia, prior CVA, obstructive sleep apnea. She also has advanced COPD from prior chronic nicotine dependence and chronic hypoxemic respiratory failure on home O2 at 4 L. Patient had a recent GI bleed, EGD revealed a large hiatal hernia containing a large portion of the stomach. There is mild gastritis which was biopsied, duodenal biopsies also obtained. Colonoscopy revealed diminutive transverse colon and descending colon polyps which were removed, mild diverticulosis and the patient was cleared to resume Eliquis. She presented to the emergency room on this occasion with symptoms of profound weakness and associated shortness of breath. Chest x-ray on admission showed mild cardiomegaly, fluid volume overload and moderate hiatal hernia. White blood cell count 11.7, hemoglobin 9.9, INR 1.5, creatinine 1.4, troponin 0.036. BNP level 6630. Patient was seen and examined on the cardiac unit, sitting up in bed, afebrile and hemodynamically stable. Her EKG showed a normal sinus rhythm with T wave inversion noted in the lateral leads. 11/05/2018 Patient was seen and examined today, sitting up in chair at bedside, awake and alert in no acute distress. Hemodynamically stable. Sodium 136, potassium 4.2, creatinine 1.5, IV Lasix drip was discontinued and patient was switched over to IV push twice a day dose. 11/07/2018 Patient was seen and examined this morning, overall feeling well, still appears to be short of breath however active her normal according to the patient. From our perspective she may be able to be discharged home, a follow-up appointment will be made with Dr. Melony Sousa in the office post discharge. Objective - Vital Signs Vital signs: Vital Signs Temp 96.6 F L 11/07/18 08:25 Pulse 107 H 11/07/18 08:25 Resp 20 11/07/18 08:25 BP 143/60 11/07/18 08:25 Pulse Ox 89 L 11/07/18 08:25 Intake & Output 11/06/18 11/07/18 11/07/18 18:59 06:59 18:59 Intake Total 10 250 Output Total 1000 240 Balance -990 10 Weight 98.3 kg 95.5 kg Intake: IV 10 0.9 10 Intake, IV Titration 10 Amount Sodium Chloride 0.9% 500 10 ml 500 ml @ 20 mls/hr IV .Q24H [facility] Rx#:[id number] Oral 240 Output: Urine 1000 240 Other: Voiding Method Toilet Bedside Commode # Voids 2 1 # Bowel Movements 1 1 - Exam GENERAL EXAM: Pleasant 67-year-old female patient. On 5 L nasal cannula. HEAD: Normocephalic. EYES: Normal reaction of pupils, equal size. NOSE: Clear with pink turbinates. THROAT: No erythema or exudates. NECK: No masses, no JVD. CHEST: No chest wall deformity. LUNGS: Equal air entry with fine expiratory wheezes. CVS: S1 and S2 normal with no audible murmur, regular rhythm. ABDOMEN: No hepatosplenomegaly, normal bowel sounds, no guarding or rigidity. SPINE: No scoliosis or deformity SKIN: No rashes or areas of ecchymosis. CENTRAL NERVOUS SYSTEM: No focal deficits, tone is normal in all 4 extremities. EXTREMITIES: There is 1+ peripheral edema. No clubbing, slight cyanosis. Peripheral pulses are intact. - Labs CBC & Chem 7: 11/03/18 08:50 11/07/18 06:12 Labs: Abnormal Lab Results - Last 24 Hours (Table) 11/06/18 11/06/18 11/07/18 Range/Units 17:11 20:31 05:51 Chloride (98-107) mmol/L Carbon Dioxide (22-30) mmol/L BUN (7-17) mg/dL Creatinine (0.52-1.04) mg/dL Glucose (74-99) mg/dL POC Glucose (mg/dL) 417 H 454 H 347 H (75-99) mg/dL 11/07/18 Range/Units 06:12 Chloride 97 L (98-107) mmol/L Carbon Dioxide 32 H (22-30) mmol/L BUN 79 H (7-17) mg/dL Creatinine 1.13 H (0.52-1.04) mg/dL Glucose 323 H (74-99) mg/dL POC Glucose (mg/dL) (75-99) mg/dL Assessment and Plan Plan: Impression and plan: #1 Acute exacerbation of severe oxygen dependent chronic obstructive pulmonary disease. #2 Acute exacerbation of chronic systolic congestive heart failure. #3 Acute on chronic hypoxic respiratory failure secondary to above. #4 Severe pulmonary hypertension. RVSP 78 mmHg. #5 Moderate to severe tricuspid regurgitation. #6 Moderate mitral regurgitation. #7 History of aortic stenosis status post bioprosthetic aortic valve replacement #8 History of DVT, status post [place] filter placement. #9 Paroxysmal atrial fibrillation, on Eliquis for anticoagulation . #10 Hypertension. #11 Hyperlipidemia. #12 Obstructive sleep apnea on CPAP therapy. #13 Coronary artery disease. #14 History of CVA/TIA with memory impairment. #15 History of previous chronic tobacco dependence on and off for 50 years. Quit in 2009. #16 Poor overall functional performance based on the above-mentioned multiple comorbidities. Plan From Cardiology's perspective, patient may be able to be discharged home today. We'll make a follow-up appointment in the office with Dr. Melony Sousa post discharge. DNP note has been reviewed, I agree with a documented findings and plan of care. Patient was seen and examined.
--- NOTE | 2018-11-08 11:31 | CDI ---
Documentation Clarification Form Date: 11/08/2018 11:12:23 AM From: TIKA Polanco; [employer] Phone: If you have a question about this query, please contact [employer]anda [employer] at [phone] between 8 am and 5 pm. Admit Date: 11/03/2018 11:24:00 AM Patient Name: Dinora Castro Visit Number: [id number] Discharge Date: 11/07/2018 12:24:00 PM ATTENTION: The Clinical Documentation Specialists (CDI) and [facility] Coding Staff appreciate your assistance in clarifying documentation. Please respond to the clarification below the line at the bottom and electronically sign. The CDI & [facility] Coding staff will review the response and follow-up if needed. Please note: Queries are made part of the Legal Health Record. If you have any questions, please contact the author of this message via ITS. Dr. Angelic Brenner The patient has diabetes, as indicated on history and physical dated 11-04. Documentation on discharge summary states type 2 diabetes with uncontrolled blood sugars. History/Risk Factors: Patient presented with exacerbation of CHF, along with COPD and respiratory failure. Clinical Indicators: Shortness of breath, cough. Treatment: IV Lasix and po Prednisone. Blood sugars ranged from 197, 276, 334,323. In order to capture the severity of Illness and necessary documentation specificity, please clarify? Uncontrolled DM Type 2 with hyperglycemia Uncontrolled DMType 2 with hypoglycemia Other, please specify Unable to Determine Uncontrolled DM Type 2 with hyperglycemia MTDD
== END 2018-11-07 12:24 | disposition home health service (06) | DRG 291 ==
LOC: EC 08:27 → 3SCARD 11:24
PROVIDERS: ADMIT Family Medicine; ATTEND Family Medicine
DX: I13.0 Hypertensive heart and chronic kidney disease with heart failure and stage 1 through stage 4 chronic kidney disease, or unspecified chronic kidney disease (principal); I50.23 Acute on chronic systolic (congestive) heart failure; J96.21 Acute and chronic respiratory failure with hypoxia; J96.22 Acute and chronic respiratory failure with hypercapnia; J44.1 Chronic obstructive pulmonary disease with (acute) exacerbation; N17.9 Acute kidney failure, unspecified; D12.3 Benign neoplasm of transverse colon; D12.4 Benign neoplasm of descending colon; E78.5 Hyperlipidemia, unspecified; E86.0 Dehydration; F41.9 Anxiety disorder, unspecified; G47.33 Obstructive sleep apnea (adult) (pediatric); I08.3 Combined rheumatic disorders of mitral, aortic and tricuspid valves; I25.10 Atherosclerotic heart disease of native coronary artery without angina pectoris; I25.2 Old myocardial infarction; I27.29 Other secondary pulmonary hypertension; I27.81 Cor pulmonale (chronic); I42.9 Cardiomyopathy, unspecified; E11.22 Type 2 diabetes mellitus with diabetic chronic kidney disease; N18.9 Chronic kidney disease, unspecified; I48.0 Paroxysmal atrial fibrillation; I48.2 Chronic atrial fibrillation; K21.9 Gastro-esophageal reflux disease without esophagitis; K29.70 Gastritis, unspecified, without bleeding; K44.9 Diaphragmatic hernia without obstruction or gangrene; K57.90 Diverticulosis of intestine, part unspecified, without perforation or abscess without bleeding; E11.65 Type 2 diabetes mellitus with hyperglycemia; T38.0X5A Adverse effect of glucocorticoids and synthetic analogues, initial encounter; Z79.01 Long term (current) use of anticoagulants; Z79.4 Long term (current) use of insulin; Z79.899 Other long term (current) drug therapy; Z86.718 Personal history of other venous thrombosis and embolism; Z86.73 Personal history of transient ischemic attack (TIA), and cerebral infarction without residual deficits; Z87.891 Personal history of nicotine dependence; Z90.710 Acquired absence of both cervix and uterus; Z95.3 Presence of xenogenic heart valve; Z95.5 Presence of coronary angioplasty implant and graft; Z99.81 Dependence on supplemental oxygen; Z88.5 Allergy status to narcotic agent; Z88.0 Allergy status to penicillin; Z99.89 Dependence on other enabling machines and devices; Z98.42 Cataract extraction status, left eye; Z98.41 Cataract extraction status, right eye
CPT/HCPCS: 36415; 71046; 80048; 80053; 82803; 83735; 83880; 84484; 85025; 85610; 85730; 93005; 94640; 96361; 96374; 96375; 99285

== ENCOUNTER → 2019-01-17 | Outpatient (CLI) | payer MEDICARE ==
[2019-01-18 09:38] LABS: Appearance,Urine Clear (Clear); Bilirubin,Urine Negative (Negative); Blood,Urine Trace (Negative); Color,Urine Yellow; Glucose,Urine (UA) Negative (Negative); Granular Casts,Urine 6 /lpf (0); Hyaline Casts,Urine 6 /lpf (0-2); Ketones,Urine Negative (Negative); Leukocyte Esterase,Urine Large (Negative); Mucus,Urine Rare /hpf; Nitrite,Urine Negative (Negative); PH, Urine 5.5 (5.0-8.0); Protein,Urine 1+ (Negative); RBC,Urine 8 /hpf (0-5); Specific Gravity,Urine 1.013 (1.001-1.035); Squamous Epithelial Cell,Urine 4 /hpf (0-4); Urobilinogen,Urine <2.0 mg/dL (<2.0); WBC,Urine 24 /hpf (0-5)
== END ==
LOC: LABWHC1 19:00
PROVIDERS: ATTEND Registered Nurse
DX: R30.0 Dysuria (principal); R35.0 Frequency of micturition
CPT/HCPCS: 81001; 87086